=== PATIENT | male | born 1950 | race Caucasian/White ===

== ENCOUNTER 2024-02-02 15:41 | Outpatient (CLI) | payer MEDICARE, SELFPAY ==
[2024-02-02 16:35] LABS: Basophils # 0.2 K/mm3 (0-0.2); Basophils % 1.3 % (0.1-2.0); Eosinophils # 0.9 K/mm3 (0.0-0.4); Eosinophils % 7.3 % (0.1-12.0); Hematocrit 38.1 % (42.0-52.0); Hemoglobin 12.2 g/dL (14.1-18.0); Lymphocytes # 2.6 K/mm3 (0.7-4.5); Lymphocytes % 21.8 % (10-50); Mean Corpuscular Volume 87.5 fl (80-94); Mean Platelet Volume 9.5 fl (7.4-10.4); Monocytes # 0.8 K/mm3 (0.1-1.0); Monocytes % 6.3 % (1.7-9.3); Neutrophils # 7.6 K/mm3 (1.8-7.8); Neutrophils % 63.4 % (37.0-80.0); Platelet Count 343 K/mm3 (142-424); Red Blood Count 4.35 M/mm3 (4.60-6.20); Red Cell Distribution Width 16.1 % (11.5-17.5); White Blood Count 11.9 K/mm3 (4.8-10.8)
[2024-02-02 16:56] LABS: Alanine Aminotransferase 20 U/L (12-78); Albumin Level 3.8 g/dl (3.5-5.0); Alkaline Phosphatase 92 U/L (38-126); Anion Gap 11.9 mEq/L (5-15); Aspartate Amino Transferase 23 U/L (17-59); Bilirubin,Direct 0.1 mg/dl (0.0-0.4); Bilirubin,Indirect 0.2 mg/dL (0.0-0.9); Bilirubin,Total 0.3 mg/dl (0.2-1.3); Bilirubin,Unconjugated 0.2 mg/dL (0.0-1.1); Blood Urea Nitrogen 24 mg/dl (9-20); Calcium 9.3 mg/dl (8.4-10.2); Carbon Dioxide 23 mmol/L (22.0-30.0); Chloride 108 mmol/L (98-107); Cholesterol 193 mg/dl (140-200); Estimated Glomerular Filt Rate 54 ml/min (>60); GFR (African American) 65 ML/MIN (>60); Glucose 160 mg/dl (74-100); HDL Cholesterol 48 mg/dl (40-60); Potassium 4.9 mmoL/L (3.5-5.1); Sodium 138 mmol/L (136-145); Total Protein,Serum 6.2 g/dl (6.3-8.2); Triglycerides 150 mg/dl (30-150); VLDL Cholesterol 30 mg/dL (0-40)
[2024-02-02 17:06] LABS: Direct LDL Cholesterol 96.27 mg/dL (100-129)
[2024-02-02 17:10] LABS: Free T4 (Free Thyroxine) 1.37 ng/dl (0.78-2.19)
[2024-02-02 17:25] LABS: Thyroid Stimulating Hormone 1.96 uIU/mL (0.465-4.68)
[2024-02-02 17:30] LABS: Hemoglobin A1C 7.8 % (4.0-6.0)
== END 2024-02-02 23:59 | disposition home or self-care (01) ==
LOC: LAB 15:43
PROVIDERS: PCP Emergency Medicine; Visit Provider Nurse Practitioner Family
DX: R55 Syncope and collapse (principal); E78.2 Mixed hyperlipidemia; I49.9 Cardiac arrhythmia, unspecified; E11.9 Type 2 diabetes mellitus without complications; Z79.4 Long term (current) use of insulin; Z79.84 Long term (current) use of oral hypoglycemic drugs
CPT/HCPCS: 36415; 80048; 80061; 80076; 83036; 84439; 84443; 85025; 93270

== ENCOUNTER 2024-02-23 11:51 | Outpatient (CLI) | payer MEDICARE, OTHER, SELFPAY ==
--- NOTE | 2024-02-23 | CA_ITS ---
APPROVED REPORT Exam: Pharmacologic Technologist: Hyun Wheat Ht: 5 ft 10 in Wt: 275 lbs BSA: 2.39 m2 HR: 63 bpm BP: 159/78 mmHg Rhythm: NSR Indications: Syncope Medical History Medications: Levothyroxine,,,,, Aspirin,,,,, Lispro,,,,, Metformin,,,,, Vitamin D3,,,,, Losartan,,,,, Pantoprazole,,,,, Atorvastatin,,,,, HCTZ,,,,, Carvedilol,,,,, Buspirone,,,,, INSULIN,,,,, Stress Test Details Test: LEXISCAN HR Resting HR: 64 bpm Max Heart Rate (APMHR): 147 bpm Max HR Achieved: 81 bpm Target HR (85% APMHR): 125 bpm % of APMHR: 55 Recovery HR: 69 bpm BP Resting BP: 159.0/78.0 mmHg Max BP: 159.0/78.0 mmHg Recovery BP: 158.0/73.0 mmHg ECG Resting ECG: Normal sinus rhythm Stress ECG: No significant ST changes Arrhythmia: PVCs Clinical Exercise duration: 04:19 min Highest Stage Achieved: Exercise capacity: 1.0 METs Stress ECG Conclusion Symptoms: Mild shortness of air, chest tightness and head discomfort. Arrhythmias/Ectopy: PVCs ST-T Changes: No significant ST changes. Conclusion: Unremarkable Lexiscan stress. Myoview images reported separately. Test Summary REST . . . . . . . Resting REST 05:28 . . 64 . 159/ 78 . . Stage 1 . . . . . . . Myoview Injected Stage 1 01:00 . . 71 . . . . Stage 2 . . . . . . . chest pressure Stage 2 01:00 . . 79 . . . . Stage 3 01:00 . . 75 . 151/ 72 . . Stage 4 01:00 . . 78 . 158/ 73 . . Stage 4 01:19 . . 81 . 148/ 70 . Stop exercise at 04:19 RECOVERY 01:00 . . 72 . . . . RECOVERY 02:00 . . 70 . 151/ 76 . . RECOVERY 03:00 . . 69 . 158/ 73 . . RECOVERY 03:30 . . 69 . 158/ 73 . . Electronically signed by : Myra Campbell MD 02/24/2024 12:05:45
--- NOTE | 2024-02-23 11:52 | NM_ITS ---
APPROVED REPORT Exam: Nuclear Stress Test Indication: HTN, OBESITY, DM, HYPERLIPIDEMIA, TOB USE, SOB, SYNCOPE, FTIGUE Patient Location: Outpatient Stress Tech: Hyun Wheat NH Tech:Tequila Weston CHRISTIANO RT (R)(N)(M) Ht: 5 ft 10 in Wt: 272 lbs HR: 64 bpm BP: 159/78 mmHg BSA: 2.38 m2 TID: 1.02 BMI: 39.0 History: HTN, OBESITY, DM, HYPERLIPIDEMIA, TOB USE, SOB, SYNCOPE, FTIGUE PT COULD NOT LAY ON STOMACH FOR PRONE IMAGES Procedure: Patient received 0.4 mg of intravenous Lexiscan, resting heart rate 64 bpm, resting blood pressure 159/78 mmHg, with Lexiscan maximum heart rate achieved was 81 bpm which is % of the maximum predicted heart rate and blood pressure was 159/78 mmHg. With Lexiscan, patient denied any complaint of chest pain. Cardiac Stress and Resting SPECT Images: Cardiac Stress and Resting SPECT images were obtained using technetium 99m Myoview 31.0 mCi stress and 10.32 mCi at rest. Raw images demonstrate significant soft tissue and diaphragmatic overlap with the cardiac borders. The patient is also unable to lie on his abdomen. Therefore, prone stress imaging could not be performed. This may affect the diagnostic interpretation of the study findings. Resting and stress imaging in supine positions demonstrate a large sized, severe, predominantly fixed perfusion defect in the inferior LV wall from the base and extending towards the inferoapical region. There is minimal surrounding reversibility. Gated imaging demonstrates normal global LV systolic function. There is mild hypokinesis of the basal inferior LV wall. LVEF is calculated at 55%. Conclusion: Large sized, severe, predominantly fixed perfusion defect in the inferior LV wall from the base and extending towards the inferoapical region. There is minimal surrounding reversibility. Gated imaging demonstrates normal global LV systolic function. There is mild hypokinesis of the basal inferior LV wall. LVEF is calculated at 55%. Electronically signed by : Myra Campbell MD 02/24/2024 12:07:56
[2024-02-23] MEDS: SODIUM CHLORIDE 0.9% 10ML SYR (RAD ONLY) 10 ML IV ×2 (12:00→13:00)
[2024-02-23] MEDS: REGADENOSON 0.4MG/5ML SYRINGE 0.400000000000000022 MG IV (13:30)
[2024-02-23] MEDS: ISOTOPE MYOVIEW (PER STUDY) 1 DOSE IV (13:37)
--- NOTE | 2024-02-23 13:43 | CA_ITS ---
FINAL REPORT TECHNIQUE: Color Doppler, duplex Doppler and hazel scale sonography of the bilateral neck arterial vasculature was performed. Velocities were measured in the carotid arteries. Stenosis evaluation based on the validated velocity criteria. CLINICAL HISTORY: TERRANCE,PRIOR LT ENDART FINDINGS: The peak systolic velocity of the right common carotid artery is 67 cm/s. The peak systolic velocity of the right internal carotid artery is 135 cm/s and end diastolic velocity 15 cm/s. The ICA/CCA ratio is 2.3. A small amount of plaque is present. The right external carotid artery is patent. The right vertebral artery is patent with antegrade flow. The peak systolic velocity of the left common carotid artery is 90 cm/s. The peak systolic velocity of the left internal carotid artery is 163 cm/s and end diastolic velocity 35 cm/s. The ICA/CCA ratio is 3.0. A small amount of plaque is present. The left external carotid artery is patent.The left vertebral artery is patent with antegrade flow. IMPRESSION: Less than 50% bilateral carotid stenoses. Bilateral patent vertebral arteries with antegrade flow. If indicated, CTA or MRA could further evaluate. Reviewed, Interpreted and Dictated by Yoshi French III, MD Transcribed by Rose De Leon Authenticated and [facility]
--- NOTE | 2024-02-23 13:43 | CA_ITS ---
APPROVED REPORT EXAM: Comprehensive 2D, Doppler, and color-flow Echocardiogram Head End Desizing Machine Operator: Savi Springer RT(R) Ht: 5 ft 10 in Wt: 275lbs BSA: 2.39 BP: 113/63 mmHg Indications: SOA, COPD, HTN, DM, Syncope, sarcoid, O2 dependent, hyperlipidemia. 2D Dimensions LVEF (Hung's) 67.00 % M: 52 - 72 LV Volume 139.40 mL M: 62 - 150 LV Volume Index 58.3 mL/m2 M: 34 - 74 LA Volume 88.50 mL LA Volume Index 37.03 mL/m2 (M/F) 16-34 EF AP4 67.30 % EF AP2 67.3 % EF BP 67.0 % GL Strain -21.1 % M-Mode Dimensions RVDd 3.15 cm (0.9-2.6) LA Diam 4.39 cm (1.9-4.0) LVDd 5.04 cm (3.5-5.7) LVDs 3.64 cm (3.5-5.7) IVSd 1.12 cm (0.6-1.1) PWd 1.12 cm (0.6-1.1) EF (Teich) 53.60% FS 27.80% EDV (Teich) 120.50 mL ESV (Teich) 55.90 mL LV Diastology E Decel Time 293 (160-240 msec) E/A Ratio 0.9 Mitral Valve MV E Max Pranav. 83.0 (40-130 cm/s) MV A Velocity 97.0 (40-130 cm/s) E/A Ratio 0.86 MV PHT 86.0 ms Left Ventricle The left ventricle is normal size. The left ventricular systolic function is normal. The left ventricular ejection fraction is within the normal range. Increased LV wall thickness. There is normal LV segmental wall motion. Transmitral Doppler flow pattern suggests impaired LV relaxation. LVEF is 60%. Right Ventricle The right ventricle is normal size. The right ventricular systolic function is normal. Atria The left atrium is mildly dilated. The right atrium size is normal. The interatrial septum is not well-visualized. Aortic Valve The aortic valve is mildly thickened. There is no aortic valvular stenosis. Trace aortic regurgitation. Mitral Valve The mitral valve leaflets are mildly thickened. Trace mitral regurgitation. No evidence of mitral valve stenosis. Tricuspid Valve The tricuspid valve leaflets are thin and pliable. Trace tricuspid regurgitation. There is insufficient TR jet to estimate RVSP. Pulmonic Valve The pulmonary valve is normal in structure. Trace pulmonic regurgitation. Great Vessels The aortic root is normal in size. The ascending aorta is not well-visualized. The IVC is not well-visualized. Pericardium There is no pericardial effusion. Other Information Study Quality: Fair Conclusion Normal biventricular systolic function. No significant valvular stenosis or regurgitation. If clinical concern for cardiac sarcoidosis (in the setting of known history of sarcoidosis), further evaluation with cardiac MRI (cardiomyopathy protocol) is recommended. Electronically signed by : Myra Campbell MD 02/27/2024 22:01:59
== END 2024-02-23 23:59 | disposition home or self-care (01) ==
PROVIDERS: PCP Emergency Medicine; Visit Provider Nurse Practitioner Family
DX: R06.02 Shortness of breath (principal); R55 Syncope and collapse; I65.23 Occlusion and stenosis of bilateral carotid arteries; I10 Essential (primary) hypertension
CPT/HCPCS: 78452; 93017; 93018; 93306; 93880; A9502; J2785

== ENCOUNTER 2024-03-07 08:47 | Day surgery (SDC) | payer MEDICARE, OTHER, SELFPAY ==
[2024-03-07] VITALS (9 sets, daily range): BP systolic 142–163; BP diastolic 85–93; PULSE 70–85; RESP 15–18; TEMP 36.6; O2SAT 95–97; BMI 39.4
--- NOTE | 2024-03-07 07:18 | IR_ITS ---
APPROVED REPORT Patient Location: Outpatient PROCEDURES Left heart catheterization Left ventriculogram Selective coronary angiogram INDICATION Abnormal Myoview, Angina pectoris, Informed consent was obtained prior to the procedure. COMPLICATIONS NONE Estimated Blood Loss: LESS THAN 10 ML TECHNIQUE One percent lidocaine used to anesthetize the right anterior aspect of the wrist. The right radial artery was accessed via the Seldinger technique. A 6 Singaporean sheath was placed in the right radial artery. 2.5 mg of Verapamil, 800 mcg of nitroglycerin, 1mg Lidocaine and 5000 U Heparin were given through the arterial sheath. The papa catheter was also used to perform left heart catheterization, left ventriculogram and selective coronary angiogram. At the end of the procedure the sheath was removed good hemostasis was achieved using Traclet band, patient was transferred to the postop holding area in stable condition. ANGIOGRAPHIC RESULTS The left main artery Normal The left anterior descending artery Has proximal 2030% stenosis with mid vessel 20 to 30% stenosis along a tortuous bend The circumflex artery Dominant gives rise to a large ramus intermedius which has a proximal 40% stenosis. The true circumflex artery has mild 30% stenosis The right coronary artery Nondominant yet still large with 10 to 20% luminal regularities The FINK ventriculogram reveals Normal 65% The left ventricular end-diastolic pressure 15 mmHg IMPRESSION Mild to moderate coronary disease as described above Normal ejection fraction Borderline elevated LVEDP PLAN 1. Medical management 2. Aggressive risk factor modification Electronically signed by : Alessandro Davis MD 03/07/2024 13:58:40
[2024-03-07 09:17] LABS: Basophils # 0.2 K/mm3 (0-0.2); Basophils % 1.2 % (0.1-2.0); Eosinophils # 0.9 K/mm3 (0.0-0.4); Eosinophils % 6.9 % (0.1-12.0); Hematocrit 39.2 % (42.0-52.0); Hemoglobin 12.3 g/dL (14.1-18.0); Lymphocytes # 3.7 K/mm3 (0.7-4.5); Lymphocytes % 27.4 % (10-50); Mean Corpuscular HGB Conc 31.3 g/dL (31.8-35.4); Mean Corpuscular Volume 86.3 fl (80-94); Monocytes # 0.8 K/mm3 (0.1-1.0); Neutrophils # 7.8 K/mm3 (1.8-7.8); Neutrophils % 58.3 % (37.0-80.0); Platelet Count 383 K/mm3 (142-424); Red Blood Count 4.55 M/mm3 (4.60-6.20); Red Cell Distribution Width 15.2 % (11.5-17.5); White Blood Count 13.4 K/mm3 (4.8-10.8)
[2024-03-07 09:22] LABS: Anion Gap 15.7 mEq/L (5-15); Blood Urea Nitrogen 18 mg/dl (9-20); Calcium 9.5 mg/dl (8.4-10.2); Carbon Dioxide 28 mmol/L (22.0-30.0); Chloride 100 mmol/L (98-107); Creatinine Clearance Estimated 97 mL/min (50-200); Estimated Glomerular Filt Rate 59 ml/min (>60); GFR (African American) 72 ML/MIN (>60); Glucose 177 mg/dl (74-100); Potassium 3.7 mmoL/L (3.5-5.1); Sodium 140 mmol/L (136-145)
[2024-03-07] MEDS: VERAPAMIL 2.5MG/ML 2ML VIAL 2.5 MG IV (13:28)
[2024-03-07] MEDS: LIDOCAINE 1% 10ML MDV 20 ML IJ (13:28)
[2024-03-07] MEDS: HEPARIN 1,000 UNITS/500ML NS (CATH LAB) 3000 UNIT IV (13:28)
[2024-03-07] MEDS: diphenhydrAMINE 50MG/ML VIAL 50 MG IV (13:28)
[2024-03-07] MEDS: HEPARIN 1,000 UNITS/ML 10ML VIAL (CATH LAB) 10000 UNIT IV (13:29)
[2024-03-07] MEDS: NITROGLYCERIN 800MCG/8ML SYR (CATH LAB) 800 MCG IA (13:29)
[2024-03-07] MEDS: IOPAMIDOL-370 (76%);100ML BOTTLE 60 ML IV (14:28)
[2024-03-07] MEDS: FENTANYL 100MCG/2ML VIAL 50 MCG IV (14:43)
[2024-03-07] MEDS: MIDAZOLAM HCL 1MG/1ML 5ML VIAL 1 MG IV (14:44)
== END 2024-03-07 15:53 | disposition home or self-care (01) ==
PROVIDERS: PCP Emergency Medicine; Visit Provider Internal Medicine
DX: R93.1 Abnormal findings on diagnostic imaging of heart and coronary circulation (principal); D86.9 Sarcoidosis, unspecified; R55 Syncope and collapse; Z99.81 Dependence on supplemental oxygen; J44.89 Other specified chronic obstructive pulmonary disease; I65.23 Occlusion and stenosis of bilateral carotid arteries; I71.21 Aneurysm of the ascending aorta, without rupture; E11.9 Type 2 diabetes mellitus without complications; Z79.4 Long term (current) use of insulin; E78.2 Mixed hyperlipidemia; I10 Essential (primary) hypertension; R42 Dizziness and giddiness; R06.02 Shortness of breath; I25.118 Atherosclerotic heart disease of native coronary artery with other forms of angina pectoris; Z79.899 Other long term (current) drug therapy
CPT/HCPCS: 80048; 85025; 93458; 99152; C1725; C1760; C1769; J1644; Q9967

== ENCOUNTER 2024-07-11 15:13 | Outpatient (CLI) | payer MEDICARE, OTHER, SELFPAY ==
[2024-07-11 16:04] LABS: Basophils # 0.1 K/mm3 (0-0.2); Basophils % 0.5 % (0.1-2.0); Eosinophils # 0.1 K/mm3 (0.0-0.4); Eosinophils % 0.9 % (0.1-12.0); Hematocrit 38.6 % (42.0-52.0); Lymphocytes # 1.3 K/mm3 (0.7-4.5); Mean Corpuscular Hemoglobin 27.7 pg (27.0-31.2); Mean Corpuscular Volume 89.5 fl (80-94); Mean Platelet Volume 8.5 fl (7.4-10.4); Monocytes # 0.5 K/mm3 (0.1-1.0); Neutrophils # 8.6 K/mm3 (1.8-7.8); Neutrophils % 81.7 % (37.0-80.0); Platelet Count 315 K/mm3 (142-424); Red Blood Count 4.32 M/mm3 (4.60-6.20); Red Cell Distribution Width 15.4 % (11.5-17.5); White Blood Count 10.5 K/mm3 (4.8-10.8)
[2024-07-11 16:22] LABS: C-Reactive Protein 4.7 mg/L (0-4)
[2024-07-14 15:18] LABS: Anti-Cyclic Citrullinated Pept 6 units (0-19)
[2024-07-14 23:13] LABS: D001-IgE D pteronyssinus <0.10 kU/L (Class 0); D002-IgE D farinae <0.10 kU/L (Class 0); E001-IgE Cat Dander <0.10 kU/L (Class 0); E005-IgE Dog Dander <0.10 kU/L (Class 0); E072-IgE Mouse Urine <0.10 kU/L (Class 0); G002-IgE Bermuda Grass <0.10 kU/L (Class 0); G006-IgE Timothy Grass <0.10 kU/L (Class 0); I006-IgE Cockroach, German <0.10 kU/L (Class 0); Immunoglobulin E, Total 170 IU/mL (6-495); M001-IgE Penicillium chrysogen <0.10 kU/L (Class 0); M002-IgE Cladosporium herbarum <0.10 kU/L (Class 0); M003-IgE Aspergillus fumigatus <0.10 kU/L (Class 0); M006-IgE Alternaria alternata <0.10 kU/L (Class 0); T001-IgE Maple/Box Elder <0.10 kU/L (Class 0); T003-IgE Common Silver Birch <0.10 kU/L (Class 0); T006-IgE Cedar, Mountain <0.10 kU/L (Class 0); T007-IgE Oak, White <0.10 kU/L (Class 0); T008-IgE Elm, American <0.10 kU/L (Class 0); T010-IgE Walnut <0.10 kU/L (Class 0); T011-IgE Maple Leaf Sycamore <0.10 kU/L (Class 0); T014-IgE Cottonwood <0.10 kU/L (Class 0); T015-IgE Ash, White <0.10 kU/L (Class 0); T022-IgE Pecan, Hickory <0.10 kU/L (Class 0); T070-IgE White Mulberry <0.10 kU/L (Class 0); W001-IgE Ragweed, Short <0.10 kU/L (Class 0); W011-IgE Thistle, Russian <0.10 kU/L (Class 0); W014-IgE Pigweed, Common <0.10 kU/L (Class 0); W018-IgE Sheep Sorrel <0.10 kU/L (Class 0)
[2024-07-25 03:43] LABS: Rheumatoid Factor IGM 8 U (<7)
[2024-08-29 11:40] LABS: Antinuclear Antibodies (ANA) Negative
== END 2024-07-11 23:59 | disposition home or self-care (01) ==
LOC: LAB 15:16
PROVIDERS: PCP Emergency Medicine; Visit Provider Internal Medicine Pulmonary Disease
DX: R06.09 Other forms of dyspnea (principal); J84.9 Interstitial pulmonary disease, unspecified; J30.9 Allergic rhinitis, unspecified; J45.909 Unspecified asthma, uncomplicated
CPT/HCPCS: 36415; 82785; 85025; 86003; 86038; 86140; 86200; 86225; 86235; 86431

== ENCOUNTER 2024-08-09 14:13 | Outpatient (CLI) | payer MEDICARE, OTHER, SELFPAY ==
--- NOTE | 2024-08-09 14:17 | CT_ITS ---
PROCEDURE INFORMATION: Exam: CT Chest Without Contrast; Diagnostic Exam date and time: 08/09/2024 2:17 PM Age: 74 years old Clinical indication: Shortness of breath; Additional info: HX of nodule and SOA TECHNIQUE: Imaging protocol: Diagnostic computed tomography of the chest without contrast. Radiation optimization: All CT scans at this facility use at least one of these dose optimization techniques: automated exposure control; mA and/or kV adjustment per patient size (includes targeted exams where dose is matched to clinical indication); or iterative reconstruction. COMPARISON: US CA CAROTID DUPLEX BI 02/23/2024 2:34 PM FINDINGS: Lungs: 8.3 mm pulmonary nodule in the left upper lobe. There is mild spiculation. (series 2, image 17). Pleural spaces: Unremarkable. No pneumothorax. No pleural effusion. Heart: There is calcification of the aortic valve annulus. There is calcification of the mitral valve annulus. Coronary arteries: Coronary artery calcifications may indicate coronary artery disease. Lymph nodes: Pathologic node anterior to the trachea 14 x 10 mm (series 2, image 23). 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 Gallbladder and biliary ducts: Cholecystectomy Spleen: The spleen demonstrates punctate calcifications, consistent with remote granulomatous organism exposure. Kidneys: Nonobstructing right renal calculus Bones/joints: Unremarkable. No acute fracture. Soft tissues: Unremarkable. IMPRESSION: 1. 8.3 mm pulmonary nodule in the left upper lobe. There is mild spiculation. (series 2, image 17). For both low risk and high risk patients, consider CT Chest at 3 months, PET/CT, or biopsy. (Reference: Rojas) References: Roajs Veloz et al. Guidelines for Management of Incidental Pulmonary Nodules Detected on CT Images: From the Fleischner Society 2017. Radiology. 2017;284(1):228-243. 2. Pathologic node anterior to the trachea 14 x 10 mm (series 2, image 23). 3. 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
[2024-08-09] MEDS: ALBUTEROL 0.083% 2.5 MG/3 ML NEB IH (15:20)
== END 2024-08-09 23:59 | disposition home or self-care (01) ==
LOC: RAD 14:14
PROVIDERS: PCP Emergency Medicine; Visit Provider Internal Medicine Pulmonary Disease
DX: J84.9 Interstitial pulmonary disease, unspecified (principal); R06.09 Other forms of dyspnea
CPT/HCPCS: 71250; 94060; 94618; 94726; 94729; J7613

== ENCOUNTER 2024-08-31 11:15 | Outpatient (CLI) | payer MEDICARE, OTHER, SELFPAY ==
[2024-08-31 11:26] LABS: Coronavirus 19, PCR Not Detected (NotDetected); Influenza A, PCR Not Detected (NotDetected); Influenza B, PCR Not Detected (NotDetected)
--- NOTE | 2024-08-31 11:30 | XR_ITS ---
FINAL REPORT CLINICAL HISTORY: congestion/shortness of breath x 1 week asthma, regularly on oxygen COMPARISON: None FINDINGS: Two views of the chest were obtained. The heart size and pulmonary vascularity are within normal limits. The mediastinum is normal. There is mild pulmonary scarring/fibrosis. There is no pneumothorax. There are several chronic right lateral rib fractures. IMPRESSION: No active cardiopulmonary disease. Reviewed, Interpreted and Dictated by Yoshi French III, MD Transcribed by Maria G Ledezma Authenticated and [facility]
== END 2024-08-31 23:59 | disposition home or self-care (01) ==
LOC: LAB 11:19
PROVIDERS: PCP Emergency Medicine; Visit Provider Internal Medicine Pulmonary Disease
DX: U07.1 COVID-19 (principal); R06.02 Shortness of breath
CPT/HCPCS: 71046; 87636

== ENCOUNTER 2024-10-09 06:15 | Outpatient (CLI) | payer MEDICARE, OTHER, SELFPAY ==
--- NOTE | 2024-10-09 06:27 | CT_ITS ---
FINAL REPORT TECHNIQUE: Axial CT without IV contrast administration. Coronal and sagittal reconstructions obtained and reviewed. This study was performed with techniques to keep radiation doses as low as reasonably achievable, (ALARA). Individualized dose reduction techniques using automated exposure control or adjustment of mA and/or kV according to the patient''s size were employed. CLINICAL HISTORY: 3-month follow-up COMPARISON: CT high-res 08/09/2024 FINDINGS: There are increased markings in the left upper lobe which are compatible with scarring. No suspicious pulmonary nodule is identified. There is mild right paratracheal adenopathy which is stable and considered benign. No pleural or pericardial effusion is seen. Based on coronary reconstruction images, the mid ascending aorta measures up to 39 mm which is borderline enlarged. IMPRESSION: No suspicious pulmonary nodule. Reviewed, Interpreted and Dictated by Michelle Aggarwal MD Transcribed by Therese Burris Authenticated and [facility]
== END 2024-10-09 23:59 | disposition home or self-care (01) ==
LOC: RAD 06:16
PROVIDERS: PCP Emergency Medicine; Visit Provider Internal Medicine Pulmonary Disease
DX: R91.8 Other nonspecific abnormal finding of lung field (principal)
CPT/HCPCS: 71250

== ENCOUNTER 2024-11-13 15:01 | Outpatient (CLI) | payer MEDICARE, OTHER, SELFPAY ==
--- NOTE | 2024-11-13 15:06 | XR_ITS ---
FINAL REPORT TECHNIQUE: Chest PA & Lateral CLINICAL HISTORY: SOB COMPARISON: 08/31/2024 FINDINGS: 2 views of the chest were performed. The heart size is normal. The mediastinum is within normal limits. Chronic changes are noted at the lung bases. There is no acute cardiopulmonary process. There are no pleural effusions. There is no pneumothorax. The bony thorax appears intact. IMPRESSION: No acute cardiopulmonary process. Reviewed, Interpreted and Dictated by Raciel Hess MD Transcribed by Maria G Ledezma Authenticated and [facility]
== END 2024-11-13 23:59 | disposition home or self-care (01) ==
LOC: RAD 15:03
PROVIDERS: PCP Emergency Medicine; Visit Provider Internal Medicine Pulmonary Disease
DX: R06.09 Other forms of dyspnea (principal)
CPT/HCPCS: 71046

== ENCOUNTER 2024-11-23 09:05 | Outpatient (CLI) | payer MEDICARE, OTHER, SELFPAY ==
[2024-11-23 09:19] LABS: Basophils # 0.1 K/mm3 (0-0.2); Basophils % 0.7 % (0.1-2.0); Eosinophils # 0.5 K/mm3 (0.0-0.4); Hematocrit 38.1 % (42.0-52.0); Hemoglobin 12.1 g/dL (14.1-18.0); Lymphocytes # 4.2 K/mm3 (0.7-4.5); Lymphocytes % 26.3 % (10-50); Mean Corpuscular HGB Conc 31.8 g/dL (31.8-35.4); Mean Corpuscular Hemoglobin 26.5 pg (27.0-31.2); Mean Corpuscular Volume 83.6 fl (80-94); Mean Platelet Volume 11.8 fl (7.4-10.4); Monocytes # 1.4 K/mm3 (0.1-1.0); Monocytes % 8.9 % (1.7-9.3); Neutrophils # 9.5 K/mm3 (1.8-7.8); Neutrophils % 59.3 % (37.0-80.0); Platelet Count 352 K/mm3 (142-424); Red Blood Count 4.56 M/mm3 (4.60-6.20); White Blood Count 15.9 K/mm3 (4.8-10.8)
[2024-11-23 09:24] LABS: MANUAL DIFFERENTIAL MANUAL DIFFERENTIAL (MANUAL DIFF)
[2024-11-23 09:41] LABS: Albumin Level 3.6 g/dl (3.5-5.0); Chloride 104 mmol/L (98-107); Potassium 4.8 mmoL/L (3.5-5.1); Sodium 139 mmol/L (136-145)
[2024-11-23 09:43] LABS: Bilirubin,Unconjugated 0.2 mg/dL (0.0-1.1); Blood Urea Nitrogen 26 mg/dl (9-20); Estimated Glomerular Filt Rate 82 ml/min (>60); GFR (African American) 100 ML/MIN (>60)
[2024-11-23 09:44] LABS: Alanine Aminotransferase 20 U/L (12-78); Alkaline Phosphatase 65 U/L (38-126); Anion Gap 8.8 mEq/L (5-15); Aspartate Amino Transferase 18 U/L (17-59); Bilirubin,Indirect 0.2 mg/dL (0.0-0.9); Bilirubin,Total 0.2 mg/dl (0.2-1.3); Calcium 9.5 mg/dl (8.4-10.2); Carbon Dioxide 31 mmol/L (22.0-30.0); Chol/HDL Ratio 2.7 (1-3.5); Cholesterol 148 mg/dl (140-200); Glucose 148 mg/dl (74-100); HDL Cholesterol 54 mg/dl (40-60); Magnesium 1.9 mg/dl (1.6-2.3); Total Protein,Serum 5.7 g/dl (6.3-8.2); Triglycerides 98 mg/dl (30-150); VLDL Cholesterol 20 mg/dL (0-40)
[2024-11-23 09:55] LABS: Direct LDL Cholesterol 62.83 mg/dL (100-129); Hemoglobin A1C 7.3 % (4.0-6.0)
[2024-11-23 10:01] LABS: Free T4 (Free Thyroxine) 1.39 ng/dl (0.78-2.19)
[2024-11-23 10:15] LABS: Thyroid Stimulating Hormone 0.51 uIU/mL (0.465-4.68)
[2024-11-23 10:26] LABS: Eosinophils % 4 % (0-3); Lymphocytes % 31 % (10-50); Monocytes % 3 % (2-9); Neutrophils % 62 % (42-76); Platelet Estimate Normal; RBC Morphology Normal; Total Cells Counted 100
== END 2024-11-23 23:59 | disposition home or self-care (01) ==
LOC: LAB 09:06
PROVIDERS: PCP Emergency Medicine; Visit Provider Nurse Practitioner
DX: Z79.4 Long term (current) use of insulin (principal); E11.9 Type 2 diabetes mellitus without complications; I25.10 Atherosclerotic heart disease of native coronary artery without angina pectoris; D86.9 Sarcoidosis, unspecified; J44.89 Other specified chronic obstructive pulmonary disease; I65.23 Occlusion and stenosis of bilateral carotid arteries; I71.21 Aneurysm of the ascending aorta, without rupture; E78.2 Mixed hyperlipidemia; I10 Essential (primary) hypertension; R06.02 Shortness of breath; I65.29 Occlusion and stenosis of unspecified carotid artery
CPT/HCPCS: 36415; 80048; 80061; 80076; 83036; 83735; 84439; 84443; 85007; 85025; 85027

== ENCOUNTER 2025-03-01 17:41 | Emergency (ER) | payer MEDICARE, OTHER, SELFPAY ==
[2025-03-01 17:45] VITALS: BP 109/56; PULSE 88; RESP 18; TEMP 36.6; O2SAT 94; BMI 36.0
--- NOTE | 2025-03-01 18:04 | ECG_ITS ---
APPROVED REPORT Exam: Resting ECG HR:85 bpm ECG Measurements Heart Rate 85 AXES LA 184 P 51 QRSd 101 QRS 70 QT 368 T 78 QTc 411 Conclusion SINUS RHYTHM MINIMAL ST DEPRESSION [0.025+ mV ST DEPRESSION] No STEMI Electronically signed by : NIGHAT GARCIA, 03/02/2025 23:38:40
[2025-03-01 18:09] LABS: VBG Base Excess -6.9 mmol/L (-2.4-2.3); VBG Oxygen Saturation 95.9 % (50-70); VBG PCO2 36.2 mmol/L (35-51); VBG PH 7.34 mmol/L (7.31-7.41); VBG PO2 87.4 mmol/L (28-40); VBG Total CO2 20.1 mmol/L (23-27)
[2025-03-01 18:11] LABS: Lactate Venous 4.6 mmol/L (0.4-2.0)
[2025-03-01 18:13] LABS: Coronavirus 19, PCR Not Detected (NotDetected); Influenza A, PCR Not Detected (NotDetected); Influenza B, PCR Not Detected (NotDetected)
[2025-03-01 18:14] LABS: Chloride 106 mmol/L (98-107)
--- NOTE | 2025-03-01 18:14 | XR_ITS ---
PROCEDURE INFORMATION: Exam: XR Chest Exam date and time: 03/01/2025 6:25 PM Age: 74 years old Clinical indication: Shortness of breath; SOA, HX of copd and asthma; Additional info: Resp failure TECHNIQUE: Imaging protocol: Radiologic exam of the chest. Views: 1 view. COMPARISON: CR XR CHEST 2V 11/13/2024 3:06 PM FINDINGS: Lungs: Lung volumes are mildly diminished.There is mild elevation of the right hemidiaphragm. There are mildly increased linear/interstitial and patchy markings in the lung bases which appear slightly more prominent when compared with prior study, some of which could be due to lordotic positioning of the patient. No large/new focal areas of consolidation. Pleural spaces: No pleural effusions. Negative for pneumothorax. Heart/Mediastinum: Cardiac silhouette and pulmonary vasculature are within range of normal. Bones/joints: There is no evidence of acute fracture. A few remote right-sided rib fractures are stable. IMPRESSION: 1. Lordotic positioning. 2. Lung volumes mildly diminished with mild elevation of the right hemidiaphragm. 3. Mild linear/interstitial and patchy markings in the lung bases which appear slightly more prominent when compared with prior study, some of which could be due to lordotic positioning of the patient. Correlate clinically.
[2025-03-01 18:15] LABS: Albumin Level 4.1 g/dl (3.5-5.0); Potassium 4.2 mmoL/L (3.5-5.1); Sodium 137 mmol/L (136-145)
[2025-03-01 18:18] LABS: Alanine Aminotransferase 15 U/L (12-78); Albumin/Globulin Ratio 1.5 (1.1-1.8); Alkaline Phosphatase 82 U/L (38-126); Anion Gap 16.2 mEq/L (5-15); Aspartate Amino Transferase 22 U/L (17-59); Blood Urea Nitrogen 24 mg/dl (9-20); Calcium 8.7 mg/dl (8.4-10.2); Carbon Dioxide 19 mmol/L (22.0-30.0); Creatinine Clearance Estimated 72 mL/min (50-200); Estimated Glomerular Filt Rate 50 ml/min (>60); GFR (African American) 60 ML/MIN (>60); Globulin 2.8 g/dL (1.3-3.2); Glucose 163 mg/dl (74-100); Magnesium 1.7 mg/dl (1.6-2.3); Total Protein,Serum 6.9 g/dl (6.3-8.2)
[2025-03-01 18:19] LABS: Bilirubin,Total 0.1 mg/dl (0.2-1.3); Lactic Acid 3.8 mmol/L (0.7-2.1)
[2025-03-01 18:20] LABS: Basophils # 0.2 K/mm3 (0-0.2); Basophils % 1.5 % (0.1-2.0); Eosinophils # 1.3 Kmm3 (0.0-0.4); Eosinophils % 10.3 % (0.1-12.0); Immature Granulocytes # 0.07 10^3uL; Immature Granulocytes % 0.5 %; Lymphocytes % 22.7 % (10-50); Mean Corpuscular HGB Conc 31.6 g/dL (31.8-35.4); Mean Corpuscular Hemoglobin 25.6 pg (27.0-31.2); Mean Corpuscular Volume 81.2 fl (80-94); Mean Platelet Volume 11.6 fl (7.4-10.4); Monocytes # 1.2 K/mm3 (0.1-1.0); Monocytes % 8.8 % (1.7-9.3); Neutrophils # 7.3 K/mm3 (1.8-7.8); Neutrophils % 56.2 % (37.0-80.0); Nucleated Red Blood Cells # 0 10^3/uL; Nucleated Red Blood Cells % 0 %; Platelet Count 338 K/mm3 (142-424); Red Blood Count 4.68 M/mm3 (4.60-6.20); Red Cell Distribution Width 14.7 % (11.5-17.5); Red Cell Distribution Width-SD 43.1 fL; White Blood Count 13.1 K/mm3 (4.8-10.8)
[2025-03-01] MEDS: METHYLPREDNISOLONE SOD SUCC 125MG VIAL 125 MG IV (18:25)
[2025-03-01] MEDS: IPRATROPIUM/ALBUTEROL 3 ML NEB 9 ML IH (18:25)
[2025-03-01 18:26] LABS: INR 0.91 (0.9-1.1); Prothrombin Time 10.3 seconds (10.1-12.5)
[2025-03-01 18:29] LABS: NT Pro Brain Natriuretic Pep. 139 pg/mL (0-125)
[2025-03-01] MEDS: MAGNESIUM SULFATE IN WATER 2 GM/50 ML PIGGYBACK IV (18:29)
[2025-03-01 18:31] VITALS: BP 126/66; PULSE 79; RESP 17; O2SAT 94
[2025-03-01 18:43] LABS: T4 (Thyroxine) 6.9 ug/dl (5.53-11.0)
--- NOTE | 2025-03-01 18:53 | HMH.EDCP ---
Discharge Plan Disposition Patient Disposition: Home, Self-Care Condition: Good Prescriptions Prescriptions: New amoxicillin-pot clavulanate 875-125 mg tablet 1 tab PO BID 7 Days Qty: 14 0RF azithromycin 500 mg tablet 500 mg PO DAILY 2 Days Qty: 2 0RF Rx Instructions: start on day 2 of therapy prednisone 20 mg tablet 40 mg PO DAILY 4 Days Qty: 8 0RF ipratropium-albuterol 0.5 mg-3 mg(2.5 mg base)/3 mL solution for nebulization 3 ml inhalation Q4H PRN (Reason: wheezing) Qty: 90 0RF No Action carvedilol 12.5 mg tablet 12.5 mg PO BID Patient Comments: TAKE 1 TABLET BY MOUTH TWICE DAILY WITH FOOD venlafaxine 75 mg tablet 75 mg PO DAILY venlafaxine 150 mg capsule,extended release 24hr 150 mg PO DAILY pantoprazole 40 mg tablet,delayed release (DR/EC) 40 mg PO DAILY levothyroxine 125 mcg tablet 125 mcg PO DAILY Patient Comments: TAKE 1 TABLET BY MOUTH EVERY DAY BEFORE BREAKFAST buspirone 7.5 mg tablet 7.5 mg PO BID felodipine 10 mg tablet extended release 24 hr 10 mg PO DAILY Patient Comments: TAKE 1 TABLET BY MOUTH EVERY DAY montelukast 10 mg tablet 10 mg PO DAILY Patient Comments: TAKE 1 TABLET BY MOUTH EVERY DAY AT BEDTIME albuterol sulfate 90 mcg/actuation HFA aerosol inhaler 2 puff inhalation Q4-6H PRN (Reason: copd) Patient Comments: INHALE 2 PUFFS BY MOUTH EVERY 4 TO 6 HOURS NEEDED losartan 100 mg tablet 100 mg PO DAILY Patient Comments: TAKE 1 TABLET BY MOUTH EVERY DAY AT BEDTIME metformin 500 mg tablet extended release 24 hr 1,000 mg PO DAILY Patient Comments: TAKE 2 TABLETS BY MOUTH TWICE DAILY insulin lispro [Humalog KwikPen Insulin] 100 unit/mL insulin pen 16 unit SQ TID rosuvastatin 20 mg tablet 20 mg PO DAILY insulin glargine [Basaglar KwikPen U-100 Insulin] 100 unit/mL (3 mL) insulin pen 40 unit SQ HS dapagliflozin propanediol [Farxiga] 5 mg tablet 5 mg PO DAILY Patient Comments: TAKE 1 TABLET BY MOUTH DAILY ferrous sulfate [FeroSul] 325 mg (65 mg iron) tablet 325 mg PO DAILY fluticasone propionate 50 mcg/actuation spray,suspension intranasal Patient Comments: SHAKE LIQUID AND USE 1 SPRAY IN EACH NOSTRIL EVERY DAY DIRECTED atorvastatin [Lipitor] 80 mg tablet 80 mg PO DAILY Qty: 90 3RF ipratropium-albuterol 0.5 mg-3 mg(2.5 mg base)/3 mL solution for nebulization 3 ml inhalation Q4-6H PRN roflumilast 500 mcg tablet 500 mcg PO DAILY azelastine 137 mcg (0.1 %) spray,non-aerosol 2 spray intranasal HS 90 Days Qty: 30 2RF Rx Instructions: administer into each nostril Trelegy Ellipta 200-62.5-25 mcg blister with device 1 inh inhalation DAILY 90 Days Qty: 90 2RF aspirin 81 mg Tablet 81 mg PO DAILY Referrals Follow up/Referrals: Trent Guaman MD [Primary Care Provider] - See instructions Hi Foss MD [Physician] - See instructions Activity Restrictions/Add. Instructions Additional Instructions/Restrictions: You were evaluated in the emergency department today. 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 Please wear supplemental oxygen at home as needed to maintain O2 saturation greater than 90% while awake. I recommend 2 to 3 L. 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 Return to the emergency department right away for new or worsening symptoms. Clinical Impressions Clinical Impression: Asthma exacerbation, Acute hypoxic respiratory failure, Low TSH level, DARIUS (acute kidney injury) Instructions Patient Instructions: DI for Asthma -- Adult, DI for Chronic Obstructive Pulmonary Disease Print Language Print Language: Lao Discharge ED Provider: Yamini Mcbride HPI General Chief Complaint: Shortness of Breath/Dyspnea Stated Complaint: SOA, Time Seen by Provider: 03/01/25 18:08 Mode of Arrival: Ambulatory Source of Information: Patient and Spouse Description of Symptoms (Recalled from ER Triage Doc. by RN): Pt presents for evaluation of shorntess of breath that started 2 days ago. Pt states his oxygen level at home was in the 70s this morning. PT is on 3L of home O2 and is noted to be 93-94% History of Present Illness HPI narrative: This patient is a 74-year-old male with a history of sarcoidosis, interstitial lung disease, MAGED on home O2 only at night, hypertension, hyperlipidemia, obesity, and diabetes presenting to the emergency department for evaluation with concern for shortness of breath. He notes this been progressively worsening over the last 2 weeks. It got acutely worse since yesterday. He noticed his oxygen level at home was in the 70s this morning. He does not currently wear oxygen in the daytime. He notes cough with white sputum production. No chest pain, abdominal pain, nausea, vomiting or changes bowel movements, or other concerns. He notes this feels similar to prior asthma flares Related Data Home Medications ?Medication ?Instructions ?Recorded ?Confirmed albuterol sulfate 90 mcg/actuation 2 puff inhalation Q4-6H PRN copd 02/02/24 12/26/24 aerosol inhaler buspirone 7.5 mg tablet 7.5 mg PO BID 02/02/24 12/26/24 carvedilol 12.5 mg tablet 12.5 mg PO BID 02/02/24 12/26/24 felodipine 10 mg tablet,extended 10 mg PO DAILY 02/02/24 12/26/24 release 24 hr insulin glargine 100 unit/mL (3 40 unit SQ HS 02/02/24 12/26/24 mL) subcutaneous pen (Basaglar KwikPen U-100 Insulin) insulin lispro 100 unit/mL 16 unit SQ TID 02/02/24 12/26/24 subcutaneous pen (Humalog KwikPen (U-100) Insulin) levothyroxine 125 mcg tablet 125 mcg PO DAILY 02/02/24 12/26/24 losartan 100 mg tablet 100 mg PO DAILY 02/02/24 12/26/24 metformin 500 mg tablet,extended 1,000 mg PO DAILY 02/02/24 12/26/24 release 24 hr montelukast 10 mg tablet 10 mg PO DAILY 02/02/24 12/26/24 pantoprazole 40 mg tablet,delayed 40 mg PO DAILY 02/02/24 12/26/24 release rosuvastatin 20 mg tablet 20 mg PO DAILY 02/02/24 12/26/24 venlafaxine 150 mg 150 mg PO DAILY 02/02/24 12/26/24 capsule,extended release 24 hr venlafaxine 75 mg tablet 75 mg PO DAILY 02/02/24 12/26/24 aspirin 81 mg tablet 81 mg PO DAILY 03/07/24 12/26/24 dapagliflozin propanediol 5 mg 5 mg PO DAILY 04/11/24 12/26/24 tablet (Farxiga) ipratropium 0.5 mg-albuterol 3 mg 3 ml inhalation Q4-6H PRN 07/11/24 12/26/24 (2.5 mg base)/3 mL nebulization soln ferrous sulfate 325 mg (65 mg 325 mg PO DAILY 08/24/24 12/26/24 iron) tablet (FeroSul) fluticasone propionate 50 intranasal 08/24/24 12/26/24 mcg/actuation nasal spray,suspension roflumilast 500 mcg tablet 500 mcg PO DAILY 10/25/24 12/26/24 Previous Rx's ?Medication ?Instructions ?Recorded atorvastatin 80 mg tablet (Lipitor) 80 mg PO DAILY #90 tabs 08/24/24 fluticasone fur. 200 mcg-umeclid 1 inh inhalation DAILY 90 days #90 09/06/24 62.5 mcg-vilant 25 mcg ea inhalat.powder (Trelegy Ellipta) azelastine 137 mcg (0.1 %) nasal 2 spray intranasal HS 90 days #30 10/25/24 spray mL amoxicillin 875 mg-potassium 1 tab PO BID 7 days #14 tabs 03/01/25 clavulanate 125 mg tablet azithromycin 500 mg tablet 500 mg PO DAILY 2 days #2 tabs 03/01/25 ipratropium 0.5 mg-albuterol 3 mg 3 ml inhalation Q4H PRN wheezing 03/01/25 (2.5 mg base)/3 mL nebulization #90 mL soln prednisone 20 mg tablet 40 mg (2 x 20 mg) PO DAILY 4 days 03/01/25 #8 tabs Allergies Allergy/AdvReac Type Severity Reaction Status Date / Time levofloxacin (From Levaquin) Allergy Hives Verified 12/26/24 14:05 [facility] Disclaimer: The information contained in this section may have been updated after the patient was seen, as this information can be updated by other users. Medical History Lymph node sarcoidosis Dyspnea on exertion MAGED (obstructive sleep apnea) History of sarcoidosis Asthma exacerbation Lung nodule Fibrosis of lung ILD (interstitial lung disease) Epigastric pain CAD in jack[place] artery Atypical angina Abnormal echocardiogram Abnormal nuclear cardiac imaging test Syncope Oxygen dependent Stenosis of carotid artery Thoracic aortic aneurysm DM2 (diabetes mellitus, type 2) Hyperlipidemia Hypertension Dizziness SOB (shortness of breath) on exertion Aneurysm COPD with asthma Sarcoid Surgical History S/P cardiac cath Family History Other Diabetes Hypertension Lung cancer Pancreatic cancer Vaginal cancer Social History Smoking Status: Never smoker alcohol intake: current alcohol intake frequency: a few times a month current occupational status: retired Travel in the last 8 weeks?: None Have you lived/traveled outside US in past 30 days?: No Contact w/someone who lives/traveled outside US past 30 days?: No Exposure to someone with infectious disease in past 14 days?: No Do you have a fever (greater than 100.4 F or 38 C)?: No Have you tested positive for COVID-19?: No Exposed to someone with COVID-19 in past 14 days?: No Do you have a sore throat?: No Do you have a cough?: No Do you have any weakness?: No Do you have any diarrhea?: No Are you experiencing any unusual bleeding?: No Do you have any muscle aches/pain?: Yes Do you have any abdominal pain?: No Are you experiencing loss of taste or smell?: No Other Medical History Have you received the Pneumonia Vaccine: Yes ROS Obtained: Yes All systems reviewed & no additional complaints except as documented Physical Exam General General appearance: alert and obese Comment: Ill-appearing Head Head exam: atraumatic and normocephalic Eye Eye exam: Present normal appearance, PERRL and EOMI ENT ENT exam: Present normal exam, normal oropharynx, mucous membranes moist and normal external ear exam Neck Neck exam: Present normal inspection, full ROM and trachea midline; Absent tenderness Chest Chest inspection: Present normal inspection and symmetric chest wall rise; Absent tenderness Respiratory Respiratory exam: Present respiratory distress, wheezes, accessory muscle use and prolonged expiratory phase; Absent stridor Cardiovascular Cardiovascular exam: Present regular rate and normal rhythm Abdominal Exam Abdominal exam: Present soft; Absent distention, tenderness or guarding Extremities Exam Extremities exam: Present normal inspection, full ROM and normal capillary refill; Absent tenderness or edema Back Exam Back exam: Present normal inspection and full ROM; Absent tenderness Neurological Exam Neurological exam: Present alert, oriented X3, CN II-XII intact and normal gait; Absent motor sensory deficit Psychiatric Psychiatric exam: Present normal affect and normal mood Skin Skin exam: Present warm and dry HEART Score HEART Score HEART Score assessment performed?: Yes History (anamnesis): Slightly suspicious ECG: Normal Age: >65 years Risk factors: 3 or more risk factors Troponin: </= normal limit HEART Score: 4 Critical Care Critical Care Time Critical Care Time: Yes Attestation: On 03/01/25, the high probability of a clinically significant, sudden or life threatening deterioration of the following system(s) required my full and direct attention, intervention and personal management. The time I documented below is in addition to time spent performing reported procedures but includes the following listed in this critical care notation. Total Time Total Critical Care Time: 45 Medical Decision Making Atif Inquiry Pt receiving controlled substance: No Vital Signs Vital Signs: 03/01/25 17:45 03/01/25 18:31 03/01/25 20:40 Temperature 97.8 F 98 F Temperature Source Temporal Artery Scan Pulse Rate 79 85 Pulse Rate [Right] 88 Respiratory Rate 18 17 18 Blood Pressure 126/66 134/69 Blood Pressure [Right Arm] 109/56 L Blood Pressure Mean [Right Arm] 73 Blood Pressure Source [Right Arm] Automatic Cuff Blood Pressure Position Sitting Blood Pressure Position [Right Arm] Sitting 02 Sat by Pulse Oximetry 94 L 94 L Oxygen Delivery Method Nasal Cannula Nasal Cannula Nasal Cannula Oxygen Flow Rate (LPM) 3 2 Lab Data Labs: Lab Results 03/01/25 17:56: WBC 13.1 H, RBC 4.68, Hgb 12.0 L, Hct 38.0 L, MCV 81.2, MCH 25.6 L, MCHC 31.6 L, RDW 14.7, Plt Count 338, MPV 11.6 H, Neut % (Auto) 56.2, Lymph % (Auto) 22.7, Metcalfe % (Auto) 8.8, Eos % (Auto) 10.3, Baso % (Auto) 1.5, Neut # (Auto) 7.3, Lymph # (Auto) 3.0, Metcalfe # (Auto) 1.2 H, Eos # (Auto) 1.3 H, Baso # (Auto) 0.2, PT 10.3, INR 0.91, D-Dimer 0.66 H, Sodium 137, Potassium 4.2, Chloride 106, Carbon Dioxide 19 L, Anion Gap 16.2 H, BUN 24 H, Creatinine 1.40 H, Estimated Creat Clear 72, Estimated GFR 50 L, Est GFR ( Amer) 60, Glucose 163 H, Lactate 3.8 H, Calcium 8.7, Magnesium 1.7, Total Bilirubin 0.1 L, AST 22, ALT 15, Alkaline Phosphatase 82, Troponin I < 0.01, NT-Pro-B Natriuret Pep 139 H, Total Protein 6.9, Albumin 4.1, Globulin 2.8, Albumin/Globulin Ratio 1.5, TSH 0.24 L, Thyroxine (T4) 6.9 03/01/25 18:00: VBG pH 7.34, VBG pCO2 36.2, VBG pO2 87.4 H, VBG HCO3 19.0 L, VBG Total CO2 20.1 L, VBG O2 Saturation 95.9 H, VBG Base Excess -6.9 L, VBG Lactic Acid 4.6 H 03/01/25 18:07: SARS-CoV-2 (PCR) Not detected, Influenza A Untype (PCR) Not detected, Influenza Type B (PCR) Not detected 03/01/25 17:56 03/01/25 17:56 Response Orders (Tests/Meds): ED MEDICATIONS Discontinued Medications Generic Name Dose Route Start Last Admin Trade Name Freq PRN Reason Stop Dose Admin Albuterol/Ipratropium 9 ml 03/01/25 18:17 03/01/25 18:25 Ipratropium/Albuterol 3 Ml Neb IH 03/01/25 18:18 9 ml ONCE ONE Administration Amoxicillin/Clavulanate Potassium 1 each 03/01/25 20:23 03/01/25 20:32 Amoxicillin/Clavulanate Potassium 875/125mg Tablet PO 03/01/25 20:24 1 each ONCE ONE Administration Azithromycin 500 mg 03/01/25 20:23 03/01/25 20:32 Azithromycin 250mg Tablet PO 03/01/25 20:24 500 mg ONCE ONE Administration Magnesium Sulfate 2 gm in 50 mls @ 50 mls/hr 03/01/25 18:17 03/01/25 18:29 Magnesium Sulfate 2gm/50ml Premix IV 03/01/25 19:16 50 mls/hr ONCE ONE Administration Lactated Ringer's 1,000 mls @ 999 mls/hr 03/01/25 18:59 03/01/25 19:10 Lactated Ringer's 1000 Ml Bag IV 03/01/25 19:59 999 mls/hr .Q1H1M ONE Administration Methylprednisolone Sodium Succinate 125 mg 03/01/25 18:17 03/01/25 18:25 Methylprednisolone Sod Succ 125mg Vial IV 03/01/25 18:18 125 mg ONCE ONE Administration ORDERS Category Date Time Status CXR --portable [XR chest portable] Stat Exams 03/01/25 18:14 Completed Complete Blood Count Auto Diff Stat Lab 03/01/25 17:56 Completed Comprehensive Metabolic Panel Stat Lab 03/01/25 17:56 Completed D-Dimer Stat Lab 03/01/25 17:56 Completed Lactic Acid Stat Lab 03/01/25 17:56 Completed Magnesium Stat Lab 03/01/25 17:56 Completed NT Pro Brain Natriuretic Pep. Stat Lab 03/01/25 17:56 Completed PT INR [Prothrombin Time INR] Stat Lab 03/01/25 17:56 Completed Rapid PCR Covid and Flu A/B Stat Lab 03/01/25 18:07 Completed T4 (Thyroxine) Stat Lab 03/01/25 17:56 Completed TSH [Thyroid Stimulating Hormone] Stat Lab 03/01/25 17:56 Completed Troponin I Stat Lab 03/01/25 17:56 Completed Blood Culture Stat Micro 03/01/25 18:59 Received VBG [Venous Blood Gas] Stat RT 03/01/25 18:00 Completed ECG Data Tracing #1: Attestation: I reviewed this ECG and interpreted as documented below: ECG Narrative: Normal sinus rhythm with a ventricular of [address] changes concerning for STEMI. Normal intervals ECG initial impression date: 03/01/25 ECG initial impression time: 18:05 MDM Narrative Medical Decision Narrative: In summary, this patient is a 74-year-old male presenting to the Emergency Department for evaluation of shortness of breath. Differential diagnoses considered include but are not limited to asthma exacerbation, respiratory failure, pneumonia, viral syndrome, PE, ACS, CHF. Ruling out the most morbid conditions drove assessment. It should be noted patient's history includes asthma, interstitial lung disease, obesity, hypertension, hyperlipidemia, diabetes which may or may not be at goal therapy. This complicates all aspects of care by increasing patient's risk for morbidity. I reviewed patient's past medical records and noted prior pulmonary evaluations in cardiology evaluations for maintenance of health of CAD as well as of asthma. On exam, the patient is in mild respiratory distress with tachypnea, wheezing, accessory muscle use and prolonged expiratory phase. Heart sounds are normal, vitals are reassuring cardiac telemetry with exception of oxygen. He is requiring 3 L nasal cannula to maintain an O2 saturation of 93%. Abdominal exam is benign. Workup included CBC, CMP, troponin, D-dimer, BNP, viral swab, chest x-ray, VBG, EKG. He was given DuoNebs x 3 as well as IV methylprednisolone, IV magnesium for presumed severe asthma exacerbation.. I independently interpreted chest x-ray prior to the radiologist read and noted no large focal consolidation concerning for pneumonia. Please see their read for final interpretation. Labs were obtained that demonstrated mild leukocytosis, mildly elevated lactic acid. Patient is afebrile and nontoxic, so this could be stress response in the setting of hypoxia but sepsis considered. Blood cultures were sent and are pending. D-dimer is negative per years criteria, no indiciation for further PE workup. DARIUS with a creatinine of 1.4 with elevated BUN, anion gap, low CO2 likely consistent with dehydration. He was given a bolus of IV fluids but was not given a full sepsis bolus given concern of volume overload could be detrimental to him in the setting of respiratory failure. On reassessment, patient had great improvement after administration of DuoNebs, magnesium, steroids. I tried to wean him from O2, but he dropped to 89% so he was still requiring 2 L nasal cannula. I recommended admission for IV antibiotics, monitoring, respiratory support but he elects to go home stating that he has oxygen at home, nebulizer machine, and will take antibiotics. He was given Augmentin and azithromycin orally and I also refilled his prescription for albuterol nebulizer treatments. I also provided him with a prescription for steroids in the setting of asthma exacerbation causing acute respiratory failure. At this time, patient was deemed to be appropriate for patient directed discharge. He was given very strict return precautions should he change his mind or should he start feeling worse
[2025-03-01 18:56] LABS: Thyroid Stimulating Hormone 0.24 uIU/mL (0.465-4.68)
[2025-03-01 19:00] LABS: Troponin I < 0.01 ng/ml (0.00-0.034)
[2025-03-01] MEDS: LACTATED RINGERS 1000ML 1,000 ML 999 ML IV (19:10)
[2025-03-01 19:12] LABS: D-Dimer 0.66 ug/mL (0.0-0.5)
[2025-03-01] MEDS: AMOXICILLIN/CLAVULANATE POTASSIUM 875/125MG TABLET 1 EACH PO (20:32)
[2025-03-01] MEDS: AZITHROMYCIN 250MG TABLET 500 MG PO (20:32)
[2025-03-01 20:40] VITALS: BP 134/69; PULSE 85; RESP 18; TEMP 36.6; O2SAT 94
== END 2025-03-01 20:41 | disposition home or self-care (01) ==
PROVIDERS: Physician Assistant; Emergency Provider Emergency Medicine; PCP Emergency Medicine
DX: J96.01 Acute respiratory failure with hypoxia (principal); J45.901 Unspecified asthma with (acute) exacerbation; R74.02 Elevation of levels of lactic acid dehydrogenase [LDH]; R79.89 Other specified abnormal findings of blood chemistry; N17.9 Acute kidney failure, unspecified
CPT/HCPCS: 71045; 80053; 82803; 83605; 83735; 83880; 84436; 84443; 84484; 85025; 85378; 85610; 87040; 87636; 93005; 96361; 96365; 96375; 99285; J2919; J3475; J7120

== ENCOUNTER 2025-07-18 07:58 | Outpatient (CLI) | payer MEDICARE, OTHER, SELFPAY ==
--- OUTSIDE RECORDS SUMMARY | 2025-05-22 09:34 | XMS_ITS ---
Author Organization [facility] Address [address] [facility] [address] [place] [address] Phone Care Team Providers Care Industrial Health And Safety Professor Name Role Phone Carlos NAYLOR, Lobo Holman [phone] [ ] Conditions or Problems No information available. Medications No information available. Medications Administered No information available. Allergies, Adverse Reactions, Alerts No information available. 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 Plan of Care Type Date Detail Pending order Continue IV anti biotics Pending order Weekly Labs (Con tinue) Pending order Weekly PICC Line Care Procedures Code Procedure Name Date Entry Date CPT-ca Continue IV antibiotics 2024 CPT-cwl Weekly Labs (Continue) 05/22 CPT-wpc Weekly PICC Line Care 8 Vital Signs Date Name Value Unit Description BMI (Body Mass Index) 35.72 kg/m2 Bod y Mass Index (Ratio) Body Temperature 97.9 [degF] temperat ure E&M BP Diastolic 92 mm[Hg] blood pressu re, diastolic BP Systolic 144 mm[Hg] blood pressur e, systolic Heart Rate 72 /min pulse rate Height 70 [in_us] height E&M Respiratory Rate 16 /min respirat ory rate E&M Weight Measured 249.0 [lb_av] weight E& M Weight Measured 249.0 [lb_av] weight E& M Immunizations No information available. Advance Directives No information available.
--- OUTSIDE RECORDS SUMMARY | 2025-05-29 09:33 | XMS_ITS ---
Author Organization [facility] Address [address] [place] [address] Phone Care Team Providers Care Frozen Meat Cutter Name Role Phone Carlos NAYLOR, Lobo Holman [ ] Conditions or Problems No information available. Medications Medication Instructions Start Date Stop Date Generic Name NDC Provider FELODIPINE ER 10 MG [id number] felodipine [id number] Barbara Hornback Medications Administered No information available. Allergies, Adverse Reactions, Alerts No information available. 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 Plan of Care Type Date Detail Pending order Continue IV anti biotics Pending order Continue oral an tibiotics Pending order Weekly Labs (Con tinue) Pending order Weekly PICC Line Care Procedures Code Procedure Name Date Entry Date G2211 Complex E&M visit add-on (G2211) CPT-ca Continue IV antibiotics 2024 CPT-Cooral Continue oral antibiotics 20 11/06/12 CPT-cwl Weekly Labs (Continue) 05/29 CPT-wpc Weekly PICC Line Care 05/29 Vital Signs Date Name Value Unit Description BMI (Body Mass Index) 35.72 kg/m2 Bod y Mass Index (Ratio) Body Temperature 97.4 [degF] temperat ure E&M BP Diastolic 92 mm[Hg] blood pressu re, diastolic BP Systolic 146 mm[Hg] blood pressur e, systolic Heart Rate 72 /min pulse rate Height 70 [in_us] height E&M Respiratory Rate 16 /min respirat ory rate E&M Weight Measured 249 [lb_av] weight E& M Weight Measured 249 [lb_av] weight E& M Immunizations No information available. Advance Directives No information available.
--- OUTSIDE RECORDS SUMMARY | 2025-06-05 09:28 | XMS_ITS ---
Author Organization [facility] Address [address] [place] [address] Phone Care Team Providers Care Tour Agent Name Role Phone Carlos NAYLOR, Lobo Holman [ ] Conditions or Problems No information available. Medications No information available. Medications Administered No information available. Allergies, Adverse Reactions, Alerts No information available. 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 MEDS REVIEW Done Documenta tion of current medications (procedure) Plan of Care Type Date Detail Pending order Continue IV anti biotics Pending order Weekly Labs (Con tinue) Pending order Weekly PICC Line Care Procedures Code Procedure Name Date Entry Date G2211 Complex E&M visit add-on (G2211) CPT-ca Continue IV antibiotics 2024 CPT-cwl Weekly Labs (Continue) 06/05 CPT-wpc Weekly PICC Line Care 06/05 Vital Signs Date Name Value Unit Description BMI (Body Mass Index) 35.72 kg/m2 Bod y Mass Index (Ratio) Body Temperature 97.3 [degF] temperat ure E&M BP Diastolic 78 mm[Hg] blood pressu re, diastolic BP Systolic 146 mm[Hg] blood pressur e, systolic Heart Rate 78 /min pulse rate Height 70 [in_us] height E&M Respiratory Rate 16 /min respirat ory rate E&M Weight Measured 249 [lb_av] weight E& M Weight Measured 249 [lb_av] weight E& M Immunizations No information available. Advance Directives No information available.
--- OUTSIDE RECORDS SUMMARY | 2025-06-12 09:42 | XMS_ITS ---
Author Organization [facility] Address [address] [place] [address] Phone Care Team Providers Care Powerhouse Oiler Name Role Phone Carlos NAYLOR, Lobo Quezada Unavailable [phone] [ ] Conditions or Problems No information available. Medications Medication Instructions Start Date Stop Date Generic Name NDC Provider MINOCYCLINE HCL 100 MG CAPS Take 1 capsule by mouth twice a day 9 minocycline [id number] Lobo Gonzalez MD Medications Administered No information available. Allergies, Adverse Reactions, Alerts No information available. 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 MEDS REVIEW Done Documenta tion of current medications (procedure) Plan of Care Type Date Detail Pending order PICC Removal Pending order Discontinue IV a ntibiotics Pending order Continue oral an tibiotics Procedures Code Procedure Name Date Entry Date G2211 Complex E&M visit add-on (G2211) Vital Signs Date Name Value Unit Description BMI (Body Mass Index) 36.04 kg/m2 Bod y Mass Index (Ratio) Body Temperature 97.4 [degF] temperat ure E&M BP Diastolic 72 mm[Hg] blood pressu re, diastolic BP Systolic 138 mm[Hg] blood pressur e, systolic Heart Rate 72 /min pulse rate Height 70 [in_us] height E&M Respiratory Rate 16 /min respirat ory rate E&M Weight Measured 251.2 [lb_av] weight E& M Weight Measured 251.2 [lb_av] weight E& M Immunizations No information available. Advance Directives No information available.
--- OUTSIDE RECORDS SUMMARY | 2025-06-21 15:45 | XMS_ITS | Encounter Summary ---
Author Organization [facility] Address [address] [place] [address] Care Team Providers Care Raiser Helper Name Role Phone Trent Guaman MD Primary Care Provider [phone] Reason for Visit * Reason Comments Diabetes Encounter Details Date Type Department Care Team ([facility] st Contact Info) Description 06/21/2025 3:45 PM EDT Office Visit [facility] ENDOCRINOLOGY [facility] [address] Lee Palacios MD [address] [place] [address] Type 2 diabetes mellitus with hyperglycemia, unspecified whether long distance billing operator insulin use (Primary Dx) Social History Tobacco Use Types Packs/Day Years Used Date Smoking Tobacco: Never Passive Smoke Exposure: Never Smokeless Tobacco: Current Chew Alcohol Use Standard Drinks/Week Comments Yes 0 (1 standard drink = 0.6 oz pur e alcohol) social AUDIT-C Answer Date Recorded Frequency of Alcohol Consumption Never 03/27/2019 Average Number of Drinks Not on file 019 Frequency of Binge Drinking Not on file 03/18 Sex and Gender Information Value Date Recorded Sex Assigned at Not on file Legal Sex Male 10:22 AM EDT Gender Identity Not on file Sexual Orientation Not on file Occupation Industry Job Start Date Job End Date RETIRED Not on file Not on file Not on file documented as of this encounter Last Filed Vital Signs Vital Sign Reading Time Taken Comments Blood Pressure 138/76 06/21/2025 3:51 PM EDT Pulse 77 06/21/2025 3:51 PM EDT Temperature - - Respiratory Rate - - Oxygen Saturation 98% 06/21/2025 3:51 PM EDT Inhaled Oxygen Concentration - - Weight 114 kg (252 lb) 06/21/2025 3:51 PM EDT Height 177.8 cm (5' 10 ) 06/21/2025 3:51 PM EDT Body Mass Index 36.16 06/21/2025 3:51 PM EDT documented in this encounter Progress Notes * Lee Palacios MD - 06/21/2025 4:27 PM EDTAssociated Problem(s): Type 2 diabetes mellitus with hyperglycemia ASSESSMENT- DESPITE ALL THE HAPPENED, HIS A1C IS GOOD AND HIS BONNIE DATA SHOW HE IS IN RANGE 77 % OF THE TIME. THAT IS JUST FINE. THE PLAN IS WORKING. HE NEEDS TO STICK TO THE PLAN. STABLE. NO CHANGES * Lee Palacios MD - 06/21/2025 3:45 PM EDT Images from the original note were not included. Office Note Date: 06/21/2025 Patient Name: Luke Cummings : 1950 Chief Complaint Patient presents with Diabetes History of Present Illness: Luke Cummings is a 75 y.o. male who presents for Diabetes type 2. Current RX basal insulin, prandial insulin, metformin and sglt2 Bg checks are done: with bonnie 2 + The last 2 weeks of cgm data are reviewed. 0 % are low 77 % are in range 19 % are 180-250 4 % are >250 The glycemic pattern shows: mild post prandial hyperglycemia , estimated A1c of 7 % Last A1c: Hemoglobin A1C Date Value Ref Range Status 06/21/2025 6.8 (A) 4.5 - 5.7 % Final Changes in health since last visit: AT FIRST AFTER HIS LAST VISIT, HE CALLED A LOT ABOUT HYPOGLYCEMIA AND WE ADJUSTED TREATMENT. 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 HE HAD A TOE AMPUTATED. HE WAS TAKEN OFF OF METFORMIN. THEN HE CALLED WITH SEVERE HYPERGLYCEMIA AND WE ADJUSTED INSULIN AGAIN. EVENTUALLY HE WAS ABLE TO RESUME METOFRMIN AND NUMBERS STABILIZED . Subjective Review of Systems: Review of Systems Musculoskeletal: Positive for gait problem. Skin: Positive for wound. The following portions of the patient's history were reviewed and updated as appropriate: allergies, current medications, past family history, past medical history, past social history, past surgicalhistory, and problem list. Objective Visit Vitals BP 138/76 (BP Location: Left arm, Patient Position: Sitting, Cuff Size: Adult) Pulse 77 Ht 177.8 cm (70 ) Wt 114 kg (252 lb) SpO2 98% BMI 36.16 kg/m?? Physical Exam: Physical Exam Constitutional: Appearance: Normal appearance. Neurological: Mental Status: He is alert. Psychiatric: Mood and Affect: Mood normal. Behavior: Behavior normal. Thought Content: Thought content normal. Judgment: Judgment normal. Assessment / Plan Assessment & Plan: Problem List Items Addressed This Visit Type 2 diabetes mellitus with hyperglycemia - Primary Current Assessment & Plan ASSESSMENT- DESPITE ALL THE HAPPENED, HIS A1C IS GOOD AND HIS BONNIE DATA SHOW HE IS IN RANGE 77 % OF THE TIME. THAT IS JUST FINE. THE PLAN IS WORKING. HE NEEDS TO STICK TO THE PLAN. STABLE. NO CHANGES Relevant Medications Insulin Glargine (BASAGLAR KWIKPEN) 100 UNIT/ML injection pen metFORMIN ER (GLUCOPHAGE-XR) 500 MG 24 hr tablet atorvastatin (LIPITOR) 40 MG tablet losartan (COZAAR) 100 MG tablet Insulin Lispro, 1 Unit Dial, (HUMALOG) 100 UNIT/ML solution pen-injector rosuvastatin (CRESTOR) 20 MG tablet dapagliflozin (Farxiga) 5 MG tablet tablet Glucagon (Baqsimi One Pack) 3 MG/DOSE powder Other Relevant Orders POC Glucose, Blood (Completed) POC Glycosylated Hemoglobin (Hb A1C) (Completed) Electronically signed by : Lee Palacios MD 06/21/2025 documented in this encounter Plan of Treatment Upcoming Encounters Date Type Department Care Team (Late st Contact Info) Description 10/22/2025 3:45 PM EST Office Visit [facility] ENDOCRINOLOGY [address] [phone] Lee Palacios MD [address] [address] documented as of this encounter Procedures Procedure Name Priority Date/Time Associated Diagnosis Comments POCT GLYCOSYLATED HEMOGLOBIN (HGB A1C) Routine 06/21/2025 3:58 PM EDT Type 2 diabetes mellitus with hyperglycemia, unspecified whether long distance billing operator insulin use POCT GLUCOSE, BLD (NON STRIP) Routine 06/21/2025 3:57 PM EDT Type 2 diabetes mellitus with hyperglycemia, unspecified whether long distance billing operator insulin use documented in this encounter Results * (ABNORMAL) POC Glycosylated Hemoglobin (Hb A1C) (06/21/2025 3:58 PM EDT) Hemoglobin A1C 6.8(A) 4.5 - 5.7 % [facility] Lot Number [id number] [facility] Expiration Date 02/06/27 [facility] Blood 06/21/2025 3:58 PM EDT us Lee Palacios MD POINT OF CARE TEST ORD ERABLES Final Result [facility]
[address] [place] [address], * POC Glucose, Blood (06/21/2025 3:57 PM EDT) Glucose 98 70 - 130 mg/dL Lot Number [id number] Expiration Date 10/31/25 Blood 06/21/2025 3:57 PM EDT us Lee Palacios MD POINT OF CARE TEST ORD ERABLES Final Result documented in this encounter Visit Diagnoses Diagnosis Type 2 diabetes mellitus with hyperglycemia, unspecified whether long distance billing operator insulin use- Primary documented in this encounter Care Teams Raiser Helper Relationship Specialty Start Date End Date Trent Guaman MD [address] [place] [id number] PCP - General Emergency Medicine 09/14/23 documented as of this encounter
--- OUTSIDE RECORDS SUMMARY | 2025-06-27 13:29 | XMS_ITS ---
Author Organization [facility] Address [address] [place] [address] Phone Care Team Providers Care Fish Bait Picker Name Role Phone Carlos NAYLOR, Lobo Holman [phone] [ ] Conditions or Problems No information available. Medications Medication Instructions Start Date Stop Date Generic Name NDC Provider FASENRA 30 MG/ML SOSY once a month benralizumab [id number] Taj Little uret Medications Administered No information available. Allergies, Adverse Reactions, Alerts No information available. 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 MEDS REVIEW Done Documenta tion of current medications (procedure) Plan of Care Type Date Detail Pending order CMP Pending order CBC w/o Differen tial Pending order C- reactive prot ein Pending order Sedimentation Ra te (ESR) Procedures Code Procedure Name Date Entry Date G2211 Complex E&M visit add-on (G2211) Vital Signs Date Name Value Unit Description BMI (Body Mass Index) 35.75 kg/m2 Bod y Mass Index (Ratio) Body Temperature 97.5 [degF] temperat ure E&M BP Diastolic 70 mm[Hg] blood pressu re, diastolic BP Systolic 132 mm[Hg] blood pressur e, systolic Heart Rate 97 /min pulse rate Height 70 [in_us] height E&M Respiratory Rate 18 /min respirat ory rate E&M Weight Measured 249.2 [lb_av] weight E& M Weight Measured 249.2 [lb_av] weight E& M Immunizations No information available. Advance Directives No information available.
--- OUTSIDE RECORDS SUMMARY | 2025-06-27 15:05 | XMS_ITS | Encounter Summary ---
Author Organization [facility] Address [address] [place] [address] Care Team Providers Care Veterinary Technology Instructor Name Role Phone Trent Guaman MD Primary Care Provider [phone] Encounter Details Date Type Department Care Team (Late st Contact Info) Description 06/27/2025 3:05 PM EDT Lab [facility] [address] [place] [phone] Chronic osteomyelitis of hindfoot, right; Type II diabetes mellitus with peripheral circulatory disorder Social History Tobacco Use Types Packs/Day Years [...] on file documented as of this encounter Plan of Treatment Upcoming Encounters Date Type Department Care Team (Late st Contact Info) Description 10/22/2025 3:45 PM EST Office Visit [facility] ENDOCRINOLOGY [address] [phone] Lee Palacios MD [address] [address] documented as of this encounter Procedures Procedure Name Priority Date/Time Associated Diagnosis Comments SEDIMENTATION RATE STAT 06/27/2025 2: 26 PM EDT Chronic osteomyelitis of hindfoot, right Type II diabetes mellitus with peripheral circulatory disorder CBC (NO DIFF) STAT 06/27/2025 2:26 PM EDT Chronic osteomyelitis of hindfoot, right Type II diabetes mellitus with peripheral circulatory disorder C-REACTIVE PROTEIN STAT 06/27/2025 2: 26 PM EDT Chronic osteomyelitis of hindfoot, right Type II diabetes mellitus with peripheral circulatory disorder COMPREHENSIVE METABOLIC PANEL STAT 06/27/2025 2:26 PM EDT Chronic osteomyelitis of hindfoot, right Type II diabetes mellitus with peripheral circulatory disorder documented in this encounter Results * C-reactive Protein (06/27/2025 2:26 PM EDT) C-Reactive Protein <0.30 0.00 - 0.50 mg/dL 06/27/2025 3:09 PM EDT [facility] Blood Venipuncture / Unknown 06/27/2025 2:26 PM EDT 06/27/2025 2:26 PM EDT Lobo Gonzalez MD LAB BLOOD ORDERABLES Final Result [facility]
[address] [place] [address], [place] [phone] * Sedimentation Rate (06/27/2025 2:26 PM EDT) Sed Rate 12 0 - 20 mm/hr 06/27/2025 2:48 PM EDT [facility] Blood Venipuncture / Unknown 06/27/2025 2:26 PM EDT 06/27/2025 2:26 PM EDT Lobo Gonzalez MD LAB BLOOD ORDERABLES Final Result [facility]
[address] [place] [address], * (ABNORMAL) CBC (No Diff) (06/27/2025 2:26 PM EDT) WBC 12.18(H) 3.40 - 10.80 10*3/mm3 06/27/2025 2:37 PM EDT [facility] RBC 4.96 4.14 - 5.80 10*6/mm3 06/27/2025 2:37 PM EDT [facility] Hemoglobin 13.3 13.0 - 17.7 g/dL 06/27/2025 2:37 PM EDT [facility] Hematocrit 42.1 37.5 - 51.0 % 06/27/2025 2:37 PM EDT [facility] MCV 84.9 79.0 - 97.0 fL 06/27/2025 2:37 PM EDT [facility] MCH 26.8 26.6 - 33.0 pg 06/27/2025 2:37 PM EDT [facility] MCHC 31.6 31.5 - 35.7 g/dL 06/27/2025 2:37 PM EDT [facility] RDW 16.4(H) 12.3 - 15.4 % 06/27/2025 2:37 PM EDT [facility] RDW-SD 51.2 37.0 - 54.0 fl 06/27/2025 2:37 PM EDT [facility] MPV 11.4 6.0 - 12.0 fL 06/27/2025 2:37 PM EDT [facility] Platelets 292 140 - 450 10*3/mm3 06/27/2025 2:37 PM EDT [facility] Blood Venipuncture / Unknown 06/27/2025 2:26 PM EDT 06/27/2025 2:26 PM EDT Lobo Gonzalez MD LAB BLOOD ORDERABLES Final Result [facility]
[address] [place] [address], * (ABNORMAL) Comprehensive Metabolic Panel (06/27/2025 2:26 PM EDT) Glucose 221(H) 65 - 99 mg/dL 06/27/2025 3:09 PM EDT [facility] BUN 25.8(H) 8.0 - 23.0 mg/dL 06/27/2025 3:09 PM EDT [facility] Creatinine 1.29(H) 0.76 - 1.27 mg/dL 06/27/2025 3:09 PM EDT [facility] Sodium 137 136 - 145 mmol/L 06/27/2025 3:09 PM EDT [facility] Potassium 5.1 3.5 - 5.2 mmol/L 06/27/2025 3:09 PM EDT [facility] Chloride 100 98 - 107 mmol/L 06/27/2025 3:09 PM EDT [facility] CO2 26.0 22.0 - 29.0 mmol/L 06/27/2025 3:09 PM EDT [facility] Calcium 8.8 8.6 - 10.5 mg/dL 06/27/2025 3:09 PM EDT [facility] Total Protein 6.7 6.0 - 8.5 g/dL 06/27/2025 3:09 PM EDT [facility] Albumin 4.2 3.5 - 5.2 g/dL 06/27/2025 3:09 PM EDT [facility] ALT (SGPT) 19 1 - 41 U/L 06/27/2025 3:09 PM EDT [facility] AST (SGOT) 15 1 - 40 U/L 06/27/2025 3:09 PM EDT [facility] Alkaline Phosphatase 82 39 - 117 U/L 06/27/2025 3:09 PM EDT [facility] Total Bilirubin 0.3 0.0 - 1.2 mg/dL 06/27/2025 3:09 PM EDT [facility] Globulin 2.5 gm/dL 06/27/2025 3:09 PM EDT [facility] Comment:Calculated Result A/G Ratio 1.7 g/dL 06/27/2025 3:09 PM EDT [facility] BUN/Creatinine Ratio 20.0 7.0 - 25.0 06/27/2025 3:09 PM EDT [facility] Anion Gap 11.0 5.0 - 15.0 mmol/L 06/27/2025 3:09 PM EDT [facility] eGFR 57.8(L) >60.0 mL/min/1.7 3 06/27/2025 3:09 PM EDT [facility] Blood Venipuncture / Unknown 06/27/2025 2:26 PM EDT 06/27/2025 2:26 PM EDT Narrative [facility] - 06/27/2025 3:09 PM EDT GFR Categories in Chronic Kidney Disease (CKD) GFR Category GFR (mL/min/1.73) Interpretation G1 90 or greater Normal or high (1) G2 60-89 Mild decrease (1) G3a 45-59 Mild to moderate decrease G3b 30-44 Moderate to severe decrease G4 15-29 Severe decrease G5 14 or less Kidney failure (1)In the absence of evidence of kidney disease, neither GFR category G1 or G2 fulfill the criteria for CKD. eGFR calculation 2020 CKD-EPI creatinine equation, which does not include race as a factor us Lobo Gonzalez MD LAB BLOOD ORDERABLES Final Result [facility]
[address] [place] [address], documented in this encounter Visit Diagnoses Diagnosis Chronic osteomyelitis of hindfoot, right Type II diabetes mellitus with peripheral circulatory disorder Type II or unspecified type diabetes mellitus with peripheral circulatory disorders, not stated as uncontrolled documented in this encounter Care Teams Veterinary Technology Instructor Relationship Specialty Start Date End Date Trent Guaman MD [address] [place], [place] [id number] PCP - General Emergency Medicine 09/14/23 documented as of this encounter
--- OUTSIDE RECORDS SUMMARY | 2025-07-11 14:02 | XMS_ITS ---
Author Organization [facility] Address [address] [facility] [address] [place] [address] Phone Care Team Providers Care Service Porter Name Role Phone Carlos NAYLOR, Lobo Quezada Unavailable [phone] [ ] Conditions or Problems No information available. Medications No information available. Medications Administered No information available. Allergies, Adverse Reactions, Alerts No information available. 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 Procedures No information available. Vital Signs Date Name Value Unit Description BMI (Body Mass Index) 36.13 kg/m2 Bod y Mass Index (Ratio) Body Temperature 97.4 [degF] temperat ure E&M BP Diastolic 76 mm[Hg] blood pressu re, diastolic BP Systolic 126 mm[Hg] blood pressur e, systolic Heart Rate 90 /min pulse rate Height 70 [in_us] height E&M Respiratory Rate 18 /min respirat ory rate E&M Weight Measured 251.8 [lb_av] weight E& M Weight Measured 251.8 [lb_av] weight E& M Immunizations No information available. Advance Directives No information available.
--- NOTE | 2025-07-18 08:00 | CT_ITS ---
FINAL REPORT TECHNIQUE: The patient was injected with IV contrast. Axial images were obtained through the chest in a PE protocol. 3-D reconstruction images were also performed. Individualized dose reduction techniques using automated exposure control or adjustment of the MA and/or KV according to patient's size were employed. CLINICAL HISTORY: hx aortic aneurysm COMPARISON: 10/09/2024 FINDINGS: Mediastinal vasculature is adequately opacified. No pulmonary artery filling defects are identified to suggest PE. 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 There is no axillary adenopathy. There is no hilar or mediastinal adenopathy. The heart size is normal. There is no pericardial or pleural effusion. Limited images of the upper abdomen are unremarkable there are chronic changes in the right middle lobe and lingula which are stable.. No suspicious infiltrate or nodule is identified. There is healed fracture deformity of the right posterior ribs. 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 Reviewed, Interpreted and Dictated by Raciel Hess MD Transcribed by Rose De Leon Authenticated and [facility]
--- NOTE | 2025-07-18 08:00 | CT_ITS ---
FINAL REPORT TECHNIQUE: NASCET technique utilized for stenosis evaluation. This study was performed with techniques to keep radiation doses as low as reasonably achievable, (ALARA). Individualized dose reduction techniques using automated exposure control or adjustment of mA and/or kV according to the patient's size were employed. CLINICAL HISTORY: hx TERRANCE/rule out carotid disease FINDINGS: RIGHT CAROTID: There is moderate vascular calcification at the right carotid bifurcation with less than 50% stenosis. LEFT CAROTID: Postoperative changes from prior endarterectomy. No significant stenosis. VERTEBRALS: The right vertebral artery is dominant. The left vertebral artery is diminutive. No significant stenosis is present. IMPRESSION: Less than 50% stenosis of the right common carotid artery. No significant stenosis on the left. Right vertebral artery is dominant. Reviewed, Interpreted and Dictated by Raciel Hess MD Transcribed by Rose De Leon Authenticated and [facility]
--- OUTSIDE RECORDS SUMMARY | 2025-07-18 08:02 | XMS_ITS | Clinical Summary ---
Author Organization [facility] Address [address] [place] [address] Care Team Providers Care Nozzleman Name Role Phone Trent Guaman MD Primary Care Provider Allergies Active Allergy Reactions Criticality Noted Date Comments Levofloxacin Rash High 03/23/2024 Medications Insulin Glargine (BASAGLAR KWIKPEN) 100 UNIT/ML injection pen Inject 40 Units under the skin into the appropriate area as directed Every Night. 02/28/20 19 Active montelukast (SINGULAIR) 10 MG tablet Take 1 tablet by mouth Every Night. 03/11/20 19 Active felodipine (PLENDIL) 10 MG 24 hr tablet Take 1 tablet by mouth Daily. 11/24/19 14 Active levothyroxine (SYNTHROID, LEVOTHROID) 125 MCG tablet Take 1 tablet by mouth Daily. 11/24/19 14 Active TRELEGY ELLIPTA 100-62.5-25 MCG/INH aerosol powder 01/06/20 19 Active aspirin 81 MG EC tablet Take 1 tablet by mouth Daily. Active pantoprazole (PROTONIX) 40 MG EC tablet 06/23/20 19 Active metFORMIN ER (GLUCOPHAGE-XR ) 500 MG 24 hr tablet 2 tablets 2 (Two) Times a Day. 06/07/20 19 Active albuterol sulfate HFA 108 (90 Base) MCG/ACT inhaler Inhale See Admin Instructions. Inhale 2 puffs by mouth every 4 to 6 hours as needed Active atorvastatin (LIPITOR) 40 MG tablet Take 1 tablet by mouth Daily. Active busPIRone (BUSPAR) 7.5 MG tablet Take 1 tablet by mouth. Active ipratropium-al buterol (DUO-NEB) 0.5-2.5 mg/3 ml nebulizer Inhale 3 mL. Acti ve carvedilol (COREG) 12.5 MG tablet Take 1 tablet by mouth 2 (Two) Times a Day With Meals. Active venlafaxine XR (EFFEXOR-XR) 75 MG 24 hr capsule Take 1 capsule by mouth Daily. Active venlafaxine XR (EFFEXOR-XR) 150 MG 24 hr capsule take 1 capsule by mouth every day with food Active losartan (COZAAR) 100 MG tablet Take 1 tablet by mouth Daily. Active Continuous Glucose Sensor (FreeStyle Dustin 2 Sensor) misc 03/22/20 24 Active Insulin Lispro, 1 Unit Dial, (HUMALOG) 100 UNIT/ML solution pen-injector Inject 16 Units under the skin into the appropriate area as directed 3 (Three) Times a Day With Meals. Uses after each meal 02/02/20 24 Active Insulin Pen Needle (Pen [place]) 32G X [address] [facility] Use 1 each 6 (Six) Times a Day. 200 each 3 03/23/20 24 Active rosuvastatin (CRESTOR) 20 MG tablet Take 1 tablet by mouth Daily. Active Glucagon (Baqsimi One Pack) 3 MG/DOSE powder Administer 3 mg into the nostril(s) as directed by provider As Needed (for severe hypoglycemia). 1 each 3 02/09/20 25 Active minocycline (MINOCIN,DYNAC IN) 100 MG capsule Take 1 capsule by mouth Every 12 (Twelve) Hours. 06/13/20 25 Active Farxiga 5 MG tablet tablet TAKE 1 TABLET DAILY 90 tablet 1 07/06/20 25 Active dapagliflozin (Farxiga) 5 MG tablet tablet Take 1 tablet by mouth Daily. 10 tablet 07/24/20 24 025 Discontinued Active Problems Problem Noted Date Diagnosed Date Type 2 diabetes mellitus with hyperglycemia 03/2024 Assessment & Plan (06/21/2025 4:27 PM EDT): ASSESSMENT- DESPITE ALL THE HAPPENED, HIS A1C IS GOOD AND HIS DUSTIN DATA SHOW HE IS IN RANGE 77 % OF THE TIME. THAT IS JUST FINE. THE PLAN IS WORKING. HE NEEDS TO STICK TO THE PLAN. STABLE. NO CHANGES Assessment & Plan (07/24/2024 4:29 PM EDT): Improved. A1c down to 7 I encouraged him that his numbers are more stable than most and inrange a good % of the time. I advised he take more insulin with supper and less at bedtime Assessment & Plan (03/23/2024 4:35 PM EDT): Seen as a new patient today Type 2 diabetes on insulin. Reasonable A1c but very unstable blood sugars as seen on his dustin data. Diet and exercise guidelines were reviewed with the patient. Plan- add sglt2. Side effects were addressed. Over time, we might be able to then reduce insulin Hypertension 09/14/2023 Assessment & Plan (09/14/2023 9:51 AM EST): Hypertension is improving with treatment. Continue current treatment regimen. Dietary sodium restriction. Weight loss. Regular aerobic exercise. Blood pressure will be reassessed at the next regular appointment. MAGED (obstructive sleep apnea) 09/14/2023 Assessment & Plan (09/14/2023 9:54 AM EST): History of MAGED with baseline AHI of 39 currently on PAP therapy. He is doing very well on PAP therapy, he reports he uses his CPAP every night. He uses a fullface mask and does well with that. Airflow is comfortable. He denies excessive daytime sleepiness or fatigue. He did not bring device chip in today so download is unavailable at this time. -Continue PAP therapy at current settings. Hypercholesterolemia 09/14/2023 Assessment & Plan (09/14/2023 9:52 AM EST): Managed by PCP. -Continue Atorvastatin at current dose Preop cardiovascular exam 09/14/2023 Assessment & Plan (09/14/2023 9:56 AM EST): Patient denies chest pain or worsening shortness of breath. Okay to proceed with EGD without further testing. Epigastric pain 07/10/2019 Nausea and vomiting 05/15/2019 Gastric polyps 05/15/2019 Encounters Date Type Department Care Team Description 07/06/[address] [facility] [address] [facility] [address] [place] [address] Lee Palacios MD 06/27/2025 3:05 PM EDT Lab [facility] [address] [place] [id number] Chronic osteomyelitis of hindfoot, right; Type II diabetes mellitus with peripheral circulatory disorder 06/27/2025 Travel 06/21/2025 3:45 PM EDT Office Visit [facility] [address] [place] [address] Lee Palacios MD Type 2 diabetes mellitus with hyperglycemia, unspecified whether jail insulin use (Primary Dx) 06/21/2025 Travel 05/18/[address] [facility] [address] [facility] [address] [place] [address] Lee Palacios MD from Last 3 Months Family History Medical History Relation Name Comments Hypertension Father Lung cancer Father Cancer Mother PANCREATIC Diabetes Mother Hypertension Mother Colon cancer Neg Hx Colon polyps Neg Hx Relation Name Status Comments Brother 1 Alive Brother 2 (Age 3) Father Mother Sister Alive Social History Tobacco Use Types Packs/Day Years Used Date Smoking Tobacco: Never Passive Smoke Exposure: Never Smokeless Tobacco: Current Chew Tobacco Cessation:Ready to Q uit: Not Asked; Counseling Given: Not Answered Alcohol Use Standard Drinks/Week Comments Yes 0 [...] file Not on file Not on file Last Filed Vital Signs Vital Sign Reading Time Taken Comments Blood Pressure 138/76 06/21/2025 3:51 PM EDT Pulse 77 06/21/2025 3:51 PM EDT Temperature 36.3 C (97.3 F) 05/11/2019 2:58 PM EDT Respiratory Rate 24 05/11/2019 2:58 PM EDT Oxygen Saturation 98% 06/21/2025 3:51 PM EDT Inhaled Oxygen Concentration - - Weight 114 kg (252 lb) 06/21/2025 3:51 PM EDT Height 177.8 cm (5' 10 ) 06/21/2025 3:51 PM EDT Body Mass Index 36.16 06/21/2025 3:51 PM EDT Plan of Treatment Upcoming Encounters Date Type Department Care Team (Late st Contact Info) Description 10/22/2025 3:45 PM EST Office Visit [facility] [address] [address] Lee Palacios MD [address] [address] Health Maintenance Due Date Last Done Comments DIABETIC EYE EXAM 1960 DIABETIC FOOT EXAM 1960 URINE MICROALBUMIN-CREATININ E RATIO (uACR) 1960 COLOGUARD 1995 COLON CANCER SCREENING 5 YEA R SIGMOIDOSCOPY 1995 CT COLONOGRAPHY 1995 FECAL OCCULT BLOOD TEST 1995 FIT Testing (1 year) 1995 ZOSTER VACCINE (2 of 3) 08/27/2011 07/02/2011 LIPID PANEL 12/11/2015 12/11/2014 ANNUAL WELLNESS VISIT 03/27/2019 HEPATITIS C SCREENING 03/27/2019 INFLUENZA VACCINE 05/18/2025 08/12/2021, , 07/05/2017 RSV Vaccine - Adults (1 - 1- dose 75+ series) 2025 COVID-19 Vaccine (3 - 2024-2 6 season) 2025 01/31/2021, 12/10/2020 HEMOGLOBIN A1C 12/19/2025 06/21/2025, 01/17, 07/24/2024, Additional history exists TDAP/TD VACCINES (4 - Td or Tdap) 01/28/2029 01/28/2019, 04/28/2011, 12/07/1995 COLONOSCOPY 12/06/2034 12/06/2024 COLORECTAL CANCER SCREENING 12/06/2034 Pneumococcal Vaccine 50+ Completed 03/17/2018, 10/2015 Procedures Procedure Name Priority Date/Time Associated Diagnosis Comments C-REACTIVE PROTEIN STAT 06/27/2025 2: 26 PM EDT Chronic osteomyelitis of hindfoot, right Type II diabetes mellitus with peripheral circulatory disorder SEDIMENTATION RATE STAT 06/27/2025 2: 26 PM EDT Chronic osteomyelitis of hindfoot, right Type II diabetes mellitus with peripheral circulatory disorder CBC (NO DIFF) STAT 06/27/2025 2:26 PM EDT Chronic osteomyelitis of hindfoot, right Type II diabetes mellitus with peripheral circulatory disorder COMPREHENSIVE METABOLIC PANEL STAT 06/27/2025 2:26 PM EDT Chronic osteomyelitis of hindfoot, right Type II diabetes mellitus with peripheral circulatory disorder POCT GLYCOSYLATED HEMOGLOBIN (HGB A1C) Routine 06/21/2025 3:58 PM EDT Type 2 diabetes mellitus with hyperglycemia, unspecified whether jail insulin use POCT GLUCOSE, BLD (NON STRIP) Routine 06/21/2025 3:57 PM EDT Type 2 diabetes mellitus with hyperglycemia, 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
[address] [place] [address], * (ABNORMAL) CBC (No Diff) (06/27/2025 2:26 PM EDT) WBC 12.18(H) 3.40 - 10.80 10*3/mm3 06/27/2025 2:37 PM EDT [facility] RBC 4.96 4.14 - 5.80 10*6/mm3 06/27/2025 2:37 PM EDT [facility] Hemoglobin 13.3 13.0 - 17.7 g/dL 06/27/2025 2:37 PM EDT [facility] Hematocrit 42.1 37.5 - 51.0 % 06/27/2025 2:37 PM EDT [facility] MCV 84.9 79.0 - 97.0 fL 06/27/2025 2:37 PM EDT [facility] MCH 26.8 26.6 - 33.0 pg 06/27/2025 2:37 PM EDT [facility] MCHC 31.6 31.5 - 35.7 g/dL 06/27/2025 2:37 PM EDT [facility] RDW 16.4(H) 12.3 - 15.4 % 06/27/2025 2:37 PM EDT [facility] RDW-SD 51.2 37.0 - 54.0 fl 06/27/2025 2:37 PM EDT [facility] MPV 11.4 6.0 - 12.0 fL 06/27/2025 2:37 PM EDT [facility] Platelets 292 140 - 450 10*3/mm3 06/27/2025 2:37 PM EDT [facility] Blood Venipuncture / Unknown 06/27/2025 2:26 PM EDT 06/27/2025 2:26 PM EDT Lobo Gonzalez MD LAB BLOOD ORDERABLES Final Result [facility]
[address] [place] [address], * C-reactive Protein (06/27/2025 2:26 PM EDT) Pathologist [facility] C-Reactive Protein <0.30 0.00 - 0.50 mg/dL 06/27/2025 3:09 PM EDT [facility] Blood Venipuncture / Unknown 06/27/2025 2:26 PM EDT 06/27/2025 2:26 PM EDT Lobo Gonzalez MD LAB BLOOD ORDERABLES Final Result Performing Organization Address [facility] Co de Phone Number [facility]
[address] [place] [address], * (ABNORMAL) Comprehensive Metabolic Panel (06/27/2025 2:26 PM EDT) Pathologist [facility] Glucose 221(H) 65 - 99 mg/dL 06/27/2025 3:09 PM EDT [facility] BUN 25.8(H) 8.0 - 23.0 mg/dL 06/27/2025 3:09 PM EDT [facility] Creatinine 1.29(H) 0.76 - 1.27 mg/dL 06/27/2025 3:09 PM EDT [facility] Sodium 137 136 - 145 mmol/L 06/27/2025 3:09 PM EDT [facility] Potassium 5.1 3.5 - 5.2 mmol/L 06/27/2025 3:09 PM EDT [facility] Chloride 100 98 - 107 mmol/L 06/27/2025 3:09 PM EDT [facility] CO2 26.0 22.0 - 29.0 mmol/L 06/27/2025 3:09 PM EDT [facility] Calcium 8.8 8.6 - 10.5 mg/dL 06/27/2025 3:09 PM EDT [facility] Total Protein 6.7 6.0 - 8.5 g/dL 06/27/2025 3:09 PM T [facility] Albumin 4.2 3.5 - 5.2 g/dL 06/27/2025 3:09 PM T [facility] ALT (SGPT) 19 1 - 41 U/L 06/27/2025 3:09 PM EDT [facility] AST (SGOT) 15 1 - 40 U/L 06/27/2025 3:09 PM EDT [facility] Alkaline Phosphatase 82 39 - 117 U/L 06/27/2025 3:09 PM T [facility] Total Bilirubin 0.3 0.0 - 1.2 mg/dL 06/27/2025 3:09 PM [facility] Globulin 2.5 gm/dL 06/27/2025 3:09 PM T [facility] Comment:Calculated Result A/G Ratio 1.7 g/dL 06/27/2025 3:09 PM T [facility] BUN/Creatinine Ratio 20.0 7.0 - 25.0 06/27/2025 3:09 PM [facility] Anion Gap 11.0 5.0 - 15.0 mmol/L 06/27/2025 3:09 PM [facility] eGFR 57.8(L) >60.0 mL/min/1.7 3 06/27/2025 3:09 PM T [facility] Blood Venipuncture / Unknown 06/27/2025 2:26 PM EDT 06/27/2025 2:26 PM EDT [facility] - 06/27/2025 3:09 PM EDT GFR [...] does not include race as a factor Lobo Gonzalez MD LAB BLOOD ORDERABLES Final Result [facility]
[address] [place] [address], [place] [phone] * (ABNORMAL) POC Glycosylated Hemoglobin (Hb A1C) (06/21/2025 3:58 PM EDT) [facility] Hemoglobin A1C 6.8(A) 4.5 - 5.7 % [facility] Lot Number [id number] [facility] Expiration Date 02/06/27 [facility] Blood 06/21/2025 3:58 PM EDT Lee Palacios MD POINT OF CARE TEST ORD ERABLES Final Result [facility]
[address] [place] [address], [place] [phone] * POC Glucose, Blood (06/21/2025 3:57 PM EDT) [facility] Glucose 98 70 - 130 mg/dL Lot Number [id number] Expiration Date 10/31/25 Blood 06/21/2025 3:57 PM EDT Lee Palacios MD POINT OF CARE TEST ORD ERABLES Final Result * (ABNORMAL) Lipid panel (12/11/2014 4:31 AM EST) Total Cholesterol 273(H) 0 - 200 mg/dL [facility] Comment: DF by IF @ 12/11/2014 05:29 Cholesterol Reference Ranges: Desirable: less than 200 mg/dL Borderline: 200-239 mg/dL High: greater than 239 mg/dL Triglycerides 323(H) 0 - 150 mg/dL [facility] Comment: DF by IF @ 12/11/2014 05:29 Triglyceride Reference Ranges: Normal less than 150 mg/dL Borderline 150-199 mg/dL High 200-499 mg/dL Very High greater than 499 mg/dL HDL Cholesterol 48 40 - 60 mg/dL [facility] Comment: DF by IF @ 12/11/2014 05:29 HDL Cholesterol Reference Ranges: Low less than 40 mg/dL High greater than 59 mg/dL LDL Cholesterol 166(H) 0 - 130 mg/dL [facility] Comment: US by IF @ 12/11/2014 05:29 LDL Cholesterol Reference Ranges: Optimal less than 100 mg/dL Near Optimal 100-129 mg/dL Borderline 130-159 mg/dL High 160-189 mg/dL Very High greater than 189 mg/dL Blood specimen (specimen) 12/11/2014 4:31 AM EST Narrative [facility] - 12/11/2014 5:29 AM EST Specimen Type: Blood Eunice Jones [employer] LAB BLOOD ORDERABLES Final Result [facility] [address] [place] [address], from Last 3 Months or Most Recently Relevant to Health Maintenance Insurance MEDICARE A & B [employer]ATIONAL [employer] Care Teams Nozzleman Relationship Specialty Start Date End Date Trent Guaman MD [address] [place] [address] PCP - General Emergency Medicine 09/14/23
--- OUTSIDE RECORDS SUMMARY | 2025-07-18 08:02 | XMS_ITS | Clinical Summary ---
Author Organization [facility] Address [address] [place] [address] Phone Care Team Providers Care Manager Summer Name Role Phone Carlos NAYLOR, Lobo Holman [ ] Conditions or Problems Problem Name Problem Code Onset Date Status Entry Date Provider Comment Standard Description Annotate Fall risk 619404361 (SNOMED CT) 05/16 Active 05/16 Alexia Neves At increased risk for falls Obesity, class 1, BMI 30 to <35 07950811 (SNOMED CT) 05/09 Active 05/09 Coby Rashid Coronary arteriosclerosis Acute osteomyelitis , right foot/toe M86.171 (ICD-10-CM ) 05/09 Active 05/09 Coby Rashid Other acute osteomyelitis, right ankle and foot Stenotrophomo surya infection 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.89 (ICD-10-CM ) 05/09 Active 05/09 Coby Rashid Other specified bacterial agents as the cause of diseases classified elsewhere 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, plantar surface, 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) L97.512 (ICD-10-CM ) 05/09 Active 05/09 Coby Rashid Non-pressure chronic ulcer of other part of right foot with fat layer exposed DM Non-pressure chronic ulcer of right foot, plantar surface, limited to breakdown of skin (E11.621) L97.511 (ICD-10-CM ) 05/09 Active 05/09 Coby Rashid Non-pressure chronic ulcer of other part of right foot limited to breakdown of skin Chronic osteomyelitis , right foot/toe M86.671 (ICD-10-CM ) 05/09 Active 05/09 Coby Rashid Other chronic osteomyelitis, right ankle and foot Coronary artery disease (CAD) 04393226 (SNOMED CT) 05/09 Active 05/09 Coby Mike Coronary arteriosclerosis MRSA infection 292632451 (SNOMED CT) 05/09 Active 05/09 Coby Mike Methicillin resistant Staphylococcus aureus infection Benign Essential Hypertension 35938320 (SNOMED CT) 05/09 Active 05/09 Coby Mike Benign hypertension Cellulitis, toe, right 15958582 (SNOMED CT) 05/09 Active 05/09 Coby Mike Cellulitis of toe Cellulitis, foot, right 115652011 (SNOMED CT) 05/09 Active 05/09 Coby Mike Cellulitis of lower limb DM II with diabetic PVD 261806105 (SNOMED CT) 05/09 Active 05/09 Coby Mike Peripheral vascular disease Medications Medication Instructions Start Date Stop Date Generic Name NDC Provider FASENRA 30 MG/ML SOSY once a month benralizumab [id number] Taj Aguilar daptomycin recon soln Cubicin 500mg IV [id number] NA daptomycin recon soln Morena Flores RN MINOCYCLINE HCL 100 MG CAPS Take 1 capsule by mouth twice a day minocycline 11249385400 Lobo Gonzalez MD MINOCYCLINE HCL 100 MG CAPS Take 1 capsule by mouth twice a day minocycline 58574369488 Lobo Gonzalez MD FELODIPINE ER 10 MG [id number] felodipine 65977663919 Barbara Hornback DAPAGLIFLOZIN PROPANEDIOL 5 MG TABS Take 1 tablet by mouth once a day dapagliflozin propanediol 85917339665 Uyen Martin PEG 3350 17 GM/SCOOP POWD Take 17 gram by mouth once a day polyethylene glycol 3350 [id number] Uyen Martin MINOCYCLINE HCL 100 MG CAPS Take 1 capsule by mouth every twelve hours minocycline 98328333555 [facility] KP FERROUS GLUCONATE 324 (37.5 Fe) MG TABS Take 1 tablet by mouth every morning ferrous gluconate 14041440817 [facility] ATORVASTATIN CALCIUM 40 MG TABS atorvastatin 41809214806 [facility] ROSUVASTATIN CALCIUM 20 MG TABS rosuvastatin 16575185836 [facility] METFORMIN HCL ER (OSM) 500 MG [id number] Two tablets twice a day metformin (fortamet) 10752699265 [facility] ASPIRIN 81 MG TBEC aspirin 48232445787 [facility] LOSARTAN POTASSIUM 100 MG TABS every night at bedtime losartan 53200767804 [facility] LEVOTHYROXINE SODIUM 125 MCG TABS Take 1 tablet by mouth once a day levothyroxine 26018051334 Alexia Neves KP FERROUS GLUCONATE 324 (37.5 Fe) MG TABS Take 1 tablet by mouth every morning ferrous gluconate 81434211114 Alexia Neves CARVEDILOL 12.5 MG TABS Take 1 tablet by mouth twice a day carvedilol 04616841809 Alexia Neves INSULIN LISPRO (1 UNIT DIAL) 100 UNIT/ML SOPN Inject 16 unit subcutaneously three times a day insulin lispro 88747692337 Alexia Neves MONTELUKAST SODIUM 10 MG TABS Take 1 tablet by mouth every night montelukast 80447279542 Alexia Neves VENLAFAXINE HCL 75 MG TABS Take 1 tablet by mouth once a day venlafaxine 16436212172 Alexia Neves ALBUTEROL SULFATE HFA 108 (90 Base) MCG/ACT AERS Inhale 1 puff by mouth every six hours as needed albuterol sulfate 50830578714 Alexia Neves DAPAGLIFLOZIN PROPANEDIOL 5 MG TABS Take 1 tablet by mouth once a day dapagliflozin propanediol 95928347153 Alexia Neves TRELEGY ELLIPTA 200-62.5-25 MCG/ACT AEPB Inhale 1 puff by mouth once a day fluticasone-ume clidin-vilanter 57273128383 Alexia Neves IPRATROPIUM-ALBU TEROL 0.5-2.5 (3) MG/3ML SOLN Inhale 3 ml every six hours as needed ipratropium-alb uterol 61872186852 Alexia Neves PANTOPRAZOLE SODIUM 40 MG TBEC Take 1 tablet by mouth twice a day pantoprazole 62016127522 [facility] Neves MINOCYCLINE HCL 100 MG CAPS Take 1 capsule by mouth every twelve hours minocycline 87071707867 [facility] BUSPIRONE HCL 7.5 MG TABS Take 1 tablet by mouth twice a day buspirone 24821744946 [facility] Neves PEG 3350 17 GM/SCOOP POWD Take 17 gram by mouth once a day polyethylene glycol 3350 74661142738 [facility] OXYCODONE HCL 5 MG TABS Take 1 tablet by mouth every four hours as needed oxycodone 48868933463 [facility] Neves VENLAFAXINE HCL ER 150 MG [id number] Take 1 capsule by mouth once a day venlafaxine 63644388572 [facility] cholecalciferol, vitamin D3, 25 mcg (1,000 unit) capsule Take 1 capsule by mouth once a day 1,000 unit [facility] Neves insulin glargine (Basaglar KwikPen U-100 Insulin) 100 unit/m Inject 40 unit subcutaneously every night Basaglar KwikPen U-100 Insulin [facility] Neves VENLAFAXINE HCL ER 150 MG [id number] Take 1 capsule (150 mg total) by mouth daily Take with 75mg tablet for total dose of 225mg . venlafaxine 01049974286 [facility] VENLAFAXINE HCL 75 MG TABS Take 1 tablet (75 mg total) by mouth daily Take with 150mg capsule venlafaxine 14393074335 [facility] PEG 3350 17 GM/SCOOP POWD Take 17 g by mouth daily. polyethylene glycol 3350 89825096873 [facility] PANTOPRAZOLE SODIUM 40 MG TBEC Take 1 tablet (40 mg total) by mouth 2 (two) times daily. pantoprazole 84627528495 [facility] OXYCODONE HCL 5 MG TABS Take 1 tablet (5 mg total) by mouth every 4 (four) hours as needed for up to 10 days Look-alike/Soun d-alike medication. Max Daily Amount: 30 mg oxycodone 41937208557 [facility] MONTELUKAST SODIUM 10 MG TABS Take 1 tablet (10 mg total) by mouth nightly. montelukast 13072392246 [facility] MINOCYCLINE HCL 100 MG CAPS Take 1 capsule (100 mg total) by mouth every 12 (twelve) hours for 21 days. minocycline 86244725546 [facility] LEVOTHYROXINE SODIUM 125 MCG TABS Take 1 tablet (125 mcg total) by mouth Daily (0600). levothyroxine 93458050882 [facility] IPRATROPIUM-ALBU TEROL 0.5-2.5 (3) MG/3ML SOLN Inhale 3 mLs by nebulization every 6 (six) hours as needed for shortness of breath. ipratropium-alb uterol 61803903402 [facility] INSULIN LISPRO (1 UNIT DIAL) 100 UNIT/ML SOPN Inject 16 Units under the skin 3 (three) times daily with meals. insulin lispro 95882167952 [facility] insulin glargine (Basaglar KwikPen U-100 Insulin) 100 unit/m Inject 40 Units under the skin nightly. Basaglar KwikPen U-100 Insulin [facility] TRELEGY ELLIPTA 200-62.5-25 MCG/ACT AEPB Inhale 1 puff by mouth daily. fluticasone-ume clidin-vilanter 35961840746 [facility] KP FERROUS GLUCONATE 324 (37.5 Fe) MG TABS Take 1 tablet (324 mg total) by mouth daily with breakfast. ferrous gluconate 23341268469 [facility] DAPAGLIFLOZIN PROPANEDIOL 5 MG TABS Take 1 tablet (5 mg total) by mouth daily. dapagliflozin propanediol 15316893484 [facility] cholecalciferol, vitamin D3, 25 mcg (1,000 unit) capsule Take 1 capsule (1,000 Units total) by mouth daily. 1,000 unit [facility] CARVEDILOL 12.5 MG TABS Take 1 tablet (12.5 mg total) by mouth 2 (two) times daily. carvedilol 47746407007 [facility] BUSPIRONE HCL 7.5 MG TABS Take 1 tablet (7.5 mg total) by mouth 2 (two) times daily. buspirone 60623140322 [facility] ALBUTEROL SULFATE HFA 108 (90 Base) MCG/ACT AERS Inhale 1 puff by mouth every 6 (six) hours as needed for wheezing. albuterol sulfate 02723825956 [facility] daptomycin brigido brewer Cubicin 500mg IV [id number] NA daptomycin brigido Flores RN Medications Administered No information available. Allergies, Adverse Reactions, Alerts Allergy Name Reaction Description Start Date Severity Statu s Provider LEVOFLOXACIN Hives Critical Active Flory G ambill Results Date Name Value Unit Range Flag Description Office Visit: Office Visit:r m 14 FALLRSKAELIES yes Fall ris k assessment Chart Maintenance CPK 66 U/L Creatine denny se [Enzymatic activity/volume] in Serum or Plasma Lab Report: CBC (NO DIFF) PLATELETS 292 10*3/mm3 140-450 Platelets [#/volume] in Blood by Automated count [id number] 11.4 fL 6.0-12.0 GE use onl y - for [employer] import when terms are not otherwise specified RDW_ 16.4 12.3-15.4 H RDW, no uni ts MCHC 31.6 G/DL 31.5-35.7 MCHC [Mass/ volume] by Automated count MCH 26.8 pg 26.6-33.0 MCH [Entiti c mass] by Automated count MCV 84.9 fL 79.0-97.0 MCV [Entiti c volume] by Automated count HCT 42.1 % 37.5-51.0 Hematocrit [Volume Fraction] of Blood by Automated count HGB 13.3 g/dL 13.0-17.7 Hemoglobin [Mass/volume] in Blood RBC 4.96 10*6/mm3 4.14-5.80 Erythrocyt es [#/volume] in Blood by Automated count WBC 12.18 10*3/mm3 3.40-10.8 0 H Leukocytes [#/volume] in Blood by Automated count Lab Report: SEDIMENTATION RA TE ESR 12 mm/h 0-20 Erythrocyte sedimentation rate by Westergren method Lab Report: C-REACTIVE PROTE IN CRP <0.30 mg/dL 0.00-0.50 C reactive protein [Mass/volume] in Serum or Plasma Lab Report: COMPREHENSIVE ME TABOLIC PANEL ANIONGAP 11.0 mmol/L 5.0-15.0 anion gap, serum BUN/CREAT 20.0 7.0-25.0 Urea nitrogen/Creatinine [Mass Ratio] in Serum or Plasma BILI TOTAL 0.3 mg/dL 0.0-1.2 Bilirubin. total [Mass/volume] in Serum or Plasma ALK PHOS 82 U/L 39-117 Alkaline annie sphatase [Enzymatic activity/volume] in Blood SGOT (AST) 15 U/L 1-40 Aspartate aminotransferase [Enzymatic activity/volume] in Serum or Plasma SGPT (ALT) 19 U/L 1-41 Alanine aminotransferase [Enzymatic activity/volume] in Serum or Plasma ALBUMIN 4.2 g/dL 3.5-5.2 Albumin [Mass/volume] in Serum or Plasma PROTEIN, TOT 6.7 g/dL 6.0-8.5 Protein [Mass/volume] in Serum or Plasma CALCIUM 8.8 mg/dL 8.6-10.5 Calcium [Moles/volume] in Serum or Plasma CO2 26.0 mmol/L 22.0-29.0 Carbon diox sumanth, total [Moles/volume] in Venous blood CHLORIDE 100 mmol/L 98-107 Chloride [Moles/volume] in Serum or Plasma POTASSIUM 5.1 mmol/L 3.5-5.2 Potassium [Moles/volume] in Serum or Plasma SODIUM 137 mmol/L 136-145 Sodium [Moles/volume] in Serum or Plasma CREATININE 1.29 mg/dL 0.76-1.27 H Creatini ne [Mass/volume] in Serum or Plasma BUN 25.8 mg/dL 8.0-23.0 H Urea nitroge n [Mass/volume] in Serum or Plasma GLUCOSE SER 221 mg/dL 65-99 H Glucose [Mass/volume] in Serum or Plasma Office Visit: Office Visit: 13 SMOK STATUS Never smoker Tobacco smoking status MEDS REVIEW Done Documenta tion of current medications (procedure) Plan of Care Type Date Detail Pending order CMP Pending order CBC w/o Differen tial Pending order C- reactive prot ein Pending order Sedimentation Ra te (ESR) Pending order PICC Removal Pending order Discontinue IV a ntibiotics Pending order Continue oral an tibiotics Pending order Continue IV anti biotics Pending order Weekly Labs (Con tinue) Pending order Weekly PICC Line Care Pending order Continue IV anti biotics Pending order Continue oral an tibiotics Pending order Weekly Labs (Con tinue) Pending order Weekly PICC Line Care Pending order Continue IV anti biotics Pending order Weekly Labs (Con tinue) Pending order Weekly PICC Line Care Pending order Continue IV anti biotics Pending order Continue oral an tibiotics Pending order Weekly Labs (Con tinue) Pending order Weekly PICC Line Care Procedures Code Procedure Name Date Entry Date G2 Complex E&M visit add-on (G221) G221 Complex E&M visit add-on (G2) CPT-ca Continue IV antibiotics 2024 CPT-cwl Weekly Labs (Continue) 06/05 CPT-wpc Weekly PICC Line Care 06/05 G2 Complex E&M visit add-on (G2) G221 Complex E&M visit add-on (G2) CPT-ca Continue IV antibiotics 2024 CPT-Cooral Continue oral antibiotics 11/06/12 CPT-cwl Weekly Labs (Continue) 05/29 CPT-wpc Weekly PICC Line Care 05/29 CPT-ca Continue IV antibiotics 2024 CPT-cwl Weekly Labs (Continue) 05/22 CPT-wpc Weekly PICC Line Care 05/22 G221 Complex E&M visit add-on (G2) CPT-ca Continue IV antibiotics 2024 CPT-Cooral Continue oral antibiotics 11/05/30 CPT-cwl Weekly Labs (Continue) 05/16 CPT-wpc Weekly PICC Line Care 05/16 Vital Signs Date Name Value Unit Description [...] M Immunizations No information available. Advance Directives Directive Description Start Date HEALTHCARE SURROGATE
--- OUTSIDE RECORDS SUMMARY | 2025-07-18 08:03 | XMS_ITS | Encounter Summary ---
Author Organization [facility] Address [address] [place] [address] Care Team Providers Care Contact Center Professional Name Role Phone Trent Guaman MD Primary Care Provider Reason for Visit * Reason Comments Med Refill Encounter Details Date Type Department Care Team ([facility] Contact Info) Description 07/06/2025 Refill [facility] [address] [address] Lee Palacios MD [address] [place], [place] [id number] Social History Tobacco Use Types Packs/Day Years [...] on file documented as of this encounter Miscellaneous Notes * Telephone Encounter - Aury Grimes MA - 07/06/2025 10:46 AM EDT Rx Refill Note Requested Prescriptions Pending Prescriptions Disp Refills dapagliflozin (Farxiga) 5 MG tablet tablet [Pharmacy Med Name: FARXIGA TABS 5MG] 90 tablet 1 Sig: TAKE 1 TABLET DAILY Last office visit with prescribing clinician: 06/21/2025 Next office visit with prescribing clinician: 10/22/2025 Aury Grimes MA 07/06/25, 10:47 EDT documented in this encounter Plan of Treatment Upcoming Encounters Date Type Department Care Team (Late st Contact Info) Description 10/22/2025 3:45 PM EST Office Visit [facility] [address] [address] Lee Palacios MD [address] [address] documented as of this encounter Visit Diagnoses Not on filedocumented in this encounter Care Teams Contact Center Professional Relationship Specialty Start Date End Date Trent Guaman MD [address] [place] [id number] PCP - General Emergency Medicine 09/14/23 documented as of this encounter
--- OUTSIDE RECORDS SUMMARY | 2025-07-18 08:03 | XMS_ITS | Data Portability ---
Author Organization [facility] ADMIN Address [address] [place] [address] Care Team Providers Care Platen Drier Operator Name Role Phone CAROL IQBAL Industrial Radiographer [facility] Primary Care Provider JULIO C AMAYA Primary Care Provider Assessment Encounter Date Assessment Date Assessment LastModified by Organization Details LastModified Time 03/21/2025 03/21/2025 Evaluation and examination. Discussed podiatric pathology including treatment options with the patient and son at length (> 35 minutes spent in interview, exam, counseling and documentation in addition to treatment). Discussed potential severity of condition. Not available 03/21/2025 16:11:29 04/06/2025 04/06/2025 Evaluation and examination. Discussed podiatric pathology including treatment options with the patient. [email or web address] Not available 04/06/2025 11:15:17 Plan of Treatment Reminders Order Date Submit Date Provider Last Modified By Organization Details Last Modified Time Details Appointments None recorded. Lab culture, aerobic + anaerobic 2024 025 [email or web address] [facility] (Add On Labs Only), [address] [place] [address] [place], [address], 08:16:45 Referral None recorded. Procedures None recorded. Surgeries None recorded. Imaging XR, chest, 2 view 2024 025 [facility] ([facility]), [address] [place], [address], 00:21:56 XR, foot 2024 025 [facility], [address] [place] [address], [address], [place], [address], 16:25:57 Medication Orders triamcinolo ne acetonide 40 mg/mL suspension for injection 2024 025 tpardini Not available 15:22:09 dexamethaso ne sodium phosphate 4 mg/mL injection solution 2024 025 tpardini Not available 15:23:35 prednisone 50 mg tablet 2024 025 [facility], [address] [place] [address], [id number], 5 05:02:18 doxycycline hyclate 100 mg capsule 2024 025 tpardini [facility], [address] [place] [address], [id number], 5 14:58:30 triamcinolo ne acetonide 40 mg/mL suspension for injection 2024 025 tpardini Not available 14:58:38 dexamethaso ne sodium phosphate 4 mg/mL injection solution 2024 025 tpardini Not available 14:58:27 Patient TargetsNo targets recorded. Patient Instructions Encounter Date Encounter Id Patient Instructions Last Modified By Organization Details Last Modified Time 03/21/2025 [id number] diabetes foot health: care instructions Not available 03/21/2025 16:25:57 f/u 2-3 weeks wound check cconlee Not available 03/21/2025 15:25:56 Some of the information in this note was entered by the AIR CONDITIONING EQUIPMENT MECHANIC under the direction and training of the attending physician. I have reviewed the documentation of the encounter entered by the AIR CONDITIONING EQUIPMENT MECHANIC and attest that it is accurate. M*Modal transcription specialist software was utilized to enter some information in this note and therefore may contain voice recognition errors. Intake and other documentation entered by Marianne Noguera CMA. cconlee Not available 03/21/2025 14:58:28 04/06/2025 0399920 f/u 3-4 weeks wound w/x-rays Not available 04/06/2025 12:42:33 Some of the information in this note was entered by the [facility] under the direction and training of the attending physician. I have reviewed the documentation of the encounter entered by the [facility] and attest that it is accurate. M*Modal transcription specialist software was utilized to enter some information in this note and therefore may contain voice recognition errors. Intake and other documentation entered by Marianne Noguera CMA. [email or web address] Not available 04/06/2025 10:44:13 Reason for Referral None Reported. Results Created Date Observation Date Name Description Value Unit Range Abnormal Flag Note LastModifiedBy Organization Detail LastModifiedTime 03/21/2003/21/2025 CULTU RE ANAER OBIC results [facility] 03-24 1122 No Anaer obes [place] kelvin at 2 Days RK 03-28 1513 No Anaer obes [place] kelvin at 7 Days Not Available [facility] ([facility]) [address] [place] [address] [place], [address], 03/28/2025 15:14:28 03/21/20 25 03/21/2025 CULTU RE ANAER OBIC note Eitanes s other dillard noted testi ng perfo rmed at: [facility] [address] [place] [address] George kingsley MD Not Available [facility] ([facility]) [address] [place] [address] [place], [address], 03/28/2025 15:14:28 03/21/20 25 03/21/2025 GRAM STAIN source WOUND Not Available [facility] ([facility]) [address] [place] [address] [place], [address], 03/21/2025 19:17:26 03/21/20 25 03/21/2025 GRAM STAIN quantitation #1 MANY Not Available [facility] ([facility]) [address] [place] [address] [place], [address], 03/21/2025 19:17:26 03/21/20 25 03/21/2025 GRAM STAIN organism #1 GRAM POS ASAEL Not Available [facility] ([facility]) [address] [place] [address] [place], [address], 03/21/2025 19:17:26 03/21/20 25 03/21/2025 GRAM STAIN quantitation #2 FEW Not Available [facility] ([facility]) [address] [place] [address] [place], [address], 03/21/2025 19:17:26 03/21/20 25 03/21/2025 GRAM STAIN organism #2 GRAM POS COCCI Not Available [facility] ([facility]) [address] [place] [address] [place], [address], 03/21/2025 19:17:26 03/21/20 25 03/21/2025 GRAM STAIN morphology 2 PAIRS Not Available [facility] ([facility]) [address] [place] [address] [place], [address], 03/21/2025 19:17:26 03/21/20 25 03/21/2025 GRAM STAIN quantitation #3 OCCASI ONAL Not Available [facility] ([facility]) [address] [place] [address] [place], [address], 03/21/2025 19:17:26 03/21/20 25 03/21/2025 GRAM STAIN organism #3 GRAM NEG RODS Not Available [facility] ([facility]) [address] [place] [address] [place], [address], 03/21/2025 19:17:26 03/21/20 25 03/21/2025 GRAM STAIN WBC FEW no WBC's seen Not Available [facility] ([facility]) [address] [place] [address] [place], [address], 03/21/2025 19:17:26 03/21/20 25 03/21/2025 GRAM STAIN yeast NONE SEEN none seen Not Available [facility] ([facility]) [address] [place] [address] [place], [address], 03/21/2025 19:17:26 03/21/2003/21/2025 GRAM STAIN gram positive QC slide PASS PASS Not Available [facility] ([facility]-Op [facility]) [address] [place] [address] [place], [address], 03/21/2025 19:17:26 03/21/20 25 03/21/2025 GRAM STAIN gram negative QC slide PASS PASS Not Available [facility] ([facility]) [address] [place] [address] [place], [address], 03/21/2025 19:17:26 03/21/2003/21/2025 GRAM STAIN note Unles s other dillard noted testi ng perfo rmed at: [facility] [address] [place] [address] George kingsley MD Not Available [facility] ([facility]) [address] [place] [address] [place], [address], 03/21/2025 19:17:26 03/21/2003/21/2025 CULTU RE WOUND culwnd ===== ===== ===== ===== ===== ===== ===== ===== ===== ===== ===== ===== ===== ===== ===== ===== ===== ===== ===== ===== ===== ===== ===== ===== CULTU RE NO.: [id number] Exam Statu s: Final Exam Type: CULTU RE WOUND ===== ===== ===== ===== ===== ===== ===== ===== ===== ===== ===== ===== ===== ===== ===== ===== ===== ===== ===== ===== ===== ===== ===== ===== Cultu re Repor t: Organ ism #01 Enter ococc us faeca lis (ENT FAA) Antib iotic s ENTCF AA Achie vable Achie vable (01) Dosag e Serum Level Urine Level mcg/m l mcg/m l Ampic illin 1 S 007A Dapto mycin <=1 S 007A Genta micin -Syn >500 R 007A Linez olid <=1 S 007A Penic illin G 8 S 007A Strep tomyc in-Sy n <=100 0 S 007A Vanco mycin <=0.5 S 007A [facility] 03-23 837 Ani l Skin Deepali at 1 Day [facility] 03-24 843 [place] te:1 Heavy Growt h Coagu lase Posit herlinda Staph yloco ccus [facility] 03-24 844 [place] te is PBP2A Negat herlinda This indic ates a negat herlinda scree darwin test for MRSA. Susce ptibi lityt Testi ng to follo w. Not Available [facility] ([facility]) [address] [place] [address] [place], [address], 03/25/2025 07:04:18 03/21/20 25 03/21/2025 CULTU RE WOUND note Unles s other dillard noted testi ng perfo rmed at: [facility] [address] [place] [address] George kingsley MD Not Available [facility] ([facility]) [address] [place] [address] [place], [address], 03/25/2025 07:04:18 03/01/20 25 03/01/2025 imagi ng inter preta tion No observ ation record ed. [email or web address] [facility] [address], [place], [address], 03/02/2025 08:33:09 03/02/20 25 03/01/2025 imagi ng inter preta tion No observ ation record ed. [facility] [address], [place], [address], 03/05/2025 08:17:04 03/21/20 25 XR, foot No observ ation record ed. [facility] [address], [place], [address], 03/21/2025 16:07:10 05/08/20 25 04/27/2025 imagi ng inter preta tion No observ ation record ed. [facility] [address] [place], [address], 05/09/2025 13:51:52 07/05/20 25 07/04/2025 XR, chest , 2 view [facility] [address] [place] [address] Phone: Fax: Name: ROGELIO PEREZ Exam Date: 025 : 950 Age 75 years Gender : M Access ion: [id number] Physic ethan: KIRILL AMAYA NDE Facili ty: [facility] Facili ty HSV: Outpat ient Exam: CHEST PA ^ LAT PA and latera l chest: 2 Views CLINIC AL INDICA TION: Male, 75 years old. wheezi ng COMPAR MARC: April 24, 2025 Findin gs: Trache a and medias tinum are midlin e. Cardia c silhou ette is within normal limits . Lungs are hypere xpande d. There is no locali zed consol idatio n or effusi on. Impres fidel: COPD withou t consol idatio n or effusi on. Electr onical ly signed by: Michelle Johnson MD 2024 12:17 AM EDT RP Workst ation: [id number] Dictat ed By: MICHELLE JOHNSON Y Transc ribed By: Transc ribed On: 025 5:54 PM Electr onical ly signed by: MICHELLE JOHNSON Y 025 Thank you for referr ROGELIO Cai to [facility]. Legall y authen ticate d by LITZY Kong MD 07-04 17:54: 56 CC'ed Logic: Orderi ng Provid er: JOSE LUIS ROY NDE CC Provid er: SOERNESTINE GEEATU NDE Attend ing Provid er: SOERNESTINE ALARCONU NDE Referr ing Provid er: JOSE LUIS ALARCONU NDE Admitt ing Provid er: SOERNESTNIE ROY NDE [facility] (Radiology) [address] [place] [address] [place], [address], 07/05/2025 08:59:12 Result Notes Documentation Provider Name and Address Organization Details Recorded Time Xr, Chest, 2 View : [address] [place] [address] Name: ROGELIO KRAFT Exam Date: 07/04/2025 : 1950 Age 75 years Gender: M Physician: JULIO C AMAYA Facility: [facility] Facility HSV: Outpatient Exam: CHEST PA ^ LAT PA and lateral chest: 2 Views CLINICAL INDICATION: Male, 75 years old. wheezing COMPARISON: April 24, 2025 Findings: Trachea and mediastinum are midline. Cardiac silhouette is within normal limits. Lungs are hyperexpanded. There is no localized consolidation or effusion. Impression: COPD without consolidation or effusion. Electronically signed by: Dalia Johnson MD 07/05/2025 12:17 AM EDT RP Dictated By: DALIA JOHNSON Transcribed By: Transcribed On: 07/04/2025 5:54 PM Electronically signed by: DALIA JOHNSON 07/04/2025 Thank you for referring ROGELIO KRAFT to [facility]. Legally authenticated by LITZY HARO MD 2025-07-04 17:54:56 CC'ed Logic: Ordering Provider: JOSE LUIS BUNCH CC Provider: JOSE LUIS BUNCH Attending Provider: JOSE LUIS BUNCH Referring Provider: JOSE LUIS BUNCH Admitting Provider: JOSE LUIS BUNCH Not Available [facility] 07/05/2025 08: 59:12 Problems Name Problem SNOMED Code Status Onset Date Resolution Date Notes Provider Name and Address Organization Details Recorded Time Patient encounter status 906966078 Active Rossana Pardini null, [place] - [facility] - [place] & [place] 5 12:26:35 Peripheral vascular disorder due to diabetes mellitus 255026514 Active Rossana Pard[place] [facility] - [facility] & [place] 5 12:26:35 Aneurysm of ascending aorta 582828968 Active Rossana [place]ard[place] - [facility] & [place] 5 12:26:35 Laboratory test result abnormal 447474017 Active Rossana [place] - [facility] & [place] 4 15:24:19 Requires vaccinatio n 254517701 Active Rossana [place] [facility] & [place] 4 15:24:20 Dyspnea 264176790 Active Rossana [place] [facility] & [place] 4 15:24:19 Exacerbati on of moderate persistent asthma 840979698 Active Rossana [place] [facility] & [place] 4 15:24:20 Acquired hypothyroi dism 335587610 Active Rossana [place] [facility] & [place] 4 15:24:19 Diabetic foot 648131586 Active Rossana [place] [facility] & [place] 4 15:24:19 Uncomplica kelvin moderate persistent asthma 311086207 Active Rossana [place] [facility] & [place] 4 15:24:20 Amputated little toe 309626600 Active Rossana [place] & [place] 4 15:24:19 Esophageal dysphagia 35494502 Active [place] & 4 15:24:19 Mixed anxiety and depressive disorder 841630812 Active [place] & 4 15:24:19 Neoplasm of uncertain behavior of body of stomach 94817672 [place] & [place] 4 15:24:20 Sarcoidosi s 12377113 [place] & 4 15:24:19 Gastritis 7001648 Active [place] & 4 15:24:20 Peripheral neuropathy due to type 2 diabetes mellitus 8780009215854 [place] Ross[place] & [place] 4 15:24:19 Conduction disorder of the heart 82231294 [place] & 4 15:24:20 Annual wellness visit Active Rossana Prem[place] & 4 15:24:20 Acute pancreatit is 132461704 Active [place] & 4 15:24:19 Generalize d anxiety disorder 49844333 Active Ross[place] & [place] 4 15:24:19 Chronic diarrhea 286636689 [place] & 4 15:24:19 Neoplasm of uncertain behavior of skin of chest 99963445 Active Rossana [place] & [place] 4 15:24:20 Malaise and fatigue 904073109 Active Rossana [place] & [place] 4 15:24:19 Chronic ulcer of foot 106036879 Active Rossana [place] & [place] 4 15:24:20 Carotid artery stenosis 74818451 Active Rossana [place] & [place] 4 15:24:20 Basal cell carcinoma of anterior chest 315584272 Active Rossana [place] & [place] 4 15:24:19 Cerebrovas cular disease 72252437 Active Rossana [place] & [place] 4 15:24:20 Pyloric obstructio n 820639910 Active Rossana [place] & [place] 4 15:24:19 Dysphagia 40826837 Active Ross[place] & [place] 4 15:24:19 Coronary arterioscl erosis 63355711 Active Rossana [place] & [place] 4 15:24:20 Neuropathy due to diabetes mellitus 481033187 Active Rossana [place] & [place] 4 15:24:19 Moderate chronic obstructiv e pulmonary disease 562514954 Active Rossana [place] & [place] 4 15:24:19 Panic disorder 754343883 Active Rossana [place] & [place] 4 15:24:19 Essential hypertensi on 32062233 Active Rossana [place] & [place] 4 15:24:20 Amputated big toe 527296209 Active Rossana [place] & [place] 4 15:24:19 Acute asthma 537438360 Active Rossana Premd[place] & [place] 4 15:24:19 Allergic rhinitis 13018226 Active Rossana Amarodini null, [place] - [facility] - [place] & [place] 4 15:24:20 Prostate specific antigen measuremen t Active Rossana Prem[place] & [place] 4 15:24:20 Type 2 diabetes mellitus 01743382 Active Rossana Pardini null, [place] - [facility] - [place] & [place] 4 15:24:20 Thyroid hormone tests outside reference range 164378654 Active Rossana Premdini null, [place] - [facility] - [place] & [place] 4 15:24:19 Hiatal hernia 00742950 Active Rossana Amarodini null, [place] - [facility] - [place] & [place] 4 15:24:20 Long-term current use of insulin 816699866 Active Rossana Premdini null, [place] - [facility] - [place] & [place] 4 15:24:20 History of amputation of foot 292430747 Active Rossana Amarodini null, [place] - [facility] - [place] & [place] 4 15:24:20 Morbid obesity 836499416 Active Rossana Amarodini null, [place] - [facility] - [place] & [place] 4 15:24:19 Coronary atheroscle rosis 837834005 Active Rossana [place] 4 15:24:20 Fatigue 38900219 Active Ross[place] 4 15:24:20 Nausea 318107942 Active Rossana [place] & [place] 4 15:24:19 Peptic ulcer 69499773 Active Rossana [place] & [place] 4 15:24:19 Hyperlipid emia 04273516 Active [place] & 4 15:24:20 Lipoma of abdominal wall 307118896 Active [place] & 4 15:24:19 Acute exacerbati on of chronic obstructiv e pulmonary disease 613197383 Active [place] & 4 15:24:19 Obstructiv e sleep apnea syndrome 67745234 Active [place] & 4 15:24:20 Diarrhea 87821241 Active [place] & 4 15:24:20 Hypokalemi a 23545554 Active [place] & 4 15:24:20 Gastric polyp 44042698 Active [place] & 4 15:24:20 Mild intermitte nt asthma 190282047 Active [place] & 4 15:24:19 Hypothyroi dism 93232255 Active [place] & 4 15:24:19 Paresthesi a of hand 122900620 Active [place] & 4 15:24:19 Constipati on 42472714 Active [place] & 4 15:24:19 At increased risk for falls 501750550 Active [place] & 4 15:24:19 Chronic obstructiv e pulmonary disease 02755194 Active [place] & 4 15:24:19 Color blindness 621435927 Active [place] & 4 15:24:19 Asthma 809935069 Active [place] & 4 15:24:19 High frequency deafness 726855364 Active [place] & 4 15:24:19 Abdominal aortic aneurysm 431233950 Active [place] & 4 15:24:19 Occlusion of left vertebral artery 6917696992722 02 Active [place] & 4 15:24:19 Hypotestos teronism 3908471025895 Active [place] & 4 15:24:19 Hypertensi ve disorder 36150694 Active [place] & 4 15:24:19 Simple obesity 473357726 Active [place] & 4 15:24:19 History of cholecyste ctomy 226495970 Active [place] & 4 15:24:19 Osteomyeli tis of forefoot 273295577 Active [place] & 4 15:24:20 Pancreatit is 67255546 Active [place] & 4 15:24:20 Bilateral stenosis of carotid arteries 008754720 Active [place] & 4 15:24:20 Erectile dysfunctio n 047053453 Active Rossana [place] 4 15:24:20 Anemia 922194721 Active Ross[place] & [place] 4 15:22:49 Pyloric ulcer 65497148 Active Rossana [place] 4 15:22:49 Obese 283991350 Active Rossana [place] 4 15:22:49 Gastrointe stinal hemorrhage 33842248 Active Rossana [place] 4 15:22:50 Pulmonary emphysema 67886634 Active 2022 Rossana [place] 4 15:24:20 Dyspnea on exertion 61118763 Active 2022 Ross[place] & [place] 4 15:24:20 Obesity 179587312 Active 2022 Rossana [place] 4 15:24:19 Hypoxemia 821786722 Active 2022 Rossana [place] 4 15:24:19 Gastro-eso phageal reflux disease with esophagiti s 216277944 Active 2022 Rossana [place] & [place] 4 15:24:19 Upper gastrointe stinal bleeding 39066111 Active 2022 Rossana [place] & [place] 4 15:24:19 Pulmonary sarcoidosi s 36490912 Active 2023 Uri Munoz MD [address] [facility], [place], [address] , [place] & [place] 4 14:51:26 Melena 2507881 Active 2023 Carol Iqbal NP [address] [place] [address], [address], [place], [address] , [place] & [place] 4 14:14:17 Complicati on due to diabetes mellitus 32586731 Active 2023 Julio C Amaya MD [address] [place], [address] , [place] & [place] 4 16:06:17 Unintentio nal weight loss 286903249 Active 2024 Carol Iqbal NP [address] [place] [address], [address], [place], [address] , [facility] - [facility] & [place] 5 11:44:25 Early satiety 953439022 Active 2024 Carol Iqbal NP [address] [place] [address], [address], [address] , [facility] - [facility] & [place] 5 11:50:53 Notes:Some problems listed i n Document: #[id number] could not be added to this patient's chart. Please review this document and add these problems to the patient's chart manually as needed. Problem Notes None recorded. Procedures Surgical History Date Name Laterality Status Provider Name and Address Organization Details Recorded Time 04/06 Ulcer Debridement completed Radha Gatica DPM [address] [place] [address], [address], [address], [place] - [facility] & [place] 5 12:39:05 03/21 Ulcer Debridement completed Radha Gatica DPM [address] [place] [address], [address], [address], [place] [facility] & [place] 5 16:00:47 03/21 Nail Debridement (1-5) completed [facility] & [place] 5 14:58:27 12/06 esophagogastroduodenoscopy completed Axel Ibarra [place] & [place] 5 18:39:58 12/06 Colonoscopy completed Gabby [place]ra [place] & [place] 5 18:40:18 10/18 Other completed [place]ana [place]oni [place] & [place] 5 14:55:24 12/07 Nail Debridement (1-5) completed Marianne [place]og[place]era [place] & [place] 4 10:38:23 10/18 Cardiovascular Surgery completed Lesley [place]os [place] & [place] 4 13:01:08 09/28 esophagogastroduodenoscopy [place]el [place] & [place] 3 11:15:56 09/15 esophagogastroduodenoscopy completed Axel [place] & [place] 3 11:15:51 09/04 Nail Debridement (1-5) completed [place]phani [place] & [place] 2 11:38:33 09/04 Debridement Corns/Callouses 2-4 completed Radha Gatica, NEFTALY [address] [place] [address], [address], [place], [address] [place] & [place] 2 14:34:15 10/18 Head or Neck Surgery completed Rita [place]ate [place] & [place] 2 09:53:56 10/18 Other completed [place]odini [place] & [place] 2 14:59:52 Other completed Rita Charlie [place] & [place] 2 09:53:56 cholecystectomy completed Nicole Mosher [place] - [facility] - [place] & [place] 2 11:20:02 total replacement of left knee joint completed Sena Mosher [place] - [facility] [place] & [place] 2 11:20:39 [facility] right great [facility] [place] 2 11:21:17 Imaging Results None recorded. Procedure Notes None recorded. Medical Equipment None Reported. Allergies Allergen ID Allergen Name Allergen Category Reaction Reaction Severity Criticality Documentation Date Start Date Code Code System Note Provider Name and Address Organization Details Recorded Time [id number] levofloxa sofi medicatio n itching rash moderate moderate Not available 11/03/2023 00125 RxNorm PARUL Monterroso [facility] & [place] 5 10:46:08 [id number] Levaquin medicatio n Not available Not available Not available 07/03/2022 08436 2 RxNorm Hoda ya, [facility] & [place] 2 11:10:01 Medications Name Sig Start Date Stop Date Status Note LastModified by Organization Details LastModified Time Prescriptio n - Prior Authorizati on Request active Not Available Not Available N ot Available amoxicillin 500 mg capsule Take 1 capsule every 12 hours by oral route for 7 days. 05/17 completed Not Available Not Available Not Available furosemide 40 mg tablet 08/13 completed Not Available Not Available Not Available furosemide 10 mg/mL injection solution 20 mg by injection route. 09/29 completed Not Available Not Available Not Available atorvastati n 40 mg tablet (40 MG) active Not Available Not Available Not Available buspirone 5 mg tablet 7.5 mg by oral route. 09/29 completed Not Available Not Available Not Available metformin 500 mg tablet Take 2 tablets by oral route. 07/04 completed Not Available Not Available Not Available promethazin e-DM 6.25 mg-15 mg/5 mL oral syrup 06/14 completed Not Available Not Available Not Available atorvastati n 80 mg tablet 07/04 completed Not Available Not Available Not Available acetaminoph en 325 mg tablet 650 mg by oral route. 09/29 completed Not Available Not Available Not Available prednisone 10 mg tablet Take 1 tablet by oral route. 07/04 completed Not Available Not Available Not Available venlafaxine ER 75 mg capsule,ext ended release 24 hr (75 MG) active Not Available Not Available Not Available doxycycline hyclate 100 mg capsule 07/04 completed Not Available Not Available Not Available carvedilol 12.5 mg tablet TAKE 1 TABLET TWICE A DAY WITH FOOD (NEEDS TO MAKE A FOLLOW UP APPOINTME NT) 2024 active Not Available Not Available Not Avai lable venlafaxine 75 mg tablet Take 1 tablet every day by oral route as directed for 90 days, for anxiety-d epression . active Not Available Not Available No t Available ipratropium 0.5 mg-albutero l 3 mg (2.5 mg base)/3 mL nebulizatio n soln use 3 mL via nebulizer route every 4 hours As Needed for wheezing active Not Available Not Available No t Available ketoconazol e 2 % shampoo 11/08 completed Not Available Not Available Not Available albuterol sulfate 2.5 mg/3 mL (0.083 %) solution for nebulizatio n INHALE 1 VIAL BY MOUTH VIA NEBULIZER EVERY 8 HOURS NEEDED active Not Available Not Available No t Available loperamide 2 mg capsule 1 capsule every day by oral route. active Not Available Not Available No t Available cetirizine 10 mg tablet TAKE 1 TABLET BY MOUTH DAILY 07/03 completed Not Available Not Available Not Available aspirin 325 mg tablet Take 1 tablet by oral route. 05/17 completed Not Available Not Available Not Available Lidocaine Viscous 2 % mucosal solution 10 mL by mucous mem route. 09/28 completed Not Available Not Available Not Available benzonatate 200 mg capsule Take 1 capsule 3 times a day by oral route. 03/21 completed Not Available Not Available Not Available hydrocodone 5 mg-acetamin ophen 325 mg tablet TAKE 1 TABLET BY MOUTH EVERY 4 HOURS. TAKE WITH FOOD 12/02 completed Not Available Not Available Not Available minocycline 100 mg capsule Take 1 capsule by mouth twice a day active Not Available Not Available No t Available sucralfate 1 gram tablet TAKE ONE TABLET BY MOUTH FOUR TIMES DAILY 05/17 completed Not Available Not Available Not Available ondansetron HCl 4 mg tablet TAKE 1 TABLET BY MOUTH EVERY DAY 09/16 /2022 completed Not Available Not Available Not Available Synthroid 125 mcg tablet 07/04 completed Not Available Not Available Not Available prednisone 20 mg tablet (20 mg) 05/17 completed Not Available Not Available Not Available isosorbide mononitrate ER 30 mg tablet,exte nded release 24 hr 08/13 completed Not Available Not Available Not Available Debrox 6.5 % ear drops 5 DROPS INTO AFFECTED EAR TWICE DAILY FOR 7 DAYS 07/03 completed Not Available Not Available Not Available Zithromax Z-Ray 250 mg tablet 09/25 completed Not Available Not Available Not Available venlafaxine ER 150 mg capsule,ext ended release 24 hr TAKE 1 CAPSULE DAILY WITH FOOD 2024 active Not Available Not Available Not Avai lable metronidazo le 500 mg/100 mL in sodium chlor(iso) intravenous piggyback 500 mg by intraven. route. 09/28 completed Not Available Not Available Not Available potassium chloride ER 10 mEq tablet,exte nded release TAKE 1 TABLET BY MOUTH EVERY DAY 08/22 completed Not Available Not Available Not Available clopidogrel 75 mg tablet TAKE 1 TABLET BY MOUTH DAILY active Not Available Not Available No t Available fexofenadin e 180 mg tablet Take 1 tablet every day by oral route. active Not Available Not Available No t Available amlodipine 5 mg tablet 10 mg by oral route. 09/29 completed Not Available Not Available Not Available triamcinolo ne acetonide 0.1 % topical cream 09/25 completed Not Available Not Available Not Available hydralazine 20 mg/mL injection solution 10 mg by injection route. 09/29 completed Not Available Not Available Not Available theophyllin e ER 300 mg tablet,exte nded release,12 hr 08/04 completed Not Available Not Available Not Available levothyroxi ne 100 mcg tablet 07/04 completed Not Available Not Available Not Available alprazolam 0.5 mg tablet 0.5 mg by oral route. 09/29 completed Not Available Not Available Not Available ceftriaxone 1 gram solution for injection Take 1 g by injection route. 07/04 completed Not Available Not Available Not Available amoxicillin 875 mg tablet TAKE 1 TABLET BY MOUTH TWICE DAILY 07/03 completed Not Available Not Available Not Available Protonix 40 mg intravenous solution 40 mg by intraven. route. 09/29 completed Not Available Not Available Not Available aspirin 325 mg tablet,annie yed release (325 MG) active Not Available Not Available Not Available meclizine 25 mg tablet TAKE 1 TABLET BY MOUTH THREE TIMES DAILY NEEDED FOR DIZZINESS 07/03 completed Not Available Not Available Not Available benzonatate 100 mg capsule TAKE 2 CAPSULES BY MOUTH THREE TIMES DAILY NEEDED 11/03 completed Not Available Not Available Not Available doxycycline monohydrate 100 mg capsule TAKE 1 CAPSULE BY MOUTH TWICE DAILY 09/25 completed Not Available Not Available Not Available triamcinolo ne acetonide 40 mg/mL suspension for injection Take 1 mL by injection route. 2024 active Not Available Not Available Not Avai lable pantoprazol e 40 mg tablet,annie yed release TAKE 1 TABLET TWICE A DAY 2024 active Not Available Not Available Not Avai lable oseltamivir 75 mg capsule Take 1 capsule every day by oral route for 7 days. 03/21 completed Not Available Not Available Not Available ferrous sulfate 325 mg (65 mg iron) tablet 1 tablet every day by oral route. active Not Available Not Available No t Available prednisone 50 mg tablet Take 1 tablet every day by oral route for 7 days. 07/18 completed Not Available Not Available Not Available nicotine 21 mg/24 hr daily transdermal patch 1 pat by transderm . route. 09/29 completed Not Available Not Available Not Available buspirone 7.5 mg tablet TAKE 1 TABLET TWICE A DAY 2024 active Not Available Not Available Not Avai lable gentamicin 0.1 % topical cream APPLY 1 GRAM TOPICALLY TO THE AFFECTED AREA TWICE DAILY DIRECTED 07/03 completed Not Available Not Available Not Available aspirin 81 mg chewable tablet Chew 1 tablet by oral route. 11/03 completed Not Available Not Available Not Available felodipine ER 10 mg tablet,exte nded release 24 hr TAKE 1 TABLET BY MOUTH EVERY DAY active Not Available Not Available No t Available montelukast 10 mg tablet TAKE 1 TABLET DAILY AT BEDTIME 2024 active Not Available Not Available Not Avai lable hydroxyzine HCl 25 mg tablet active Not Available Not Available Not Available hydrochloro thiazide 25 mg tablet (25 MG) active Not Available Not Available No t Available mupirocin 2 % topical ointment apply to wound site daily until healed active Not Available Not Available No t Available sodium chloride 0.9 % intravenous solution 250 mL by intraven. route. 09/29 completed Not Available Not Available Not Available dexamethaso ne sodium phosphate 4 mg/mL injection solution Inject 1 mL by intramusc ular route. 2024 active Not Available Not Available Not Avai lable azelastine 137 mcg (0.1 %) nasal spray 05/17 completed Not Available Not Available Not Available Zosyn 2.25 gram intravenous solution 2.25 g by intraven. route. 09/28 completed Not Available Not Available Not Available polyethylen e glycol 3350 17 gram/dose oral powder Take 17 g by oral route for 2 days. 03/21 completed Not Available Not Available Not Available levofloxaci n 750 mg tablet 07/21 completed Not Available Not Available Not Available methylpredn isolone 4 mg tablets in a dose pack per pack; stop prednison e while taking this then restart daily prednison e therapy 03/21 completed Not Available Not Available Not Available albuterol sulfate HFA 90 mcg/actuati on aerosol inhaler INHALE TWO PUFFS BY MOUTH EVERY 4 TO 6 HOURS NEEDED active Not Available Not Available No t Available cefdinir 300 mg capsule 10/05 completed Not Available Not Available Not Available losartan 100 mg tablet TAKE 1 TABLET DAILY AT BEDTIME 2024 active Not Available Not Available Not Avai lable fluticasone propionate 50 mcg/actuati on nasal spray,suspe nsion SHAKE LIQUID AND USE 1 SPRAY IN EACH NOSTRIL EVERY DAY DIRECTED active Not Available Not Available No t Available metformin ER 500 mg tablet,exte nded release 24 hr (500 MG) active Not Available Not Available Not Available Zosyn 3.375 gram intravenous solution 3.375 g by intraven. route. 09/28 completed Not Available Not Available Not Available amoxicillin 875 mg-potassiu m clavulanate 125 mg tablet take 1 tab orally twice a day for 7 days 03/21 completed Not Available Not Available Not Available Cozaar 50 mg tablet 100 mg by oral route. 09/29 completed Not Available Not Available Not Available Dulcolax (bisacodyl) 5 mg tablet,annie yed release TAKE 2 TABLETS BY MOUTH FOR 1 DAY 03/21 completed Not Available Not Available Not Available buspirone 15 mg tablet 7.5 mg by oral route. 09/28 completed Not Available Not Available Not Available oxycodone 5 mg tablet 5 mg by oral route. 09/29 completed Not Available Not Available Not Available Bactrim DS 800 mg-160 mg tablet Take 1 tablet every 12 hours by oral route. 07/04 completed Not Available Not Available Not Available dextrose 50 % in water (D50W) intravenous syringe 25 mL by intraven. route. 09/29 completed Not Available Not Available Not Available sodium chloride 0.9 % (flush) injection syringe 10 mL by injection route. 09/29 completed Not Available Not Available Not Available azithromyci n 500 mg tablet take 1 tablet(50 0 mg) orally daily for 2 days; start on day 2 of therapy 03/21 completed Not Available Not Available Not Available Vitamin D3 25 mcg (1,000 unit) tablet 1 tablet by oral route. 09/25 completed Not Available Not Available Not Available levofloxaci n 500 mg/100 mL in 5 % dextrose intravenous piggyback 750 mg by intraven. route. 09/28 completed Not Available Not Available Not Available rosuvastati n 20 mg tablet 1 tablet by oral route. active Not Available Not Available No t Available Mag-Al Plus 200 mg-200 mg-20 mg/5 mL oral suspension 30 mL by oral route. 09/28 completed Not Available Not Available Not Available sodium chloride 0.9 % intravenous piggyback 100 mL by intraven. route. 09/28 completed Not Available Not Available Not Available Vitamin D3 active Not Available Not Av ailable Not Available ferrous gluconate 324 mg (38 mg iron) tablet Take 1 tablet every day by oral route as directed for 90 days. active Not Available Not Available No t Available ondansetron HCl (PF) 4 mg/2 mL injection solution 4 mg by injection route. 09/29 completed Not Available Not Available Not Available Humalog KwikPen (U-100) Insulin 100 unit/mL subcutaneou s INJECT 16 UNITS UNDER THE SKIN THREE TIMES A DAY WITH MEALS 2024 active Not Available Not Available Not Avai lable Solu-Medrol (PF) 125 mg/2 mL solution for injection Take 250 mg by injection route. 07/21 completed Not Available Not Available Not Available levothyroxi ne 125 mcg capsule Take 1 capsule every day by oral route in the morning for 90 days, for hypothyro id. 2024 active Not Available Not Available Not Avai lable roflumilast 500 mcg tablet 07/04 completed Not Available Not Available Not Available Farxiga 5 mg tablet TAKE 1 TABLET BY MOUTH ONCE DAILY active Not Available Not Available No t Available morphine 2 mg/mL intravenous syringe 2 mg by intraven. route. 09/29 completed Not Available Not Available Not Available Basaglar KwikPen U-100 Insulin 100 unit/mL (3 mL) subcutaneou s Inject 40 units every day by subcutane ous route at bedtime for 30 days. 2023 active Not Available Not Available Not Avai lable Trelegy Ellipta 100 mcg-62.5 mcg-25 mcg powder for inhalation 07/04 completed Not Available Not Available Not Available Qvar RediHaler 80 mcg/actuati on HFA breath activated aerosol INHALE INSERT PUFF BY MOUTH TWICE A DAY. 07/03 completed Not Available Not Available Not Available Ozempic 0.25 mg or 0.5 mg (2 mg/1.5 mL) subcutaneou s pen injector 08/02 completed Not Available Not Available Not Available Dexcom G6 Sensor device 06/01 completed Not Available Not Available Not Available Dexcom G6 Primary Teaching Assistant 06/01 completed Not Available Not Available Not Available BD Elis 2nd Gen Pen Needle 32 gauge x 5/32 TEST FOUR TIMES DAILY active Not Available Not Available No t Available Nucala 100 mg/mL subcutaneou s auto-inject or active Not Available Not Available Not Available Baqsimi 3 mg/actuatio n nasal spray Administe r 3 mg into the nostril(s ) as directed by provider As Needed (for severe hypoglyce tomas). 05/17 completed Not Available Not Available Not Available FreeStyle Dustin 2 Sensor kit USE DIRECTED CHANGE every 14 DAYS active Not Available Not Available No t Available FreeStyle Dustin 2 Sensor use as directed. change every 14 days active Not Available Not Available No t Available Trelegy Ellipta 200 mcg-62.5 mcg-25 mcg powder for inhalation INHALE 1 PUFF BY MOUTH EVERY DAY active Not Available Not Available No t Available insulin glargine-yf gn (U-100) 100 unit/mL (3 mL) subcutaneou s pen 8 unts by sub-q route. 09/29 completed Not Available Not Available Not Available Vitals Date Recorded Body height Body mass index (BMI) Body weight Body temperature Oxygen saturation Oxygen saturation in Arterial blood by Pulse oximetry Inhaled oxygen flow rate Heart rate Respiratory rate Systolic And Diastolic Provider Name and Address Organization Details Last Updated DateTime 5 177.8 cm 34.6 kg/m2 212739. 76 g 97.7 [degF] 97 % 97 % 3 L/min 87 /min 16 /min 147/80 mm[Hg] Rossana Edward [place] - [facility] & [place] 5 12:25:48 Date Recorded Body height Body mass index (BMI) Body weight Body temperature Oxygen saturation Oxygen saturation in Arterial blood by Pulse oximetry Heart rate Respiratory rate Systolic And Diastolic Provider Name and Address Organization Details Last Updated DateTime 5 177.8 cm 35.5 kg/m2 793831. 03 g 97.5 [degF] 96 % 96 % 69 /min 14 /min 151/86 mm[Hg] Rossanaana Lawrence [place] - [facility] & [place] 5 11:20:31 Date Recorded Body height Body mass index (BMI) Body weight Body temperature Oxygen saturation Oxygen saturation in Arterial blood by Pulse oximetry Inhaled oxygen flow rate Heart rate Respiratory rate Systolic And Diastolic Provider Name and Address Organization Details Last Updated DateTime 177.8 cm 36.2 kg/m2 353945 g 97.3 [degF] 91 % 91 % 3 L/min 83 /min 14 /min 139/70 mm[Hg] Rossana Lawrence [facility] & [place] 14:54:54 Social History Question Answer Notes LastModified by Pixability Details LastModified Time Tobacco Smoking Status Never Smoker Sena Mosher [facility], [facility] & [place] 07/03/2022 11:05:04 Do You Have An Advance Directive? No [email or web address] Information not available 07/03/2022 Are You Blind Or Do You Have Difficulty Seeing? Yes Information not available 08/05/2022 What Is Your Level Of Caffeine Consumption? Occasional Information not available 12/07/2023 What Was The Date Of Your Most Recent Tobacco Screening? 04/03/2025 [email or web address] Information not available 07/04/2025 Are You Passively Exposed To Smoke? No [email or web address] Information not available 07/03/2022 How Much Tobacco Do You Smoke? No [email or web address] Information not available 05/27/2023 Has Tobacco Cessation Counseling Been Provided? No Information not available 12/07/2023 How Many Years Have You Smoked Tobacco? 0 [email or web address] Information not available 06/14/2023 Sex: Unknown Functional Status Question Answer Note LastModified by Pixability Details LastModified Time Do you use any illicit or recreational drugs? No [email or web address] Information not available 07/03/2022 What is your level of alcohol consumption? Moderate [email or web address] Information not available 07/03/2022 Do you or have you ever used smokeless tobacco? Currently chews tobacco [email or web address] Information not available 07/03/2022 What is your exercise level? None [email or web address] Information not available 07/03/2022 Mental Status Question Answer Note LastModified by Organization D etails LastModified Time Do you feel stressed (tense, restless, nervous, or anxious, or unable to sleep at night)? [id number] Information not available 08/05/2022 Family History Relationship Description Onset Age of this Age Resolved Age Notes LastModified by Organization Details LastModified Time Mother Malignant neoplasm of pancreatic duct Not available 2024 14:40:13 Mother Diabetes mellitus [email or web address] Not available 2024 14:40:13 Mother Hypertensive disorder [email or web address] Not available 2024 10:47:47 Father Malignant neoplasm of lung Not available 2024 14:40:13 Father Hypertensive disorder [email or web address] Not available 2024 10:47:10 Father Kidney disease Not available 2024 10:47:22 Medical History Condition Response Coronary Artery Disease N Other N Gout N Kidney Stones N Blood Diseases N Hyperthyroidism N Breast Cancer N Blood Transfusion N COPD Y Depression N Lung Disease N Hypothyroidism N Defects or Inherited Disease N Developmental or Behavioral Disorders N Breast Problem N Difficulty Swallowing N Anesthesia Complications N Obstructive Sleep Apnea Y Meniere's disease N Anxiety Disorder N Muscle, Joint, or Bone Problems N Obesity Y Vision or Eye Problems Y Arthritis Y Polyps N Infertility N Cancer N Varicosities N Stroke N Endometriosis N Bladder or Kidney Problems N High Cholesterol Y Liver Disease N Fibromyalgia N Headaches N Kidney Disease N Allergies/Hayfever N Heart Problems N Ear or Hearing Problems Y Hospitalizations N Thyroid Problems Y GI Problems N ADD/ADHD N Skin Problems N Eating Disorder N Anemia N Constipation N Heart Attack ([place]) Y Mental Illness N Ovarian Cancer N Diabetes Y Bedwetting N Seizures/Epilepsy N Tuberculosis N Eczema N Diverticulitis N Abuse/Domestic Violence N Asthma N Reflux/GERD N Hepatitis N Heart Disease Y Pulmonary Embolism N Pre-Eclampsia N Hypertension Y Chronic Ear Infections N Osteoporosis N Chicken Pox N Autism Spectrum Disorder (ASD) N Thrombophilias N Immunizations Vaccine Type Date Status Note Provider Nam e and Address Organization Details Recorded Time pneumococcal polysaccharide PPV23 6 completed Not Available [facility] 12/03/2023 04:54:19 Influenza, adjuvanted, trivalent, PF 8 completed Not Available [facility] 10/04/2023 22:11:45 Tdap 9 completed Not Available [facility] 10/04/2023 22:11:45 Influenza, high-dose, trivalent, PF 1 completed Not Available [facility] 12/03/2023 04:54:19 Pneumococcal conjugate PCV 13 8 completed Not Available [facility] 12/03/2023 04:54:19 Influenza, split virus, quadrivalent, preservative 7 completed Not Available [facility] 12/03/2023 04:54:19 Td (adult), 5 Lf tetanus toxoid, preservative free, adsorbed 6 completed Not Available [facility] 12/03/2023 04:54:19 zoster live 1 completed Not Available [facility] 12/03/2023 04:54:19 Td (adult), 5 Lf tetanus toxoid, preservative free, adsorbed 1 completed Not Available [facility] 12/03/2023 04:54:19 COVID-19, mRNA, LNP-S, PF, 100 mcg/0.5mL dose or 50 mcg/0.25mL dose 1 completed Not Available [facility] 10/04/2023 22:11:45 COVID-19, mRNA, LNP-S, PF, 100 mcg/0.5mL dose or 50 mcg/0.25mL dose 1 completed Not Available [facility] 10/04/2023 22:11:45 Hep A, adult 8 completed Not Available [facility] 10/04/2023 22:11:45 Influenza, adjuvanted, trivalent, PF 8 completed Not Available [facility] 12/03/2023 04:54:19 Past Encounters Encounter ID Performer Location Encounter Start Date Encounter Closed Date Diagnosis/Indication Diagnosis SNOMED-CT Code Diagnosis ICD10 Code Diagnosis IMO Codes Diagnosis Note [id number] Lianet Myers NP [facility] Primary Care- Floor 2, [address] [place] [address],[facility] [address] [id number] 07/03/2022 10:18:55 07/03/2022 11:51:26 Cough 10934104 R05.9 R06.02 Counseled patient and his on plan for CXR and then will decide plan.Couns eled patient to go to ER if symptoms worsen.See patient case encounter for CXR results and plan [id number] Lianet Myers NP [facility] Primary Care- Floor 2, [address] [place] [address],[facility] [address] [id number] 08/03/2022 15:22:59 10/08/2022 13:27:24 Type 2 diabetes mellitus 30754198 E11.9 Dyspnea 602749927 R06.00 Chronic ob structive pulmonary disease 75774396 J44.9 continue treatment plan and finish medication s from ER [id number] [facility] [address] [place] [address],[facility] [address] [id number] 08/25/2022 14:15:01 08/25/2022 15:04:02 Obstructive sleep apnea of adult 5293689634 103 G47.33 Morbid obesity 919026094 E66.01 Idiopathic pulmonary fibrosis 088121786 J84.112 Severe per sistent asthma 050460368 J45.50 Chronic fi brosis of lung 71251224 J84.10 [id number] Radha Gatica DPM [facility] [address] [place] [address],[facility] [address] [id number] 09/04/2022 10:04:35 09/04/2022 11:39:13 Type 2 diabetes mellitus 46004295 E11.49 counseled regarding at risk foot care Contusion of toe(s) with damage to nail 757927319 S90.222A Radiograph s performed today. Findings reviewed and discussed with patient.De brided nail in thickness and length. Dressed site with silvasorb gel and DD. Monitor for infection. Callosity 706957751 L84 Debrided lesion without incident. Also filed with elis braun, monitor for worsening. Counseled regarding routine maintenanc e. Stressed importance of appropriat e shoe gear with ambulation , even in the home. Onychogryphosis 49765918 L60.2 Debrided toenails History of amputation of lesser toe 832955969 Z89.422 History of amputation of right lesser toe [id number] 9447971 Z89.421 [id number] Carol Iqbal NP [facility] [address] [facility],[place] [place] [address] 09/16/2022 10:15:28 09/16/2022 14:52:44 Gastric polyp 87832147 K31.7 3 cm multi lobulated gastric polyp noted in the antrum and pyloric channel with majority of the polyp resected. This was noted to be causing functional gastric outlet obstructio n. Negative pathology. Case discussed with Dr. Gaffney, will consider scheduling repeat EGD at clinic follow up in 3 months. Nausea [id number] R11.0 Improved following gastric polyp resection as this was creating functional gastric outlet obstructio n. Reports only occasional episodes of nausea at this time. Will continue to monitor. Constipation 60231783 K5 9.00 Bowel movements every 4 days. Recommend MiraLax 17 g p.o. daily as well as daily use of OTC fiber supplement s to achieve 1-2 semi-solid bowel movements per day. [id number] Julio C Amaya MD [place] [address] 1 10/05/2022 11:20:12 10/05/2022 11:49:31 Acquired hypothyroidism 832267707 E03.9 Stable. We are awaiting lab work Acute exac erbation of chronic obstructive pulmonary disease 300973162 J44.1 Patient appears stable at this time. He is on multiple medication s. Will continue to monitor. Allergic rhinitis 990023 04 J30.9 Essential hypertension 31621159 I10 stable. Type 2 nilam betes mellitus 61508854 E11.49 Awaiting lab work. labs drawn by Gmini RT AC [id number] Julio C Amaya MD [address] [address] 10/07/2022 14:53:10 10/07/2022 15:27:09 Acute bronchitis 00906372 J20.9 will treat patient with antibiotic s and steroids. I will also give something for the cough. [id number] Julio C Amaya MD [address] [address] 10/20/2022 09:46:04 10/20/2022 12:35:45 Pneumonia 380396608 J18.9 appears to be resolving. Patient follow-up with pulmonolog ist as discussed. [id number] MD grant Solano[address] [address] 11/02/2022 10:45:55 11/02/2022 11:42:40 Acute exacerbation of chronic obstructive pulmonary disease 662005567 J44.1 Patient to continue with current regimen. I am going to put him on prednisone 20 mg daily. He is to follow-up with his pulmonolog ist. I have also walked him over to make an appointmen t with his cardiologi st. Appointmen t was made for November 09 at 2:30 p.m.. Patient may require a cardiology workup to rule out cardiology causes of shortness of breath. [id number] Julio C Amaya MD [facility] [address] [address] 11/20/2022 11:46:44 11/20/2022 12:11:58 Chronic obstructive pulmonary disease 51159812 J44.9 will order oxygen for patient also put him on prednisone 20 mg a day.Walk test performed. Patient's O2 sat was 88%. follow 2 L of oxygen patient's O2 sat increased to 92 patient expresses relief And resolution of shortness of breath Coronary arteriosclerosis 75799781 I25.10 patient has a history of coronary artery disease. He needs a referral to a new cardiologi st. Will refer him to [facility] in [place] per patient request. [id number] Uri Munoz MD [facility] Pulmonolo gy [address] [facility] [place] [address] 12/02/2022 09:37:45 12/02/2022 10:23:25 Pulmonary emphysema 02815142 J43.9 Spirometry done in the office today showed evidence of obstructio n with decrease in FEV1 down to 35% predicted and that was reviewed and discussed with the patient, patient had PFTs done recently at [facility] showing an FEV1 of 44% also.Image s and report of CT of the chest done recently and [facility] showing evidence of emphysema without acute finding and that was reviewed and discussed with the patient.Wi ll check alpha-1 antitrypsi n genotype by buccal mucosal swab in the office today.Will change patient inhaler down to Trelegy 100.Will start patient on Daliresp 500 daily given his recurrent exacerbati ons.Patien t instructed to use his Jasmina on a p.r.n. basis.Rhoda ent is up-to-date on his flu vaccine for this season. Will refer patient to the pulmonary rehab program for further assessment and management . Dyspnea on exertion 6084 5006 R06.09 Patient recommende d to exercise as tolerated and use his Jasmina on a p.r.n. basis. Patient planned to have cardiology evaluation soon to rule out other etiology for his dyspnea. Obesity 556319526 E66.9 Patient recommende d diet and exercise in order to lose weight. Obstructiv e sleep apnea syndrome 67639158 G47.33 Patient instructed to continue with the use of his CPAP and comply with the cleaning instructio ns and supply changes. [id number] Julio C Amaya MD [facility] [address] [place] [address] 12/11/2022 12:02:25 12/15/2022 11:57:35 Respiratory tract congestion and cough 463949873 R05.1 R43.8 Chronic ob structive pulmonary disease 26580662 J44.9 PATIENT WAS RECENTLY SEEN BY PULMONOLOG Y. HE WAS STARTED ON A NEW MEDICATION . I HAVE ADVISED HIM TO PER SEVERE WITH THE MEDICATION S SEE IF IT IMPROVES HIS SYMPTOMS. WILL PUT HIM ON PREDNISONE FOR A SHORT PERIOD OF TIME TO SEE IF THIS DOES NOT ALLEVIATE HIS SYMPTOMS.Roselia Ferrer HAS BEEN ADVISED TO F/U WITH HIS PULMONOLOG IST. [id number] Jaime Castanon [facility] [address] [place] [address] [place] [address] 12/15/2022 14:04:44 12/15/2022 15:21:21 Gastric polyp 31326824 K31.7 Patient doing well from this standpoint . Notes some bloating. Denies nausea, vomiting, abdominal pain or dysphagia. Plan to hold off on EGD at this time. We will arrange 6 month follow up or sooner if symptoms worsen. Continue PPI. [id number] Yomi Kathleen MD [facility] [address] [facility] [place] [address] 03/16/2023 10:52:03 03/17/2023 18:41:07 Acute exacerbation of chronic obstructive pulmonary disease 829466593 J44.1 Acute exacerbati on. Bronchitis . Treat with oral prednisone weaned down from 60 mg. Also Z-Ray. recommend reporting to emergency room for further evaluation if symptoms worsen or no improvemen t in 2 days of treatment. [id number] Julio C Amaya MD [address] [place] [address] 03/25/2023 12:01:38 03/25/2023 12:16:00 Dyspnea 024140537 R06.00 Chronic ob structive pulmonary disease 92424475 J44.9 patient to continue to follow-up with his pulmonolog ist.. Will put him on a course of prednisone until his appointmen t. If his symptoms worsen he has been advised to go to the emergency department . [id number] Uri Munoz MD [facility] Pulmonolo gy [address] [facility] [address] [place] [address] 03/30/2023 09:28:55 03/30/2023 09:50:50 Pulmonary emphysema 10307217 J43.9 Patient instructed to continue with the use of Trelegy 100 daily.Rhoda ent instructed to continue with the use of Daliresp daily.Rhoda ent instructed to use his Jasmina on a p.r.n. basis.Rhoda ent recommende d to return back to the pulmonary rehab program at [facility]. Dyspnea on exertion 6084 5006 R06.09 Patient recommende d to exercise as tolerated and use his Jasmina on a p.r.n. basis. Obstructiv e sleep apnea syndrome 00651093 G47.33 Patient instructed to continue with the use of his CPAP and comply with the cleaning instructio ns and supply changes. Morbid obesity 678718621 E66.01 Patient recommende d diet and exercise in order to lose weight. Refer patient to the bariatric surgery team for further evaluation and management . [id number] Julio C Amaya MD [facility] [address] [place] [address] 04/19/2023 12:13:17 04/19/2023 12:47:33 Acute exacerbation of chronic obstructive pulmonary disease 847045153 J44.1 patient will receive Solu-Medro l and Rocephin here in the office. Has been instructed to continue with his DuoNeb treatments 4 times a day. We have had extensive discussion s regarding the risks and severity of his condition. Patient does agree to go to the emergency department if he is no better. His is present. [id number] Julio C Amaya MD [address] [place] [address] 05/26/2023 11:16:57 05/26/2023 11:48:00 Acute exacerbation of chronic obstructive pulmonary disease 893464192 J44.1 patient was seen in the emergency department at [facility]. He was admitted for COPD exacerbati on. Patient was sent home on antibiotic s and steroids. He states that he is doing better. He is now on oxygen 247 at 3 L a day. pt requests a prescripti on for portable oxygen concentrat Sam put him on prednisone for a further 5 days. I would like to see him back in a week. Type 2 nilam betes mellitus 06555045 E11.9 Patient's fingerstic k blood sugar is 187.pt is waiting for dexcom prescripti on to be filled [id number] Julio C Amaya MD [address] [place] [address] 06/03/2023 15:42:54 06/03/2023 16:29:20 Acute exacerbation of chronic obstructive pulmonary disease 805013814 J44.1 EXACERBATI ON IS RESOLVING. PATIENT TO CONTINUE WITH HIS CURRENT REGIMEN. WILL SEE HIM BACK IN 3 MONTHS. PATIENT STATES THAT HE WOULD LIKE TO GO ON JAIL PREDNISONE THERAPY. HE STATES THAT EVERY TIME HE GOES OFF HIS PREDNISONE HE ENDS UP IN THE HOSPITAL WITH AN ACUTE EXACERBATI ON. WE HAVE HAD EXTENSIVE DISCUSSION S REGARDING THE RISKS OF BEING ON JAIL STEROID MEDICATION S. PATIENT EXPRESSES AN UNDERSTAND ING. WE HAVE DECIDED TO PUT HIM ON A LOW-DOSE OF PREDNISONE FOR A MONTH. HE IS GOING TO DISCUSS THIS WITH HIS PULMONOLOG IST WHEN HE SEES HIM ON THE May. Generalize d anxiety disorder 18123766 F41.1 [id number] Uri Munoz MD [facility] Pulmonolo gy [address] [facility] [place] [address] 06/14/2023 10:55:39 06/14/2023 11:30:54 Pulmonary emphysema 38552669 J43.9 Images and report of CT of the chest done at [facility] were reviewed and discussed with the patient, there is no evidence of acute abnormalit y. Patient instructed to continue with the use of Trelegy 100 daily.Rhoda ent instructed to continue with the use of Daliresp daily.Rhoda ent instructed to use his Jasmina on a p.r.n. basis. Dyspnea on exertion 6084 5006 R06.09 Patient recommende d to exercise as tolerated and use his Jasmina on a p.r.n. basis. Morbid obesity 724858222 E66.01 Patient recommende d diet and exercise in order to lose weight.Reta gilda planned to follow-up with the bariatric surgery team and call them to arrange for that. Obstructiv e sleep apnea syndrome 46742457 G47.33 Patient instructed to continue with the use of his CPAP and comply with the cleaning instructio ns and supply changes. Hypoxemia 112923484 R09. 02 Patient instructed to continue with the use of his oxygen as needed to maintain saturation above 90%.Giulia scar his O2 saturation was 97% at rest on room air. [id number] LUIS A Null [facility] [address] [place] [address] [place] [address] 07/21/2023 14:08:06 07/23/2023 10:05:15 Gastroesophageal reflux disease 891148617 K21.9 will refill his pantoprazo le today. Gastric polyp 04457268 K 31.7 Patient has a history of functional gastric outlet obstructio n secondary to large gastric polyp removed May 2022. Reports worsening nausea, bloating and dyspepsia over the last few months. We will plan for EGD at this time for further evaluation to rule out recurrent polyp formation or other abnormalit y. Patient is scheduled for 08/25/2023 at 12:15 p.m. Abdominal bloating 37794 9008 R14.0 Plan for EGD per above [id number] Yomi Kathleen MD [facility] [address] [place] [address] 08/04/2023 14:24:42 08/04/2023 15:02:41 Cough 53764828 R05.9 testing for influenza and COVID are negative. Acute exac erbation of chronic obstructive pulmonary disease 857800399 J44.1 Acute exacerbati on. Bronchitis . Treat with oral prednisone weaned down from 60 mg. Also Z-Ray. recommend reporting to emergency room for further evaluation if symptoms worsen or no improvemen t in 2 days of treatment. Acute bronchitis 7541665 2 J20.9 Treat with Augmentin and burst of 50 mg prednisone then return to 20 mg daily. [id number] Julio C Amaya MD [address] [place] [address] 08/31/2023 10:37:11 08/31/2023 11:08:00 Type 2 diabetes mellitus 43506170 E11.9 will check patient's A1c today. Acquired hypothyroidism 470731506 E03.9 Will obtain lab work today. Allergic rhinitis 882399 04 J30.9 I will put patient on Sandra. He is already using his Flonase. [id number] Julio C Amaya MD [address] [place] [address] 08/13/2023 14:03:52 08/13/2023 14:51:58 Acute exacerbation of chronic obstructive pulmonary disease 249138078 J44.1 [id number] Julio C Amaya MD [address] [place] [address] 09/27/2023 11:54:09 09/27/2023 12:37:24 Gastrointestinal hemorrhage 54593743 K92.2 Patients occult blood was positive. I have suggested that he go to the emergency department he is refusing to go at this time. His has agreed to take him home they will await the results of the CBC and will decide on a plan of action at that time. [id number] Carol Iqbal NP [facility] [address] [place] [address] [place] [address] 10/06/2023 13:54:33 10/06/2023 15:41:52 Gastric polyp 06127748 K31.7 Large polypoid mass resected in the gastric antrum on EGD 09/15/2023 . Pathology confirmed focal mucosal erosion as well as focal intestinal metaplasia . Symptoms of nausea and vomiting have resolved at this time. Plan to repeat EGD 08/2024 for surveillan ce of gastric intestinal metaplasia . Gastro-eso phageal reflux disease with esophagitis 430133310 K21.00 Continues Protonix 40 mg p.o. b.i.d.. Recommend continued use. Upper gastrointestinal bleeding 33355587 K92.89 Experience d upper GI bleed following large gastric polyp removal. follow-up EGD 09/28/2023 with ulceration at the site of previous large polypectom y site with mild oozing of blood. Hemostasis achieved with hemo spray as well as hemostatic clip. Denies recurrent melena. Plan for CBC today. Will continue to monitor. Patient encouraged to call if he experience s recurrent symptoms. [id number] Julio C Amaya MD [address] [place] [address] 10/19/2023 11:41:18 10/19/2023 12:06:14 Acute bronchitis 52637109 J20.9 PATIENT HAS A HISTORY OF COPD AND BRONCHITIS . HE IS UNDER THE CARE OF A PULMONOLOG IST. I HAVE ADVISED HIM TO FOLLOW-UP WITH HIS PULMONOLOG IST. WILL GIVE HIM ANTIBIOTIC S AND STEROIDS AT THIS TIME. [id number] Yomi Kathleen MD [address] [place] [address] 10/22/2023 11:08:38 10/25/2023 10:36:35 Cough 92528454 R05.9 testing for influenza and COVID are negative. Acute exac erbation of chronic obstructive pulmonary disease 986706608 J44.1 see prescripti ons below Acute bronchitis 1673718 2 J20.9 See prescripti ons Hyperlipidemia 18279453 E78.5 refill Essential hypertension 45949742 I10 refill Anemia 451262267 D64.9 refill Gastroesop hageal reflux disease 637900000 K21.9 refill [id number] Julio C Amaya MD [address] [place] [address] 11/03/2023 15:14:16 11/03/2023 15:47:05 Rib pain 566373215 R07.81 right rib pain and bruising to upper right anterior abdominal wall. This could be from coughing. Will obtain x-rays. Differenti als include pancreatic issues. Patient does report very mild pain Anterior a bdominal wall mass 848681587 R19.09 due to a change in size of this ill-define d mass will refer patient to surgery. [id number] Yomi Kathleen MD [facility] [address] [place] [address] 11/18/2023 14:00:45 11/19/2023 12:56:12 Respiratory tract congestion and cough 684838548 R05.1 Testing is negative. Acute bronchitis 8204008 2 J20.9 See prescripti ons Acute exac erbation of chronic obstructive pulmonary disease 575565105 J44.1 see prescripti ons below [id number] Radha Gatica DPM [facility] [address] [place] [address],[facility] [address] [place] [address] 12/07/2023 09:25:55 12/07/2023 10:44:04 Type 2 diabetes mellitus 46630150 E11.49 Performed/ updated lower extremity neurovascu lar exams today. Discussed importance of diabetic foot care including controllin g blood sugar, monitoring feet daily, applying moisturize r to feet but not between the toes, appropriat e shoe gear, drying well between the toes after bath, and risks associated with soaking feet. Also discussed importance of routine exercise (recommend daily average of 30 minutes), a balanced diet ( consider supplement ation if diet not adequate), and healthy sleep habits. Injury of toenail 323948 000 S99.921A pt denies pain, declines xray. Reports nail was long and he bumped it on something causing it to lift off. Continue local wound care and monitoring . Dressed site with bacitracin ointment and DD. Callosity 010842749 L84 Filed with elis board. Monitor for worsening. Counseled regarding routine maintenanc e. Recommend appropriat e shoe gear with ambulation , even in the home. Consider addition of offloading / padding to reduce recurrence of hyperkerat osis. History of amputation of right lesser toe 9633625140 4899252 Z89.421 L2-4 History of amputation of hallux 544269299 Z89.411 R1 History of amputation of left lesser toe 4901265738 0538392 Z89.422 R2,3 Onychogryphosis 71430253 L60.2 Debrided toenails in thickness and length utilizing nail clippers, mechanical rotary tool, curette and emery board. [id number] Uri Munoz MD [facility] Pulmonolo gy [address] [facility] [place], [place] [address] 12/07/2023 14:23:49 12/07/2023 14:49:10 Pulmonary emphysema 20204022 J43.9 Spirometry done in the office today showed evidence of obstructio n with decrease in FEV1 down to 57% predicted and that was reviewed and discussed patient and his .Patie nt instructed to continue with the use of Trelegy 100 daily.Rhoda ent instructed to continue with the use of Daliresp daily. Apparently patient has been on prednisone 10 mg daily since August, since patient does not have evidence of exacerbati on the present time I instructed him to discontinu e the use of prednisone as it is recommende d to be used only for short duration with the exacerbati ons.Patien t instructed to use his Jasmina on a p.r.n. basis. Dyspnea on exertion 6084 5006 R06.09 Patient recommende d to exercise as tolerated and use his Jasmina on a p.r.n. basis. Morbid obesity 784765015 E66.01 Patient recommende d diet and exercise in order to lose weight. Obstructiv e sleep apnea syndrome 94296151 G47.33 Patient instructed to continue with the use of his CPAP and comply with the cleaning instructio ns and supply changes. Hypoxemia 962357492 R09. 02 Patient instructed to continue with the use of his oxygen as needed to maintain saturation above 90%. Pulmonary sarcoidosis 24 544550 D86.0 Given patient vague history of pulmonary sarcoidosi s as reported by his then will proceed with further workup and check full PFTs with DLCO in addition to CT of the chest without contrast to evaluate mediastina l lymphadeno araseli and pulmonary fibrosis. Immunization advised 310 373746 Z71.9 Patient recommende d to receive his flu and COVID-19 vaccinatio n from his pharmacy. Patient recommende d receive RSV vaccine will send an order to his pharmacy. [id number] Julio C Amaya MD [facility] [address] [place] [address] 12/20/2023 10:22:41 12/20/2023 10:58:07 Uncontrolled type 2 diabetes mellitus 064864439 E11.65 Aneurysm o f thoracic aorta 471958995 I71.20 patient has aortic aneurism. Will refer patient to vascular surgery. Pruritic rash 17304831 L 28.2 patient has been advised to use hydrocorti sone cream. Will prescribe Vistaril and refer him to Dermatolog y. [id number] Carol Iqbal NP [facility] [address] [address] 01/05/2024 13:04:52 01/05/2024 14:19:43 Gastric polyp 52131970 K31.7 Large polypoid mass resected in the gastric antrum on EGD 09/15/2023 . Pathology confirmed focal mucosal erosion as well as focal intestinal metaplasia . Due for repeat EGD 08/2024 for surveillan ce of gastric intestinal metaplasia . Gastro-eso phageal reflux disease with esophagitis 576475819 K21.00 Continues Protonix 40 mg p.o. b.i.d.. Recommend continued use. Melena 6038841 K92.1 Several episodes of melena for the past 3 days. Hx of upper GI bleed following large gastric polyp resection 09/2023. Plan for CBC today. Consider repeat EGD based on results. Case discussed with Dr. Gaffney. [id number] Carol Iqbal NP [facility] [address] [address] 02/09/2024 13:52:05 02/09/2024 14:36:01 Melena 1618223 K92.1 Continued daily episodes of melena since he was previously seen in clinic 01/05/2024 . Labs completed 01/06/2024 hemoglobin 11.8, hematocrit 38. He had labs completed with cardiology 02/02/2024 hemoglobin 12.2, hematocrit 38.1. He is following with cardiology , Dr. Davis, with plans for echocardio gram and nuclear stress test 02/15/24. Will repeat CBC today to monitor. Plan for EGD to evaluate after cardiac clearance has been obtained. Hx of upper GI bleed following large gastric polyp resection 09/2023. Gastric polyp 76459534 K 31.7 Large polypoid mass resected in the gastric antrum on EGD 09/15/2023 . Pathology confirmed focal mucosal erosion as well as focal intestinal metaplasia . Plan for EGD as above. Gastro-eso phageal reflux disease with esophagitis 467044714 K21.00 Recommend Pantoprazo le 40 mg po BID. [id number] Yomi Kathleen MD [address] [place] [address] 02/11/2024 13:51:39 02/11/2024 15:01:46 Acute bronchitis 16492497 J20.9 See prescripti ons . Seek medical care if symptoms become severe Acute exac erbation of chronic obstructive pulmonary disease 009965130 J44.1 see prescripti ons below [id number] Julio C Amaya MD [address] [place] [address] 03/28/2024 12:26:14 03/28/2024 12:38:11 Respiratory tract congestion and cough 475433100 R05.1 R43.8 [id number] Julio C Amaya MD [address] [place] [address] 04/17/2024 15:27:10 04/17/2024 16:17:52 Type 2 diabetes mellitus 57653157 E11.9 patient is requesting a refill on his medication . Localized infection of skin AND/OR subcutaneous tissue 818121004 L08.9 will start patient on Bactrim. Have instructed him to follow-up in 2 days for a recheck. He has been advised to clean area and apply antibioti Acute exac erbation of chronic obstructive pulmonary disease 516749944 J44.1 [id number] Julio C Amaya MD [address] [place] [address] 04/19/2024 15:23:46 04/19/2024 15:36:02 Local infection of wound 61358312 T14.90XD infected wound to forehead appears to be improving. Follow-up in 1 week [id number] Julio C Amaya MD [address] [place] [address] 04/25/2024 14:32:13 04/25/2024 14:44:57 Open wound of scalp 165794519 S01.00XD wound appears to be healing satisfacto rily. Patient has been advised to finish his medication . Will see him as needed [id number] CECE TAPIA NP [address] [place] [address] 05/26/2024 09:04:36 05/26/2024 09:49:56 Cough 60525142 R05.1 negative COVID and flu Acute exac erbation of chronic obstructive pulmonary disease 878581971 J44.1 rescue vs maintenanc e inhaler educationu se of inhalersme dication as prescribed ER if any urgent signs or symptoms arise [id number] Julio C Amaya MD [address] [place] [address] 06/05/2024 12:17:38 06/05/2024 12:52:18 Acute sinusitis 98986092 J01.90 will give patient some steroids as well as some antibiotic s. Has been instructed to complete his dose of antibiotic s. Should he continues to suffer from symptoms he will call us and let us know. [id number] Julio C Amaya MD [address] [place] [address] 09/25/2024 12:09:45 09/25/2024 12:53:08 Acute bronchitis 41789094 J20.9 PATIENT HAS A HISTORY OF COPD AND BRONCHITIS . HE IS UNDER THE CARE OF A PULMONOLOG IST. I HAVE ADVISED HIM TO FOLLOW-UP WITH HIS PULMONOLOG IST. WILL GIVE HIM ANTIBIOTIC S AND STEROIDS AT THIS TIME. [id number] Carol Iqbal NP [facility] [address] [place] [address] 11/08/2024 09:32:38 11/08/2024 10:11:58 Unintentional weight loss 944799999 R63.4 4 month history 25 lb unintentio nal weight loss. Plan for EGD/colono scopy for comprehens herlinda evaluation . He will need cardiac clearance, Dr. Davis and pulmonary, Dr. Foss, prior to procedures . Pt will need PAT testing. Gastric polyp 04780184 K 31.7 Large polypoid mass resected in the gastric antrum on EGD 09/15/2023 . Pathology confirmed focal mucosal erosion as well as focal intestinal metaplasia . Plan for EGD as above to further evaluate. Gastro-eso phageal reflux disease with esophagitis 724965862 K21.00 Continues pantoprazo le 40 mg daily for treatment. Early satiety [id number] R68.81 Recently experienci dory early satiety. Plan to further evaluate as above. [id number] Julio C Amaya MD [facility] [address] [address] 03/21/2025 12:14:22 03/21/2025 12:43:13 Acute exacerbation of chronic obstructive pulmonary disease [id number] J44.1 [id number] have discussed patient's worsening condition with patient and spouse. They state that their pulmonolog ist is castillo eric giving them IM injections for his COPD. Patient has been encouraged to use his oxygen as much as possible. If it worsens he needs to go to the emergency department .I actually tried to call his pulmonolog ist during this visit to get clarificat ion on the plan. I spoke to his office staff who agreed to fax over copies of his reports / visits, however the doctor was unavailabl e. Finding of abdomen [id number] [id number] R19.06 [id number] patient's spouse states that he has been diagnosed with a mass around his esophagus. We can not find any records to confirm this. His most recent EGD and colonoscop y were done on 12/06/2024 and the results on file state that he has polyps. I have advised him to follow-up with a gastroente rologist - Dr Gaffney regarding this mass and follow-up treatment. [id number] Radha Gatica DPM [facility] [address] [place] [address],[facility] [address] [id number] 03/21/2025 14:02:20 03/21/2025 16:06:34 Type 2 diabetes mellitus [id number] E11.49 Performed/ updated lower extremity neurovascu lar exams today.Disc ussed importance of diabetic foot care including controllin g blood sugar, monitoring feet daily, applying moisturize r to feet but not between the toes, appropriat e shoe gear, drying well between the toes after bath, and risks associated with soaking feet. Also discussed importance of routine exercise (recommend daily average of 30 minutes), a balanced diet ( consider supplement ation if diet not adequate), and healthy sleep habits.Reta vo interested in the diabetic shoe program. Patient would medically benefit from diabetic shoes and accommodat herlinda inserts. Patient qualifies for this program according to Medicare guidelines . Style is selected and size measured today. See order form for details.Cu stom accommodat herlinda inserts are appropriat e for this patient secondary to diabetic neuropathy and foot abnormalit y. Patient was casted in biofoam today. Office to send impression s to Dr. Sana glaser for fabricatio n of custom accommodat herlinda inserts. Office to obtain prior authorizat ion from [employer] prior to sending impression s to the lab. Callosity [id number] L95 Filed with elis braun. Monitor for worsening. Counseled regarding routine maintenanc e. Recommend appropriat e shoe gear with ambulation , even in the home. Onychogryphosis [id number] L60.2 Debrided toenails in thickness and length. Ulcer of right foot [id number] L97.512 [id number] Radiograph s performed today. Findings reviewed and discussed with patient.De brided wound site today. Debridemen t of devitalize d tissue is medically beneficial to help promote wound healing and decrease local infection risk. Wound site with overall improved appearance post debridemen t of devitalize d tissue.Cou nseled regarding daily wound care. Monitor for worsening. Discussed importance of reduced weightbear ing to wound site. Dispensed offloading ulcer shoe for use when must ambulate.A erobic and anaerobic wound cultures were obtained today. Swabs sent to [facility] for culture and sensitivit y testing.Wi order home dressing supplies to consist of silver alginate, gauze and tape for daily dressing changes. Abnormal gait [id number] R 26.89 Dispensed ulcer shoe with offloading peg type insert today with instructio ns for applicatio n and use. This medical policy specialist is medically necessary to treat this patient's condition. A copy of [employer] supplier standards was dispensed with this device and our office return policy was discussed. Patient admits comfort with device in verbalizes understand ing of applicatio n and use. Patient/gu joaquinor signed for this medical policy specialist. History of amputation of foot [id number] Z89.429 Z89.422 Z89.421 Z89.411 [id number] Complete R1, partial R2,3. Partial L2-4 [id number] Radha Gatica DPM [facility] [address] [place] [address] [address] [id number] 04/06/2025 10:39:41 04/06/2025 11:22:43 Ulcer of right foot 722597613 L97.512 [id number] Debrided wound site today. Debridemen t of devitalize d tissue is medically beneficial to help promote wound healing and decrease local infection risk. Wound site with overall improved appearance post debridemen t of devitalize d tissue.Cou nseled regarding daily wound care. Monitor for worsening. Discussed importance of reduced weightbear ing to wound site. Dispensed offloading ulcer shoe for use when must ambulate. History of amputation of foot [id number] Z89.429 Z89.422 Z89.421 Z89.411 [id number] Complete R1, partial R2,3. Partial L2-4 Type 2 nilam betes mellitus [id number] E11.49 awaiting diabetic shoes and new custom offloading inserts Abnormal gait 03044784 R 26.89 Continue with ulcer shoe. Cellulitis of right foot [id number] L03.115 [id number] improved, monitor for recurrence [id number] Julio C Amaya MD [facility] [address] [facility] [address] [address] [id number] 05/17/2025 10:54:26 05/17/2025 11:39:43 History of sepsis [id number] 73554 Z86.19 [id number] patient appears to be doing well on his IV antibiotic s. He has been advised to continue to follow-up with infectious diseases. Should he require any acute follow-up he should contact the clinic other than that will see him back in about 6 months. Type 2 nilam betes mellitus 34291295 E11.49 Patient's diabetes is being managed by endocrinol ogy. Patient's will inform the his endocrinol ogist of the changes in his metformin done by his infectious disease specialist . History of amputation of foot 331354474 Z89.429 [id number] advised to continue to f/u with collar baster jumpbasting [id number] Julio C Amaya MD [facility] [address] [facility] [address] [address] [address] 07/04/2025 14:39:33 07/04/2025 15:30:33 Wheezing [id number] R06.2 [id number] patient's son is present. We have had extensive discussion s regarding causes of asthma and wheezing. Patient states that he does feel a lot better when he gets steroids. He states that it improves his quality of life. We have discussed perhaps putting him on long-term steroids. I will defer to his pulmonolog ist. Patient tells me he will discuss this with his pulmonolog ist at his next appointmen t, in the meantime will start him on steroids and give him some IM steroids. Has been advised to continue to use his inhalers as discussed. Health Concerns Section Related Observation LastModified by Organization Detai ls LastModified Time None Recorded Concern Status LastModified by Organization Details LastModified Time None Recorded Advance Directives Directive N: Payers Insurance Date Sequence Insurance Name Policy Number Policy Lopez Covered Member ID Lopez Member ID Guarantor Name 07/04/2025 2 [employer] BENEFIT PLAN Rogelio Stover Earlydareke [id number] Rogelio Stover [employer] 07/04/2025 1 [place] Rogelio Stover Earlywine [id number] Rogelio Stover Earlywine 04/23/2021 [place] A - [facility] (MEDICARE) Rogelio Stover Earlywine [id number] Rogelio Stover [employer]wine 07/04/2025 [employer] - [employer] ASSIGNED (MEDICARE DME REGION B) Rogelio Stover Earlywine [id number] Rogelio Stover Earlywine 11/08/2021 2 [employer] HEALTH BENEFIT PLAN (MEDICARE SUPPLEMENT) Rogelio Stover Earlydareke Rogelio Stover Earlywine 07/04/2025 [place] [email or web address] - [facility] Rogelio Stover Earlywine [id number] Rogelio Stover Earlywine 07/04/2025 [place] - [place]ICARE-[place] - PART A - [facility] (MEDICARE) Rogelio Stover Earlywine [id number] Rogelio Stover Earlywine 10/16/2021 1 INTERFACE REVIEW REQUIRED Rogelio Stover Earlywine [id number] Rogelio Stover Earlydareke Notes Date Note Type Note Provider Name and Address Organization Details Recorded Time 03/21/2025 text/html Patient presents with his son David for diabetic foot care and treatment of a wound on the bottom of his right foot. He states his toenails are thick and long and needs to be trimmed. He requests assistance with this.Patient also reports the chronic callous area on the bottom of his right foot is now a wound. He states it has been draining for a couple weeks. He has been soaking his foot. He denies any fever, chills, or nausea. PCP: Selina PCP visit: 03/21/25Last BS: 166mg/dl Radha Gatica DPM [address] [facility], [address], [place], [address], [facility] [place] 03/26/2025 16:57:19 03/21/2025 text/html ROS as noted in the HPI patient presents today complaining of recurrent shortness of breath and wheezing. Patient has a history of COPD. He is currently on oxygen 247. Patient is already seen a ocular care aide as well as a land management supervisor. He is on multiple medications. He is concerned about a worsening of his condition. Julio C Amaya MD [address] [place] [address], [phone], [facility] [place] 03/21/2025 12:48:02 04/06/2025 text/html ROS as noted in the HPI Patient presents for follow up for wound on the bottom of his right foot. He thinks the wound site has improved some in appearance although not resolved. He has completed both oral antibiotics as directed (doxycycline and amoxicillin). He reports he still has not received the silver alginate dressings yet. The pharmacy is having to order it. Patient's is dressing with hydrofera and neosporin. He denies nausea, fever or chills. PCP: Selina PCP visit: 04/11Las BS: 159mg/dl Radha Gatica DPM [address], [address], [place], [address], [facility] [place] 04/06/2025 12:42:37 05/17/2025 text/html ROS as noted in the HPI Patient presents today to follow-up from hospital visit. Patient was admitted secondary to sepsis and MRSA. He was transferred to [facility] from [facility] and had a 2nd toe amputation done. Patient was discharged from the hospital on 05/07. Appears to be stable. He states that due to his MRSA in his bones he is on IV antibiotics. And he is seeing Infectious diseases. His metformin has been stopped. Julio C Amaya MD [address] [place] [address], [phone], [facility] [place] 05/17/2025 11:41:34 07/04/2025 text/html ROS as noted in the HPI Patient presents today complaining of a three-week history of worsening wheezing. He is having to use his oxygen 247. Patient has a history of chronic COPD. He is actually under the care of a land management supervisor. He states that he was told at the time that he is waiting to be approved for an asthma shot. Julio C Amaya MD [address] [place] [address], [phone], [facility] [place] 07/04/2025 15:23:39
--- OUTSIDE RECORDS SUMMARY | 2025-07-18 08:03 | XMS_ITS | Continuity of Care Document ---
Author Organization [facility] Address [address] [place] [address] Care Team Providers Care Maintenance Construction Helper Name Role Phone CAROL IQBAL Well Head Pumper [phone] [facility] Primary Care Provider TRENT AMAYA Primary Care Provider [phone] Assessment No assessment recorded. Plan of Treatment Reminders Order Date Submit Date Provider Last Modified By Organization Details Last Modified Time Details Appointments None recorded. Lab None recorded. Referral None recorded. Procedures None recorded. Surgeries None recorded. Imaging XR, chest, 2 view 2024 025 [facility] ([facility]), [address] [place] [address] [place], [address], 5 00:21:56 Medication Orders triamcinolo ne acetonide 40 mg/mL suspension for injection 2024 025 tpardini Not available 5 15:22:09 dexamethaso ne sodium phosphate 4 mg/mL injection solution 2024 025 tpardini Not available 5 15:23:35 prednisone 50 mg tablet 2024 025 [facility], [address] [place] [address], [id number], 5 05:02:18 Patient TargetsNo targets recorded. Patient InstructionsNo instructions recorded. Reason for Referral None Reported. Results Created Date Observation Date Name Description Value Unit Range Abnormal Flag Note LastModifiedBy Organization Detail LastModifiedTime 07/05/2007/04/2025 XR, chest , 2 view [facility] [address] [facility] [place] [address] Phone: Fax: Name: LUKE PEREZ Exam Date: : 950 Age 75 years Gender : M Access ion: [id number] Physic ethan: KIRILL AMAYA [facility] Facili ty HSV: Outpat ient Exam: [...] ARHWRS 15PRR Dictat ed By: MICHELLE JOHNSON Transc ribed By: Transc ribed On: 5:54 PM Electr onical ly signed by: MICHELLE JOHNSON Y [facility] you [facility] Legall y authen ticate d by LITZY Kong MD 2024-07-04 17:54: 56 CC'ed Logic: Orderi ng Provid er: JOSE LUIS HOYOS CC Provid er: JOSE LUIS HOYOS Attend ing Provid er: JOSE LUIS HOYOS Referr ing Provid er: JOSE LUIS HOYOS Admitt ing Provid er: JOSE LUIS HOYOS [facility] (Radiology) [address] [place], [address], 07/05/2025 08:59:12 Result Notes None recorded. Problems Name Problem SNOMED Code Status Onset Date Resolution Date Notes Provider Name and Address Organization Details Recorded Time Patient encounter status 150262044 Active Rossana [place] [facility] - & 5 12:26:35 Peripheral vascular disorder due to diabetes mellitus 074888584 Active Ross[place] & [place] 5 12:26:35 Aneurysm of ascending aorta 716691502 Active Ross[place] [place] & [place] 5 12:26:35 Laboratory test result abnormal 498350424 [place] 4 15:24:19 Requires vaccinatio n 409718464 [place] 4 15:24:20 Dyspnea 250496357 [place] 4 15:24:19 Exacerbati on of moderate persistent asthma 648034953 [place] 4 15:24:20 Acquired hypothyroi dism 189405741 [place] 4 15:24:19 Diabetic foot 888243769 [place] 4 15:24:19 Uncomplica kelvin moderate persistent asthma 756389057 [place] & [place] 4 15:24:20 Amputated little toe 087443709 [place] 4 15:24:19 Esophageal dysphagia 29362963 Active [place] 4 15:24:19 Mixed anxiety and depressive disorder 526857929 Active Ross[place] & [place] 4 15:24:19 Neoplasm of uncertain behavior of body of stomach 13760981 Active Ross[place] & [place] 4 15:24:20 Sarcoidosi s 28219978 Active [place] 4 15:24:19 Gastritis 5681993 Active Ross[place] 4 15:24:20 Peripheral neuropathy due to type 2 diabetes mellitus 0856774024083 Active [place] & [place] 4 15:24:19 Conduction disorder of the heart 92528703 [place] 4 15:24:20 Annual wellness visit Active [place] & [place] 4 15:24:20 Acute pancreatit is 683538246 [place] & 4 15:24:19 Generalize d anxiety disorder 91855337 [place] 4 15:24:19 Chronic diarrhea 824647216 [place] 4 15:24:19 Neoplasm of uncertain behavior of skin of chest 66731149 Active Ross[place] 4 15:24:20 Malaise and fatigue 210816330 Active Ross[place] & [place] 4 15:24:19 Chronic ulcer of foot 517778073 [place] 4 15:24:20 Carotid artery stenosis 60949532 Active [place] 4 15:24:20 Basal cell carcinoma of anterior chest 790676097 [place] 4 15:24:19 Cerebrovas cular disease 47973609 Active [place] 4 15:24:20 Pyloric obstructio n 733515964 [place] 4 15:24:19 Dysphagia 28733279 [place] 4 15:24:19 Coronary arterioscl erosis 09175597 Active [place] 4 15:24:20 Neuropathy due to diabetes mellitus 369454657 [place] 4 15:24:19 Moderate chronic obstructiv e pulmonary disease 958033573 [place] 4 15:24:19 Panic disorder 913738091 Active [place]aan [place] 4 15:24:19 Essential hypertensi on 80963227 Active [place] 4 15:24:20 Amputated big toe 560767806 [place] & 4 15:24:19 Acute asthma 769964084 [place] 4 15:24:19 Allergic rhinitis 00183664 [place] 4 15:24:20 Prostate specific antigen measuremen t Active [place]ana [place] & [place] 4 15:24:20 Type 2 diabetes mellitus 30200211 Active Ross[place] [facility] [place] [facility] & [place] 4 15:24:20 Thyroid hormone tests outside reference range 904986985 [place] [facility] & [place] 4 15:24:19 Hiatal hernia 73494518 Active [place] [facility] & [place] 4 15:24:20 Long-term current use of insulin 486621309 [place] [facility] & 4 15:24:20 History of amputation of foot 012935593 Active Ross[place] [facility] [place] [facility] & 4 15:24:20 Morbid obesity 885855546 Active Ross[place] [facility] & [place] 4 15:24:19 Coronary atheroscle rosis 246769637 Active [place] [facility] & [place] 4 15:24:20 Fatigue 18469691 Active [place] [facility] [facility] & [place] 4 15:24:20 Nausea 225053488 Active [place] [facility] & [place] 4 15:24:19 Peptic ulcer 47398947 Active [place] [facility] & [place] 4 15:24:19 Hyperlipid emia 54437117 Active [place] [facility] & [place] 4 15:24:20 Lipoma of abdominal wall 262232010 Active [place] [facility] & 4 15:24:19 Acute exacerbati on of chronic obstructiv e pulmonary disease 911780605 [place] & 4 15:24:19 Obstructiv e sleep apnea syndrome 93936153 [place] & 4 15:24:20 Diarrhea 64576283 Active [place] & 4 15:24:20 Hypokalemi a 83841182 [place] & 4 15:24:20 Gastric polyp 87852889 [place] & 4 15:24:20 Mild intermitte nt asthma 964353198 [place] & 4 15:24:19 Hypothyroi dism 35031865 Active [place] & 4 15:24:19 Paresthesi a of hand 949137222 [place] & 4 15:24:19 Constipati on 15423405 Active [place] 4 15:24:19 At increased risk for falls 946828664 [place] & 4 15:24:19 Chronic obstructiv e pulmonary disease 33958623 Active [place] & 4 15:24:19 Color blindness 942315722 [place] & 4 15:24:19 Asthma 725599234 Active Rsosana [place] & 4 15:24:19 High frequency deafness 528604112 Active [place] 4 15:24:19 Abdominal aortic aneurysm 570218032 [place] 4 15:24:19 Occlusion of left vertebral artery 4639156091341 02 Active [place] & 4 15:24:19 Hypotestos teronism 5237060877709 [place] & 4 15:24:19 Hypertensi ve disorder 78544040 [place] & 4 15:24:19 Simple obesity 789631486 Active [place] & 4 15:24:19 History of cholecyste ctomy 231313406 [place] & 4 15:24:19 Osteomyeli tis of forefoot 480089505 [place] & 4 15:24:20 Pancreatit is 48084924 Active [place] & 4 15:24:20 Bilateral stenosis of carotid arteries 518014231 [place] & 4 15:24:20 Erectile dysfunctio n 379440650 [place] & 4 15:24:20 Anemia 200353616 [place] 4 15:22:49 Pyloric ulcer 61845744 Active [place] & [place] 4 15:22:49 Obese 968572254 Active [place] & [place] 4 15:22:49 Gastrointe stinal hemorrhage 46574712 Active [place] & [place] 4 15:22:50 Pulmonary emphysema 32882583 Active 2022 Ross[place] & [place] 4 15:24:20 Dyspnea on exertion 22271115 Active 2022 [place] & [place] 4 15:24:20 Obesity 085807829 Active 2022 [place] & [place] 4 15:24:19 Hypoxemia 256483842 Active 2022 Ross[place] 4 15:24:19 Gastro-eso phageal reflux disease with esophagiti s 552317597 Active 2022 Ross[place] [facility] 4 15:24:19 Upper gastrointe stinal bleeding 17816751 Active 2022 Ross[place] 4 15:24:19 Pulmonary sarcoidosi s 57085821 Active 2023 Uri Munoz MD [address] [facility], [place], [address] , [place] [facility] [place] & [place] 4 14:51:26 Melena 5709003 Active 2023 Carol Iqbal NP [address] [place] [address], [address], [place], [address] , [place] [facility] - [place] & [place] 4 14:14:17 Complicati on due to diabetes mellitus 36465959 Active 2023 Trent Amaya MD [address], [place], [address] , [place] [facility] - [place] & [place] 4 16:06:17 Unintentio nal weight loss 196990616 Active 2024 Carol Iqbal NP [address], [address], [place], [address] , [place] [facility] - [place] & [place] 5 11:44:25 Early satiety 029968055 Active 2024 Carol Iqbal NP [address], [address], [place], [address] , [place] [facility] - [place] & [place] 5 11:50:53 Notes:Some problems listed i n Document: #[id number] could not be added to this patient's chart. Please review this document and add these problems to the patient's chart manually as needed. Problem Notes None recorded. Procedures Surgical History Date Name Laterality Status Provider Name and Address Organization Details Recorded Time 04/06 Ulcer Debridement completed Radha Gatica DPM [address], [address], [place], [address], [place] - [facility] - [place] & [place] 5 12:39:05 03/21 Ulcer Debridement completed Radha Gatica DPM [address] [facility], [address], [place], [address], [place] [facility] - [place] & [place] 5 16:00:47 03/21 Nail Debridement (1-5) completed Marianne Noguera [place] - [facility] - [place] & [place] 5 14:58:27 12/06 esophagogastroduodenoscopy completed Axel Ibarra [place] - [facility] - [place] & [place] 5 18:39:58 12/06 Colonoscopy completed Gabby TERAN - [facility] - [place] & [place] 5 18:40:18 10/18 Other completed Rossana Lawrence [place] [facility] - [place] & [place] 5 14:55:24 12/07 Nail Debridement (1-5) completed Marianne Noguera [place] [facility] - [place] & [place] 4 10:38:23 10/18 Cardiovascular Surgery completed Lesley Raintle [place] - [facility] - [place] & [place] 4 13:01:08 09/28 esophagogastroduodenoscopy completed Axel [place]barra [place] - [place] & [place] 3 11:15:56 09/15 esophagogastroduodenoscopy completed Axel [place]barra [place] & [place] 3 11:15:51 09/04 Nail Debridement (1-5) completed Stephani Somers [place] [facility] - [place] & [place] 2 11:38:33 09/04 Debridement Corns/Callouses 2-4 completed Radha Gatica DPM [address] [place] [address], [address], [place], [address] [place] - [facility] - [place] & [place] 2 14:34:15 10/18 Head or Neck Surgery completed Rita Guerra [place] - [place] & [place] 2 09:53:56 10/18 Other completed Rossana [place] & [place] 2 14:59:52 Other completed Rita Charlie [place] & [place] 2 09:53:56 cholecystectomy completed Nicole [place] & [place] 2 11:20:02 total replacement of left knee joint completed Sena [place]her [place] - [place] & [place] 2 11:20:39 amputation of right great toe completed Sena Mosher [place] [facility] [place] & [place] 2 11:21:17 Imaging Results None recorded. Procedure Notes None recorded. Medical Equipment None Reported. Allergies Allergen ID Allergen Name Allergen Category Reaction Reaction Severity Criticality Documentation Date Start Date Code Code System Note Provider Name and Address Organization Details Recorded Time 568677 levofloxa sofi medicatio n itching rash moderate moderate Not available 11/03/2023 24856 [facility] [place] 5 10:46:08 89860 Levaquin medicatio n Not available Not available Not available 07/03/2022 80344 2 RxNorm PARUL [facility] & [place] 2 11:10:01 Medications Name Sig Start Date [...] TAKE 1 TABLET BY MOUTH EVERY DAY 07/03 completed Not Available Not Available Not [...] Available Not Available Not Available Dexcom G6 Rcis 06/01 completed Not Available Not Available Not Available BD Elis 2nd Gen Pen Needle 32 gauge x 32 TEST FOUR TIMES DAILY active Not Available [...] Details Last Updated DateTime 5 177.8 cm 36.2 kg/m2 133889 g 97.3 [degF] 91 % 91 % 3 L/min 83 /min 14 /min 139/70 mm[Hg] Rossana Melinda [facility] & [place] 5 14:54:54 Social History Question Answer Notes LastModified by Organizat ion Details LastModified Time Tobacco Smoking Status Never Smoker Sena Mosher [facility], [facility] & [place] 07/03/2022 11:05:04 Do You Have An Advance Directive? No [email or web address] Information not available 07/03/2022 Are You Blind Or Do You Have Difficulty Seeing? Yes Information not available 08/05/2022 What Is Your Level Of Caffeine Consumption? Occasional Information not available 12/07/2023 What Was The Date Of Your Most Recent Tobacco Screening? 04/03/2025 [email or web address] Information not available 07/04/2025 Are You Passively Exposed To Smoke? No Information not available 07/03/2022 How Much Tobacco Do You Smoke? No [email or web address] Information not available 05/27/2023 Has Tobacco Cessation Counseling Been Provided? No Information not available 12/07/2023 How Many Years Have You Smoked Tobacco? 0 [email or web address] Information not available 06/14/2023 Sex: Unknown Functional Status Question Answer Note LastModified by Organizat ion Details LastModified Time Do you use any illicit or recreational drugs? No [email or web address] Information not available 07/03/2022 What is your level of alcohol consumption? Moderate [email or web address] Information not available 07/03/2022 Do you or have you ever used smokeless tobacco? Currently chews tobacco [email or web address] Information not available 07/03/2022 What is your exercise level? None [email or web address] Information not available 07/03/2022 Mental Status Question Answer Note LastModified by Organization D etails LastModified Time Do you feel stressed (tense, restless, nervous, or anxious, or unable to sleep at night)? [id number] Information not available 08/05/2022 Family History Relationship Description Onset Age of this Age Resolved Age Notes LastModified by Organization Details LastModified Time Mother Malignant neoplasm of pancreatic duct [email or web address] Not available 2024 14:40:13 Mother Diabetes mellitus [email or web address] Not available 2024 14:40:13 Mother Hypertensive disorder [email or web address] Not available 2024 10:47:47 Father Malignant neoplasm of lung [email or web address] Not available 2024 14:40:13 Father Hypertensive disorder [email or web address] Not available 2024 10:47:10 Father Kidney disease Not available 2024 10:47:22 Medical History Condition Response Coronary Artery Disease N Gout N Other N Blood Diseases N Kidney Stones N Hyperthyroidism N Blood Transfusion N Breast Cancer N COPD Y Depression N Lung Disease [...] Problems Y GI Problems N ADD/ADHD N Eating Disorder N Skin Problems N Anemia N Constipation N Heart Attack ([place]) Y Mental Illness N Diabetes Y Ovarian Cancer N Bedwetting N Seizures/Epilepsy N Tuberculosis N Eczema N Abuse/Domestic Violence N Diverticulitis N Asthma N Reflux/GERD N Hepatitis N Heart Disease Y Pulmonary Embolism N Chronic Ear Infections N Pre-Eclampsia N Hypertension Y Chicken Pox N Autism Spectrum Disorder (ASD) N Osteoporosis N Thrombophilias N Immunizations Vaccine Type Date Status Note Provider Nam e and Address Organization Details Recorded Time pneumococcal polysaccharide PPV23 6 completed Not Available [facility] 12/03/2023 04:54:19 Influenza, adjuvanted, trivalent, PF 8 completed Not Available [facility] 10/04/2023 22:11:45 Tdap 9 completed Not Available [facility] 10/04/2023 22:11:45 Influenza, high-dose, trivalent, PF 1 completed Not Available [facility] 12/03/2023 04:54:19 Pneumococcal conjugate PCV 13 8 completed Not Available [facility] 12/03/2023 04:54:19 Influenza, split virus, quadrivalent, preservative 7 completed Not Available [facility] 12/03/2023 04:54:19 Td (adult), 5 Lf tetanus toxoid, preservative free, adsorbed 6 completed Not Available [facility] 12/03/2023 04:54:19 zoster live 1 completed Not Available [facility] 12/03/2023 04:54:19 Td (adult), 5 Lf tetanus toxoid, preservative free, adsorbed 1 completed Not Available [facility] 12/03/2023 04:54:19 COVID-19, mRNA, LNP-S, PF, 100 mcg/0.5mL dose or 50 mcg/0.25mL dose 1 completed Not Available [facility] 10/04/2023 22:11:45 COVID-19, mRNA, LNP-S, PF, 100 mcg/0.5mL dose or 50 mcg/0.25mL dose 1 completed Not Available [facility] 10/04/2023 22:11:45 Hep A, adult 8 completed Not Available [facility] 10/04/2023 22:11:45 Influenza, adjuvanted, trivalent, PF 8 completed [facility] 12/[facility]/2023 04:54:19 Past Encounters Encounter ID Performer Location Encounter Start Date Encounter Closed Date Diagnosis/Indication Diagnosis SNOMED-CT Code Diagnosis ICD10 Code Diagnosis IMO Codes Diagnosis Note [id number] Trent Amaya MD [address] [place] [address] 07/04/2025 14:39:33 07/04/2025 15:30:33 Wheezing [id number] R06.2 [id number] patient's son is present. We have had [...] by Organization Details LastModified Time None Recorded Payers Encounter Date Sequence Insurance Name Policy Number Policy Lopez Covered Member ID Lopez Member ID Guarantor Name 07/04/2025 2 [employer] Luke Cummings [id number] Luke Cummings 07/04/2025 1 [place] Luke Cummings [id number] Luke Cummings Notes Date Note Type Note Provider Name and Address Organization Details Recorded Time 07/04/2025 text/html ROS as noted in the HPI Patient presents today complaining of a three-week history of worsening wheezing. He is having to use his oxygen 247. Patient has a history of chronic COPD. He is actually under the care of a paper supervisor. He states that he was told at the time that he is waiting to be approved for an asthma shot. Trent Amaya MD [address] [facility], [place], [address], [facility] - [place] & [place] 07/04/2025 15:23:39
--- OUTSIDE RECORDS SUMMARY | 2025-07-18 08:03 | XMS_ITS | Encounter Summary ---
Author Organization [facility] Address [address] [place] [address] Care Team Providers Care Electronic Integrated Systems Mechanic Name Role Phone Trent Guaman MD Primary Care Provider [phone] Encounter Details Date Type Department Care Team (Latest Contact Info) Description 06/21/2025 Travel Social History Tobacco Use Types Packs/Day Years [...] Description 10/22/2025 3:45 PM EST Office Visit [facility] [address] [address] Lee Palacios MD [address] [address] documented as of this encounter Visit Diagnoses Not on filedocumented in this encounter Care Teams Electronic Integrated Systems Mechanic Relationship Specialty Start Date End Date Trent Guaman MD [address] [place] [address] PCP - General Emergency Medicine 09/14/23 documented as of this encounter
--- OUTSIDE RECORDS SUMMARY | 2025-07-18 08:03 | XMS_ITS | Encounter Summary ---
Author Organization [facility] Address [address] [place] [address] Care Team Providers Care Director Life Sales Name Role Phone Trent Guaman MD Primary Care Provider [phone] Encounter Details Date Type Department Care Team (Latest Contact Info) Description 06/27/2025 Travel Social History Tobacco Use Types Packs/Day [...] Description 10/22/2025 3:45 PM EST Office Visit [facility] END[facility] [address] [address] Lee Palacios MD [address] [address] documented as of this encounter Visit Diagnoses Not on filedocumented in this encounter Care Teams Director Life Sales Relationship Specialty Start Date End Date Trent Guaman MD [address] [place] [address] PCP - General Emergency Medicine 09/14/23 documented as of this encounter
--- OUTSIDE RECORDS SUMMARY | 2025-07-18 08:03 | XMS_ITS | Clinical Summary ---
Author Organization [facility] Address [address] [place] [address] Care Team Providers Care Barrel Lapper Name Role Phone Yoshi Colin MD Primary Care Provider [phone] Jake Magana MD Unavailable [phone] Allergies Active Allergy Reactions Criticality Noted Date Comments Levofloxacin Itching,Rash Medium 07/17/2022 Medications ProAir HFA 108 (90 Base) MCG/ACT inhaler Inhale if needed. 1 Active aspirin 325 MG EC tablet Take 325 mg by mouth 1 (one) time each day. 1 Active atorvastatin (Lipitor) 40 MG tablet Take 40 mg by mouth every night. 1 Active benzonatate (Tessalon) 200 MG capsule TAKE 1 CAPSULE BY MOUTH THREE TIMES DAILY FOR 10 DAYS 1 Active busPIRone (Buspar) 7.5 MG tablet Take 7.5 mg by mouth 2 (two) times a day. 1 Active carvedilol (Coreg) 12.5 MG tablet Take 12.5 mg by mouth 2 (two) times a day with meals. 1 Active cetirizine (ZyrTEC) 10 MG tablet Take 10 mg by mouth if needed. 1 Active clopidogrel (Plavix) 75 MG tablet Take 75 mg by mouth 1 (one) time each day. 1 Active felodipine ER (Plendil) 10 MG 24 hr tablet Take 10 mg by mouth 1 (one) time each day. 8 Active Trelegy Ellipta 100-62.5-25 MCG/INH aerosol powder Inhale 1 application 1 (one) time each day. 1 Active hydroCHLOROthia zide (HYDRODiuril) 25 MG tablet Take 25 mg by mouth 1 (one) time each day. 1 Active Basaglar KwikPen 100 UNIT/ML injection Inject 40 Units under the skin every night. 1 Active HumaLOG KWIKPEN 100 UNIT/ML injection Inject 16 Units under the skin 3 (three) times a day with meals. 1 Active BD Pen Needle Elis 2nd Gen 32G X 4 MM misc 4 (four) times a day. for testing 1 Active Synthroid 100 MCG tablet Take 100 mcg by mouth 1 (one) time each day. 1 Active losartan (Cozaar) 100 MG tablet Take 100 mg by mouth 1 (one) time each day. 2 Active metFORMIN XR (Glucophage-XR) 500 MG 24 hr tablet Take 1,000 mg by mouth 2 (two) times a day. 8 Active montelukast (Singulair) 10 MG tablet Take 10 mg by mouth every night. 8 Active pantoprazole (Protonix) 40 MG EC tablet Take 40 mg by mouth 1 (one) time each day. 8 Active venlafaxine XR (Effoxor-XR) 150 MG 24 hr capsule Take 150 mg by mouth 1 (one) time each day. 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 Alcohol Use Standard Drinks/Week Comments Not Currently 0 (1 standard drink = 0.6 oz pure alcohol) Alcoholic Drinks/day: Occasional alcohol use Sex and Gender Information Value Date Recorded Sex Assigned at Not on file Legal Sex Male 6:55 PM EDT Gender Identity Not on file Sexual Orientation Not on file Last Filed Vital Signs Vital Sign Reading Time Taken Comments Blood Pressure 107/62 07/24/2022 3:30 PM EDT Pulse 72 07/24/2022 3:30 PM EDT Temperature 36.4 C (97.6 F) 07/24/2022 3:30 PM EDT Respiratory Rate 25 07/24/2022 3:30 PM EDT Oxygen Saturation 93% 07/24/2022 3:30 PM EDT Inhaled Oxygen Concentration - - Weight 122 kg (268 lb 11.9 oz) 07/24/2022 1:15 P M EDT Height 177.8 cm (5' 10 ) 07/24/2022 1:15 PM EDT Body Mass Index 38.56 07/24/2022 1:15 PM EDT Plan of Treatment Health Maintenance Due Date Last Done Comments [facility]-Depression Screening 1950 [facility]-Medicare Annual Wellness (AWV) 1950 [facility]-Infant/Child/Adol SDOH Screenings 1950 [facility]- SDOH Screenings 1968 [facility]-Adult SDOH Screenings 1968 [facility]-Pneumococcal Vaccine: 50 + Years (1 of 2 - PCV) 1969 [facility]-Zoster Vaccines (1 of 2) 1969 CT Colonography 1995 Colonoscopy 1995 FIT-DNA 1995 FIT 1995 FOBT 1995 Sigmoidoscopy 1995 [facility]-Colorectal Cancer Screening 1995 [id number] Vaccine (3 - Moderna risk series) 02/28/2021 01/31/2021, 12/10/2020 [facility]-RSV Vaccine: 60+ Years o r (1 - 1-dose 75+ series) 2025 [facility]-Influenza Vaccine (#1) 2025 09/13/2018 [facility]-DTaP,Tdap,and Td Vaccine s (2 - Td or Tdap) 01/28/2029 01/28/2019 [facility]-Hepatitis A Vaccines Aged Out 09/22/2018 No longer eligible based on patient's age to complete this topic [facility]-Hepatitis C Screening Completed 02/20/2019 [facility]-Obesity Intervention Completed 022, 07/17/2022 HPV Vaccines Aged Out No longer eligi ble based on patient's age to complete this topic [facility]-HIB Vaccines Aged Out No longer e ligible based on patient's age to complete this topic [facility]-IPV Vaccines Aged Out No longer e ligible based on patient's age to complete this topic [facility]-Rotavirus Vaccines Aged Out No lo nger eligible based on patient's age to complete this topic Procedures Procedure Name Priority Date/Time Associated Diagnosis Comments HEPATITIS C ANTIBODY - ED W/REFLEX TO HCV QUANT PCR Routine 02/20/2019 11:49 AM EDT from Last 3 Months or Most Recently Relevant to Health Maintenance Results * Ena Hepatitis C Antibody (02/20/2019 11:49 AM EDT) Ena Hepatitis C Ab NEGATIVE Reference Range: Negative SUNQUEST 02/20/2019 11:4 9 AM EDT 02/20/2019 12:22 PM EDT Yoshi Cohen MD LAB BLOOD ORDERABLES Rochelle mantilla Result SUNQUEST from Last 3 Months or Most Recently Relevant to Health Maintenance Insurance MEDICARE GENERIC [employer]CIAL Care Teams Barrel Lapper Relationship Specialty Start Date End Date Yoshi Colin MD [address] [place] [id number] PCP - General 10/24/21 Jake Magana MD [address] [phone] Surgeon Neurosurgery 10/24/21
[2025-07-18 08:37] LABS: Blood Urea Nitrogen 21 mg/dl (9-20); Creatinine,Serum 1.10 mg/dl (0.66-1.25); Estimated Glomerular Filt Rate 65 ml/min (>60); GFR (African American) 79 ML/MIN (>60)
[2025-07-18] MEDS: 0.9 % SODIUM CHLORIDE 50 ML VIAL IV ×2 (10:12)
[2025-07-18] MEDS: SODIUM CHLORIDE 0.9% 10ML SYR (RAD ONLY) 10 ML IV ×2 (10:12)
[2025-07-18] MEDS: IOPAMIDOL-370 (76%);100ML BOTTLE 80 ML IV ×2 (10:12)
--- OUTSIDE RECORDS SUMMARY | 2025-09-05 20:00 | XMS_ITS | Clinical Summary ---
Author Organization Unknown Care Team Providers Care Public Health Microbiologist Name Role Phone JACQUIE DPM, PROSPER Unavailable Unavailable OSCAR OT, NAEEM Unavailable Unavailable SK[employer]OHN[employer] JUNIOR ELECTRICAL ENGINEER, HANSEL Unavailable Unavailable LISA PT, CHACE Unavailable Unavailable MIKE RN, MARLY Unavailable Unavailable MESHA RN, GINI Unavailable Unavailable Payers Payer Name Policy Type Policy Number Effective Date Expira tion Date MEDICARE [id number] Problems Condition Name Condition Details Condition Category Status Onset Date Resolution Date Last Treatment Date Treating Clinician Comments ENCOUNTER FOR ORTHOPEDIC AFTERCARE FOLLOWING SURGICAL AMP Active 05-10 00:00: 00 ACQUIRED ABSENCE OF OTHER RIGHT TOE(S) Active 05-10 00:00: 00 TYPE 2 DIABETES W DIABETIC PERIPHERAL ANGIOPATH W/O GANGRENE Active 05-10 00:00: 00 GROUP HOME (CURRENT) USE OF INSULIN Active 05-10 00:00: 00 UNSPECIFIED MOOD [AFFECTIVE] DISORDER Active 05-10 00:00: 00 HYPERLIPIDEM IA, UNSPECIFIED Active 05-10 00:00: 00 UNSPECIFIED OSTEOARTHRIT IS, UNSPECIFIED SITE Active 05-10 00:00: 00 OTHER SPECIFIED CHRONIC OBSTRUCTIVE PULMONARY DISEASE Active 05-10 00:00: 00 ESSENTIAL (PRIMARY) HYPERTENSION Active 05-10 00:00: 00 OBSTRUCTIVE SLEEP APNEA (ADULT) (PEDIATRIC) Active 05-10 00:00: 00 ATHSCL HEART DISEASE OF [place] CORONARY ARTERY W/O ANG PCTRS Active 05-10 00:00: 00 HYPOTHYROIDI SM, UNSPECIFIED Active 05-10 00:00: 00 PRESENCE OF RIGHT ARTIFICIAL KNEE JOINT Active 05-10 00:00: 00 Problems related to health literacy Active 05-10 00:00: 00 DEPENDENCE ON SUPPLEMENTAL OXYGEN Active 05-10 00:00: 00 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 Active 07-04 00:00: 00 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 Ordering Clinician Indication Dosage Frequency Signature (SIG) Comments Components Basaglar KwikPen U-100 Insulin 100 unit/mL (3 mL) subcutaneou s 05-10 00:00: 00 Yes [id number] DIABETES 40 unit BEDTIME 40 unit BEDTIME (route: subcutaneo us) Med Classific ation: Endocrine buspirone 7.5 mg tablet 05-10 00:00: 00 Yes [id number] ANXIETY 1 tablet 2 TIMES DAILY 1 tablet 2 TIMES DAILY (route: oral) Med Classific ation: Central Nervous System Agents carvedilol 12.5 mg tablet 05-10 00:00: 00 Yes [id number] BLOOD PRESSURE 1 tablet 2 TIMES DAILY 1 tablet 2 TIMES DAILY (route: oral) Med Classific ation: Cardiovas cular Therapy Agents cholecalcif devin (vitamin D3) 25 mcg (1,000 unit) capsule 05-10 00:00: 00 Yes [id number] SUPPLEMENT 1 capsule DAILY 1 capsule DAILY (route: oral) Med Classific ation: Electroly te Balance-N utritiona l Products daptomycin 500 mg/50 mL in 0.9 % sodium chloride intravenous piggyback 05-10 00:00: 00 06-12 23:59 :00 No [id number] ANTIBIOTIC 500 mg DAILY 500 mg DAILY (route: intravenou s) Med Classific ation: Anti-Infe ctive Agents Farxiga 5 mg tablet 05-10 00:00: 00 Yes [id number] DIABETES 1 tablet DAILY 1 tablet DAILY (route: oral) Med Classific ation: Endocrine ferrous gluconate 324 mg (37.5 mg iron) tablet 05-10 00:00: 00 Yes [id number] SUPPLEMENT 1 tablet DAILY 1 tablet DAILY (route: oral) Med Classific ation: Electroly te Balance-N utritiona l Products insulin lispro (U-100) 100 unit/mL subcutaneou s pen 05-10 00:00: 00 Yes [id number] DIABETES 16 unit 2 TIMES DAILY 16 unit 2 TIMES DAILY (route: subcutaneo us) Med Classific ation: Endocrine ipratropium 0.5 mg-albutero l 2.5 mg/2.5 mL solution for nebulizatio n 05-10 00:00: 00 Yes [id number] WHEEZING 0.5 mg EVERY 6 HOURS 0.5 mg EVERY 6 HOURS (route: inhalation ) Med Classific ation: Respirato ry Therapy Agents levothyroxi ne 125 mcg tablet 05-10 00:00: 00 Yes [id number] THYROID 1 tablet DAILY 1 tablet DAILY (route: oral) Med Classific ation: Endocrine minocycline 100 mg capsule 05-10 00:00: 00 Yes [id number] ANTIBIOTIC 1 capsule EVERY 12 HOURS 1 capsule EVERY 12 HOURS (route: oral) Med Classific ation: Anti-Infe ctive Agents montelukast 10 mg tablet 05-10 00:00: 00 Yes [id number] ASTHMA 1 tablet BEDTIME 1 tablet BEDTIME (route: oral) Med Classific ation: Respirato ry Therapy Agents oxycodone 5 mg tablet 05-10 00:00: 00 Yes [id number] PAIN 1 tablet EVERY 4 HOURS 1 tablet EVERY 4 HOURS (route: oral) Med Classific ation: Analgesic , Anti-infl ammatory or Antipyret ic oxygen gas for inhalation 05-10 00:00: 00 Yes [id number] COPD 3 Liter O2 - PRN 3 Liter O 2 - PRN (route: inhalation ) Alternate Route: O2 - NASAL CANNULA. Med Classific ation: Medical Supplies and Durable Medical Equipment (DME) pantoprazol e 40 mg tablet,annie yed release 05-10 00:00: 00 Yes [id number] GERD 1 tablet DAILY 1 tablet DAILY (route: oral) Med Classific ation: Gastroint estinal Therapy Agents Trelegy Ellipta 200 mcg-62.5 mcg-25 mcg powder for inhalation 05-10 00:00: 00 Yes [id number] COPD 1 inhalat ion DAILY 1 inhalation DAILY (route: inhalation ) Med Classific ation: Respirato ry Therapy Agents venlafaxine 75 mg tablet 05-10 00:00: 00 Yes [id number] DEPRESSION 1 tablet DAILY 1 tablet DAILY (route: oral) Med Classific ation: Central Nervous System Agents venlafaxine ER 150 mg tablet,exte nded release 24 hr 05-10 00:00: 00 Yes [id number] DEPRESSION 1 tablet DAILY 1 tablet DAILY (route: oral) Med Classific ation: Central Nervous System Agents Normal Saline Flush 0.9 % injection syringe 05-14 00:00: 00 07-04 23:59 :00 No [id number] FLUSH PICC BEFORE AND AFTER IV ANTIBIOTIC 10 mL DAILY 10 mL DAILY (route: injection) Med Classific ation: Electroly te Balance-N utritiona l Products aspirin 81 mg tablet,annie yed release 05-30 00:00: 00 Yes [id number] PREVENTATIV E FOR HEART 1 tablet DAILY 1 tablet DAILY (route: oral) Med Classific ation: Hematolog ical Agents atorvastati n 80 mg tablet 05-30 00:00: 00 Yes [id number] CHOLESTEROL 1 tablet DAILY 1 tablet DAILY (route: oral) Med Classific ation: Cardiovas cular Therapy Agents clopidogrel 75 mg tablet 05-30 00:00: 00 Yes [id number] ANTIPLATELE T 1 tablet DAILY 1 tablet DAILY (route: oral) Med Classific ation: Hematolog ical Agents felodipine ER 10 mg tablet,exte nded release 24 hr 05-30 00:00: 00 Yes [id number] BLOOD PRESSURE 1 tablet DAILY 1 tablet DAILY (route: oral) Med Classific ation: Cardiovas cular Therapy Agents losartan 100 mg tablet 05-30 00:00: 00 Yes [id number] BLOOD PRESSURE 1 tablet BEDTIME 1 tablet BEDTIME (route: oral) Med Classific ation: Cardiovas cular Therapy Agents metformin ER 500 mg tablet,exte nded release 24 hr 05-30 00:00: 00 Yes [id number] GLUCOSE CONTROL 2 tablet 2 TIMES DAILY 2 tablet 2 TIMES DAILY (route: oral) Med Classific ation: Endocrine Betadine 10 % topical solution 04 00:00: 00 Yes [id number] WOUND CARE Per instruc tions DIRECTED Per instructio ns DIRECTED (route: topical) Med Classific ation: Dermatolo gical Vital Signs Vital Name Observation Time Observation Value Commen ts Temperature 2025-07-17 13:51:00.000 96.7 [degF] Temperature 2025-07-13 15:56:00.000 97.8 [degF] Temperature 2025-07-12 15:30:00.000 97.3 [degF] Pulse 2025-07-17 13:51:00.000 62 /min Pulse 2025-07-13 15:56:00.000 82 /min Pulse 2025-07-12 15:30:00.000 77 /min O2 Saturation (%) 2025-07-17 13:51:00.000 96 % O2 Saturation (%) 2025-07-12 15:33:00.000 97 % Respirations 2025-07-17 13:51:00.000 18 /min Respirations 2025-07-13 15:56:00.000 18 /min Respirations 2025-07-12 15:30:00.000 18 /min Systolic Blood Pressure 2025-07-17 13:51:00.000 110 mm [Hg] Systolic Blood Pressure 2025-07-13 15:56:00.000 122 mm [Hg] Systolic Blood Pressure 2025-07-12 15:30:00.000 152 mm [Hg] Diastolic Blood Pressure 2025-07-17 13:51:00.000 62 mm [Hg] Diastolic Blood Pressure 2025-07-13 15:56:00.000 78 mm [Hg] Diastolic Blood Pressure 2025-07-12 15:30:00.000 81 mm [Hg] Plan of Treatment Planned Activity Planned Date Details Comments Future Scheduled Test INSTRUCT P ATIENT/CAREGIVER IN OXYGEN THERAPY INCLUDING ADMINISTRATION, CARE OF EQUIPMENT AND SAFETY. [code = INSTRUCT PATIENT/CAREGIVER IN OXYGEN THERAPY INCLUDING ADMINISTRATION, CARE OF EQUIPMENT AND SAFETY.] Future Scheduled Test SKILLED NU RSE FOR INSTRUCTIONS / REINFORCEMENT OF / MANAGEMENT OF DIABETES TO INCLUDE DIET, SKIN CARE, MEDICATION MANAGEMENT, BLOOD GLUCOSE TESTING AND DIABETIC FOOT CARE. UTILIZES DEXCOM FOR FREQUENT GLUCOSE MONITORING. [code = SKILLED NURSE FOR INSTRUCTIONS / REINFORCEMENT OF / MANAGEMENT OF DIABETES TO INCLUDE DIET, SKIN CARE, MEDICATION MANAGEMENT, BLOOD GLUCOSE TESTING AND DIABETIC FOOT CARE. UTILIZES DEXCOM FOR FREQUENT GLUCOSE MONITORING.] Future Scheduled Test SKILLED NU RSE TO PROVIDE SKILLED TEACHING TO PATIENT/CAREGIVER OF HYPERTENSION TO INCLUDE MEDICATION MANAGEMENT, SELF-ASSESSMENT, LOW SODIUM DIET, AND TRACKING OF BLOOD PRESSURE RESULTS. [code = SKILLED NURSE TO PROVIDE SKILLED TEACHING TO PATIENT/CAREGIVER OF HYPERTENSION TO INCLUDE MEDICATION MANAGEMENT, SELF-ASSESSMENT, LOW SODIUM DIET, AND TRACKING OF BLOOD PRESSURE RESULTS.] Future Scheduled Test SKILLED NU RSE TO OBSERVE AND ASSESS RESPIRATORY SYSTEM TO IDENTIFY CHANGES AND INTERVENE TO MINIMIZE COMPLICATIONS. SKILLED NURSE TO PROVIDE SKILLED TEACHING RELATED TO ALTERED RESPIRATORY STATUS INCLUDING PATHOPHYSIOLOGY, NUTRITION, MEDICATION REGIMEN, AND PERMITTED ACTIVITIES. [code = SKILLED NURSE TO OBSERVE AND ASSESS RESPIRATORY SYSTEM TO IDENTIFY CHANGES AND INTERVENE TO MINIMIZE COMPLICATIONS. SKILLED NURSE TO PROVIDE SKILLED TEACHING RELATED TO ALTERED RESPIRATORY STATUS INCLUDING PATHOPHYSIOLOGY, NUTRITION, MEDICATION REGIMEN, AND PERMITTED ACTIVITIES.] Future Scheduled Test SKILLED NU RSE FOR OBSERVATION / ASSESSMENT OF GASTROINTESTINAL STATUS AND TO INTERVENE TO MINIMIZE COMPLICATIONS. SKILLED NURSE TO PROVIDE SKILLED TEACHING/REINFORCEMENT RELATED TO ALTERED GASTROINTESTINAL STATUS INCLUDING PATHOPHYSIOLOGY, SELF CARE MANAGEMENT, NUTRITIONAL REQUIREMENTS, AND MEDICATION REGIMEN [code = SKILLED NURSE FOR OBSERVATION / ASSESSMENT OF GASTROINTESTINAL STATUS AND TO INTERVENE TO MINIMIZE COMPLICATIONS. SKILLED NURSE TO PROVIDE SKILLED TEACHING/REINFORCEMENT RELATED TO ALTERED GASTROINTESTINAL STATUS INCLUDING PATHOPHYSIOLOGY, SELF CARE MANAGEMENT, NUTRITIONAL REQUIREMENTS, AND MEDICATION REGIMEN] Future Scheduled Test SKILLED NU RSE TO OBSERVE AND ASSESS PATIENT WITH GENERALIZED DEPRESSION. ASSESS NEED FOR MEDICATION, MEDICATION CHANGES AND POTENTIAL NEED FOR REFERRAL TO PROVIDE COUNSELING AND ASSISTANCE WITH MANAGING DEPRESSION. [code = SKILLED NURSE TO OBSERVE AND ASSESS PATIENT WITH GENERALIZED DEPRESSION. ASSESS NEED FOR MEDICATION, MEDICATION CHANGES AND POTENTIAL NEED FOR REFERRAL TO PROVIDE COUNSELING AND ASSISTANCE WITH MANAGING DEPRESSION.] Future Scheduled Test SKILLED NU RSE FOR OBSERVATION/ASSESSMENT OF PAIN, EFFECTIVENESS OF PAIN MANAGEMENT INCLUDING MEDICATION REVIEW AND PHARMACOLOGICAL AND NONPHARMACOLOGICAL TREATMENTS AND SKILLED TEACHING RELATED TO PAIN MANAGEMENT. SKILLED NURSE TO INTERVENE WITH INCREASED PAIN LEVEL TO MINIMIZE COMPLICATIONS. [code = SKILLED NURSE FOR OBSERVATION/ASSESSMENT OF PAIN, EFFECTIVENESS OF PAIN MANAGEMENT INCLUDING MEDICATION REVIEW AND PHARMACOLOGICAL AND NONPHARMACOLOGICAL TREATMENTS AND SKILLED TEACHING RELATED TO PAIN MANAGEMENT. SKILLED NURSE TO INTERVENE WITH INCREASED PAIN LEVEL TO MINIMIZE COMPLICATIONS.] Future Scheduled Test SKILLED NU RSE TO FOCUS ON IDENTIFIED NEED FOR HIGH RISK MEDICATION INTERVENTION. [code = SKILLED NURSE TO FOCUS ON IDENTIFIED NEED FOR HIGH RISK MEDICATION INTERVENTION.] Future Scheduled Test SKILLED NU RSE TO OBSERVE AND ASSESS INTEGUMENTARY STATUS TO IDENTIFY CHANGES AND INTERVENE TO MINIMIZE COMPLICATIONS. CLINICIAN TO PROVIDE SKILLED TEACHING RELATED TO ALTERED SKIN INTEGRITY INCLUDING PATHOPHYSIOLOGY, NUTRITION, MEDICATION REGIMEN, AND MEASURES TO PROMOTE OPTIMAL SKIN INTEGRITY. [code = SKILLED NURSE TO OBSERVE AND ASSESS INTEGUMENTARY STATUS TO IDENTIFY CHANGES AND INTERVENE TO MINIMIZE COMPLICATIONS. CLINICIAN TO PROVIDE SKILLED TEACHING RELATED TO ALTERED SKIN INTEGRITY INCLUDING PATHOPHYSIOLOGY, NUTRITION, MEDICATION REGIMEN, AND MEASURES TO PROMOTE OPTIMAL SKIN INTEGRITY.] Future Scheduled Test WOUND CARE TO SECOND TOE SURGICAL WOUND CLEANSE WOUND WITH SALINE, APPLY BETADINE TO WOUND, COVER WITH DRY GAUZE, WRAP WITH ROLL GAUZE AND COBAN. TO CHANGE DRESSING 2-3 TIME A WEEK IN ABSENCE OF HOME HEALTH NURSING. [code = WOUND CARE TO SECOND TOE SURGICAL WOUND CLEANSE WOUND WITH SALINE, APPLY BETADINE TO WOUND, COVER WITH DRY GAUZE, WRAP WITH ROLL GAUZE AND COBAN. TO CHANGE DRESSING 2-3 TIME A WEEK IN ABSENCE OF HOME HEALTH NURSING.] Future Scheduled Test SKILLED NU RSE PRN VISIT ORDER: 3 PRN VISITS MAY BE PERFORMED DURING THIS CERTIFICATION PERIOD FOR THE FOLLOWING REASON(S): WOUND CARE, FALLS, MEDICATION ISSUES AND EXACERBATION OF COMORBITIES. SKILLED NURSE TO EVALUATE AND DEVELOP PLAN OF CARE TO BE SIGNED BY THE PHYSICIAN. SKILLED NURSE TO ASSESS/EVALUATE ANY CONDITIONS THAT PRESENT THEMSELVES AND THAT WILL IMPACT THE PLAN OF CARE DURING THE COURSE OF THE EPISODE TO IDENTIFY CHANGES AND INTERVENE TO MINIMIZE COMPLICATIONS. TEACH AND MONITOR PATIENT/CAREGIVER ABILITY TO SAFELY ADMINISTER MEDICATIONS. PHONE TOUCHPOINTS CAN BE PERFORMED NEEDED TO SUPPLEMENT THE PLAN OF CARE. [code = SKILLED NURSE PRN VISIT ORDER: 3 PRN VISITS MAY BE PERFORMED DURING THIS CERTIFICATION PERIOD FOR THE FOLLOWING REASON(S): WOUND CARE, FALLS, MEDICATION ISSUES AND EXACERBATION OF COMORBITIES. SKILLED NURSE TO EVALUATE AND DEVELOP PLAN OF CARE TO BE SIGNED BY THE PHYSICIAN. SKILLED NURSE TO ASSESS/EVALUATE ANY CONDITIONS THAT PRESENT THEMSELVES AND THAT WILL IMPACT THE PLAN OF CARE DURING THE COURSE OF THE EPISODE TO IDENTIFY CHANGES AND INTERVENE TO MINIMIZE COMPLICATIONS. TEACH AND MONITOR PATIENT/CAREGIVER ABILITY TO SAFELY ADMINISTER MEDICATIONS. PHONE TOUCHPOINTS CAN BE PERFORMED NEEDED TO SUPPLEMENT THE PLAN OF CARE.] Future Scheduled Test SKILLED NU RSE TO OBSERVE AND ASSESS CARDIOVASCULAR SYSTEM TO IDENTIFY CHANGES AND INTERVENE TO MINIMIZE COMPLICATIONS AND PROMOTE SELF CARE MANAGEMENT. SKILLED NURSE TO PROVIDE SKILLED TEACHING RELATED TO PATHOPHYSIOLOGY, DISEASE MANAGEMENT, SAFE MEDICATION ADMINISTRATION, WEIGHT/EDEMA MANAGEMENT, PERMITTED ACTIVITIES, S/SX OF EXACERBATION, AND S/SX TO NOTIFY AGENCY, PHYSICIAN OR 911 RELATED TO THE DIAGNOSIS OF CAD/HTN [code = SKILLED NURSE TO OBSERVE AND ASSESS CARDIOVASCULAR SYSTEM TO IDENTIFY CHANGES AND INTERVENE TO MINIMIZE COMPLICATIONS AND PROMOTE SELF CARE MANAGEMENT. SKILLED NURSE TO PROVIDE SKILLED TEACHING RELATED TO PATHOPHYSIOLOGY, DISEASE MANAGEMENT, SAFE MEDICATION ADMINISTRATION, WEIGHT/EDEMA MANAGEMENT, PERMITTED ACTIVITIES, S/SX OF EXACERBATION, AND S/SX TO NOTIFY AGENCY, PHYSICIAN OR 911 RELATED TO THE DIAGNOSIS OF CAD/HTN] Future Scheduled Test PATIENT RE CEIVES THE FOLLOWING SERVICES [employer]. [code = PATIENT RECEIVES THE FOLLOWING SERVICES [employer]GEN [employer].] Future Scheduled Test PATIENT/CA REGIVER WILL BE KNOWLEDGEABLE OF DISCHARGE PLANS AND WILL DEMONSTRATE/PROVIDE EDUCATION AND RESOURCES NEEDED TO MAINTAIN HEALTH. [code = PATIENT/CAREGIVER WILL BE KNOWLEDGEABLE OF DISCHARGE PLANS AND WILL DEMONSTRATE/PROVIDE EDUCATION AND RESOURCES NEEDED TO MAINTAIN HEALTH.] Future Scheduled Test AGENCY THEE L [facility]HEALTH CARE PROVIDER AND MAY ACCEPT ORDERS FROM THE FOLLOWING PHYSICIANS: PROSPER MARISCAL. [code = AGENCY WILL DISCHARGE PATIENT TO [facility] PHYSICIAN/HEALTH CARE PROVIDER AND MAY ACCEPT ORDERS FROM THE FOLLOWING PHYSICIANS: PROSPER MARISCAL.] Future Scheduled Test CLINICIAN TO OBSERVE AND ASSESS FOR SIGNS OF ANXIETY AND INSTRUCT PATIENT/CAREGIVERS IN HEALTHY BEHAVIORS AND MANAGEMENT STRATEGIES. [code = CLINICIAN TO OBSERVE AND ASSESS FOR SIGNS OF ANXIETY AND INSTRUCT PATIENT/CAREGIVERS IN HEALTHY BEHAVIORS AND MANAGEMENT STRATEGIES.] Future Scheduled Test CLINICIAN TO EDUCATE PATIENT / CAREGIVER IN FALL PREVENTION AND PROVIDE INTERVENTIONS TO REDUCE FALL RISK AND ENHANCE HOME SAFETY [code = CLINICIAN TO EDUCATE PATIENT / CAREGIVER IN FALL PREVENTION AND PROVIDE INTERVENTIONS TO REDUCE FALL RISK AND ENHANCE HOME SAFETY] Future Scheduled Test PSYCHOSOCI AL / COGNITIVE ASSESSMENT INDICATES NO NEED FOR SOCIAL, FINANCIAL, OR TRANSPORTATION SUPPORT OR FOR ADDITIONAL CARE PROVIDERS/DISCIPLINES OR REFERRALS TO OUTSIDE ENTITIES. [code = PSYCHOSOCIAL / COGNITIVE ASSESSMENT INDICATES NO NEED FOR SOCIAL, FINANCIAL, OR TRANSPORTATION SUPPORT OR FOR ADDITIONAL CARE PROVIDERS/DISCIPLINES OR REFERRALS TO OUTSIDE ENTITIES.] Future Scheduled Test PHYSICAL T HERAPIST TO EVALUATE/ASSESS AND DEVELOP PHYSICAL THERAPY PLAN OF CARE TO BE SIGNED BY THE PHYSICIAN. TEACH AND MONITOR PATIENT/CAREGIVER ABILITY TO SAFELY ADMINISTER MEDICATIONS. PHONE TOUCHPOINTS CAN BE PERFORMED NEEDED TO SUPPLEMENT THE PLAN OF CARE. PHYSICAL THERAPY TO PROVIDE TECHNIQUES DESIGNED TO IMPROVE BED MOBILITY. PHYSICAL THERAPY TO INSTRUCT IN SAFE TRANSFERS WITH APPROPRIATE BODY MECHANICS AND EQUIPMENT. CLINICIAN TO EDUCATE PATIENT / CAREGIVER IN FALL PREVENTION AND PROVIDE INTERVENTIONS TO REDUCE FALL RISK AND ENHANCE HOME SAFETY PHYSICAL THERAPY TO PROVIDE BALANCE TRAINING TO REDUCE FALL RISK DURING FUNCTIONAL ACTIVITIES. PHYSICAL THERAPY TO EVALUATE GAIT AND PROVIDE GAIT TRAINING USING APPROPRIATE ASSISTIVE DEVICE NEEDED TO ENSURE PATIENT SAFETY. PHYSICAL THERAPIST TO PROVIDE INTERVENTIONS AND/OR EDUCATION REGARDING PAIN CONTROL INCLUDING MEDICATION REVIEW AND PHARMACOLOGICAL AND NON-PHARMACOLOGICAL METHODS PHYSICAL THERAPY TO PROVIDE INTERVENTIONS DESIGNED TO ENHANCE THE PULMONARY FUNCTION OF PATIENT WITH (ACUTE OR SEVERE) PULMONARY DYSFUNCTION. PATIENT/CAREGIVER WILL BE KNOWLEDGEABLE OF DISCHARGE PLANS AND WILL DEMONSTRATE/PROVIDE EDUCATION AND RESOURCES NEEDED TO MAINTAIN HEALTH. [code = PHYSICAL THERAPIST TO EVALUATE/ASSESS AND DEVELOP PHYSICAL THERAPY PLAN OF CARE TO BE SIGNED BY THE PHYSICIAN. TEACH AND MONITOR PATIENT/CAREGIVER ABILITY TO SAFELY ADMINISTER MEDICATIONS. PHONE TOUCHPOINTS CAN BE PERFORMED NEEDED TO SUPPLEMENT THE PLAN OF CARE. PHYSICAL THERAPY TO PROVIDE TECHNIQUES DESIGNED TO IMPROVE BED MOBILITY. PHYSICAL THERAPY TO INSTRUCT IN SAFE TRANSFERS WITH APPROPRIATE BODY MECHANICS AND EQUIPMENT. CLINICIAN TO EDUCATE PATIENT / CAREGIVER IN FALL PREVENTION AND PROVIDE INTERVENTIONS TO REDUCE FALL RISK AND ENHANCE HOME SAFETY PHYSICAL THERAPY TO PROVIDE BALANCE TRAINING TO REDUCE FALL RISK DURING FUNCTIONAL ACTIVITIES. PHYSICAL THERAPY TO EVALUATE GAIT AND PROVIDE GAIT TRAINING USING APPROPRIATE ASSISTIVE DEVICE NEEDED TO ENSURE PATIENT SAFETY. PHYSICAL THERAPIST TO PROVIDE INTERVENTIONS AND/OR EDUCATION REGARDING PAIN CONTROL INCLUDING MEDICATION REVIEW AND PHARMACOLOGICAL AND NON-PHARMACOLOGICAL METHODS PHYSICAL THERAPY TO PROVIDE INTERVENTIONS DESIGNED TO ENHANCE THE PULMONARY FUNCTION OF PATIENT WITH (ACUTE OR SEVERE) PULMONARY DYSFUNCTION. PATIENT/CAREGIVER WILL BE KNOWLEDGEABLE OF DISCHARGE PLANS AND WILL DEMONSTRATE/PROVIDE EDUCATION AND RESOURCES NEEDED TO MAINTAIN HEALTH.] Goal Patient Goal - WOUND TO HEAL Goal 2025-07-04 Patient Goal - WOUND TO HEAL Goal Provider Goal - PATIENT WILL VERBALIZE AND DEMONSTRATE KNOWLEDGE OF MEASURES TO ENSURE ACCURATE AND SAFE ADMINISTRATION OF OXYGEN BY 07/27/25 Goal Provider Goal - PATIENT / CAREGIVER WILL VERBALIZE / DEMONSTRATE ADEQUATE KNOWLEDGE OF ENDOCRINE STATUS. GOAL TO BE MET BY 07/27/25 Goal Provider Goal - PATIENT/CAREGIVER WILL VERBALIZE/DEMONSTRATE ABILITY TO CARE FOR HYPERTENSION. GOAL TO BE MET BY 07/25/25 Goal Provider Goal - RESPIRATORY EXACERBATIONS WILL BE IDENTIFIED PROMPTLY AND INTERVENTIONS INITIATED TO MINIMIZE ASSOCIATED RISK. PATIENT/CAREGIVER WILL VERBALIZE/DEMONSTRATE AN ABILITY TO CARE FOR ALTERED RESPIRATORY STATUS. GOAL TO BE MET BY 07/26/25 Goal Provider Goal - GASTROINTESTINAL STATUS WILL BE EVALUATED AND EXACERBATIONS IDENTIFIED WITH INTERVENTIONS IMPLEMENTED TO MINIMIZE COMPLICATIONS. PATIENT / CAREGIVER WILL VERBALIZE/DEMONSTRATE ABILITY TO CARE FOR ALTERED GASTROINTESTINAL STATUS. GOAL TO BE MET BY 07/27/25 Goal Provider Goal - PATIENT/CAREGIVER WILL VERBALIZE MEASURES TO COPE WITH DEPRESSION AND STATE SIGNS AND SYMPTOMS TO REPORT TO PHYSICIAN BY 07/19/25 Goal Provider Goal - INCREASED PAIN OR PAIN CONTROL MEASURES WILL BE IDENTIFIED AND PROMPTLY REPORTED TO THE PHYSICIAN. PATIENT / CAREGIVER WILL VERBALIZE UNDERSTANDING OF PHARMACOLOGIC AND NON-PHARMACOLOGIC PAIN CONTROL MEASURES. GOAL TO BE MET BY 07/28/25. Goal Provider Goal - PATIENT/CAREGIVER DEMONSTRATES ABILITY TO ADHERE TO MEDICATION REGIMEN. GOAL TO BE MET BY 07/29/25 Goal Provider Goal - CHANGES IN SKIN INTEGRITY STATUS WILL BE IDENTIFIED AND REPORTED TO THE PHYSICIAN FOR PROMPT INTERVENTION. PATIENT / CAREGIVER WILL VERBALIZE/DEMONSTRATE ADEQUATE KNOWLEDGE OF INTEGUMENTARY STATUS AND APPROPRIATE MEASURES TO PROMOTE SKIN INTEGRITY AND PREVENT INJURY. GOAL TO BE MET BY 07/28/25 Goal Provider Goal - PATIENT / CAREGIVER WILL VERBALIZE / DEMONSTRATE ABILITY TO PERFORM WOUND CARE. WOUND STATUS WILL IMPROVE EVIDENCED BY A DECREASE IN SIZE, DRAINAGE, ABSENCE OF INFECTION, AND DECREASED PAIN. GOAL TO BE MET BY 07/28/15 Goal Provider Goal - A PLAN OF CARE WILL BE ESTABLISHED THAT MEETS ALL PATIENT'S NURSING NEEDS AND COUNTERSIGNED BY PHYSICIAN. 07/18/25 Goal Provider Goal - CARDIOVASCULAR EXACERBATIONS WILL BE IDENTIFIED PROMPTLY AND INTERVENTIONS INITIATED TO MINIMIZE ASSOCIATED RISK. PATIENT/CAREGIVER WLL VERBALIZE/DEMONSTRATE ABILITY TO CARE FOR ALTERED CARDIOVASCULAR STATUS. GOALS TO BE MET BY 07/24/25 Goal Provider Goal - OXYGEN [place] INVOLVED. Goal Provider Goal - PATIENT AND/OR CAREGIVER WILL BE IN AGREEMENT WITH DISCHARGE PLANS AND WILL VERBALIZE HAVING RESOURCES AND KNOWLEDGE TO MAINTAIN HEALTH. 07/21/25 Goal Provider Goal - PATIENT WILL REMAIN SAFE AND NEEDS WILL BE MET BY COLLABORATING ON POC AND COMMUNICATING CHANGES IN POC AND CHANGES AFFECTING DISCHARGE PLAN WITH PATIENT, CAREGIVER, RECEIVING PHYSICIAN/HEALTH CARE PROVIDER, AND OTHER PHYSICIANS WRITING ORDERS ON THE POC THROUGHOUT CERTIFICATION PERIOD. 07/23/25 Goal Provider Goal - PATIENT/CAREGIVER WILL VERBALIZE AND DEMONSTRATE HEALTHY BEHAVIORS AND STRATEGIES TO MANAGE ANXIETY. GOAL TO BE MET BY 07/28/25 Goal Provider Goal - PATIENT TO DEMONSTRATE REDUCED FALL RISK AND IMPROVE HOME SAFETY BY 07/20/25 Goal Provider Goal - PATIENT/CAREGIVER VERBALIZES AND DEMONSTRATES ABILITY FOR THE PATIENT TO FUNCTION WITHIN THEIR COMMUNITY AND TO PARTICIPATE IN THE DEVELOPMENT AND IMPLEMENTATION OF THEIR CARE PLAN THROUGHOUT THE CERTIFICATION PERIOD. Goal Provider Goal - A PHYSICAL THERAPY PLAN OF CARE WILL BE ORDERED BY PHYSICIAN AND PROVIDED BY PHYSICAL THERAPY. ALL GOALS TO BE MET BY END OF CURRENTLY APPROVED PLAN OF CARE. PATIENT WILL DEMONSTRATE IMPROVED BED MOBILITY. GOAL TO BE MET BY 09 04 25 PATIENT / CAREGIVER WILL DEMONSTRATE SAFE TRANSFERS USING APPROPRIATE BODY MECHANICS AND EQUIPMENT. GOAL TO BE MET BY 09 14 25 PATIENT TO DEMONSTRATE REDUCED FALL RISK AND IMPROVE HOME SAFETY BY 09 04 25 PATIENT/CAREGIVER WILL DEMONSTRATE DECREASED FALL RISK DURING FUNCTIONAL ACTIVITIES. GOAL TO BE MET BY 09 04 25 PATIENT WILL DEMONSTRATE SAFE GAIT TECHNIQUE WITH ASSISTIVE DEVICES NEEDED TO MINIMIZE RISK OF INJURY. GOAL TO BE MET BY 09 07 28 PATIENT/CAREGIVER WILL ACHIEVE EFFECTIVE PAIN CONTROL AND DEMONSTRATE UNDERSTANDING OF BOTH PHARMACOLOGIC AND NON-PHARMACOLOGIC PAIN CONTROL METHODS. GOAL TO BE MET BY 09 07 25 PATIENT WILL DEMONSTRATE IMPROVED PULMONARY FUNCTION EVIDENCED BY CLEAR AIRWAY PASSAGES, FREE OF CYANOSIS AND DYSPNEA, A RESULT OF PULMONARY PHYSICAL THERAPY. GOAL TO BE MET BY 09 07 25 PATIENT AND/OR CAREGIVER WILL BE IN AGREEMENT WITH DISCHARGE PLANS AND WILL VERBALIZE HAVING RESOURCES AND KNOWLEDGE TO MAINTAIN HEALTH. Progress Notes Progress Notes <paragraph>[Visit Date: 2024 by KODI AMBROCIO LPN]:</paragraph><paragraph>REASON FOR SKILLED VISIT SUPPORTING MEDICAL NECESSITY: SUBSEQUENT VISIT FOR WOUND CARE TO FOOT.</paragraph><paragraph></paragraph><paragraph>HOMEBOUND STATUS: PATIENT REQUIRES ASSISTANCE TO AMBULATE, ASSISTANCE TO LEAVE HOME. TAXING EFFORT TO LEAVE HOME.</paragraph><paragraph></paragraph><paragraph>ASSESSMENT: PATIENT SEEN SITTING IN HIS CHAIR PATIENT ALERT AND ORIENTED, DENIES ANY PAIN. VITALS TAKEN AND WNL. REPORTS BLOOD SUGARS RUNNING AROUND 140. BOWEL AND BLADDER ARE NORMAL. WOUND CARE PERFORMED ORDERED TO FOOT. AREA CLOSED . WOUND CARE PERFORMED AND FOOT WRAPPED. PATIENT DENIES ANY RECENT MEDICATION CHANGES. NO FALLS. </paragraph><paragraph></paragraph><paragraph>CONTINUE CURRENT PLAN OF CARE.</paragraph><paragraph></paragraph><paragraph>PLAN FOR NEXT VISIT: WOUND CARE, ASSESS RESPIRATORY STATUS, VITAL SIGNS, DISEASE PROCESSES EDUCATION AND MONITORING.</paragraph> Encounters Start Date/Time End Date/Time Encounter Type Admission Type Attending [facility] Care Department Encounter ID Discharge Date Discharge Status Discharge Condition Discharge Reason Percent Goals Met 2025-07-09 00:00:00 2025-09-06 00:00:00 Outpatient RECERTIFIC ATION [facility] [id number] [id number]
== END 2025-07-18 23:59 | disposition home or self-care (01) ==
LOC: RAD 07:59
PROVIDERS: PCP Emergency Medicine; Visit Provider Nurse Practitioner
DX: I65.21 Occlusion and stenosis of right carotid artery (principal); I71.21 Aneurysm of the ascending aorta, without rupture; I25.10 Atherosclerotic heart disease of native coronary artery without angina pectoris; I10 Essential (primary) hypertension; I73.9 Peripheral vascular disease, unspecified
CPT/HCPCS: 36415; 70498; 71275; 82565; 84520; Q9967